=== PATIENT | female | born 1935 | race Caucasian/White ===

== ENCOUNTER 2017-02-18 07:31 | Emergency (ER) | payer MEDICARE, MEDICAID ==
[~2017-02-18] VITALS: Ht 162.6 cm; Wt 77.1 kg
[~2017-02-18 07:31] MED LIST: ACET-1742 PO; ASCO500C14 PO; ASP325T PO; CARV12.53 PO; CEFU500T PO; FLC1T PO; FRS325T PO; INSA10V SC; LOSA100T16 PO; MAGN400T6 PO; MODA200T PO; MULT1CAP27 PO; PNT40TEC PO; PRX10T PO; QTP25T PO; SIMV10TA3 PO; [UNRECOGNIZED DRUG - CODE] SQ
[2017-02-18] MEDS ORDERED: fentaNYL INJECTION 100 MCG/2 ML AMP IM STA (07:44)
--- NOTE | 2017-02-18 07:44 | ED Fall/Injury ---
General Stated Complaint: L SHOULDER PAIN Source: patient, caregiver Exam Limitations: no limitations History of Present Illness Time seen by provider: 07:39 Initial Comments Patient brought by private conveyance from the [facility], [place] after having slid out of bed trying to get up on her own. She states she did not strike her head but rather fell on her left arm and shoulder and is now having pain and will not move that arm secondary to pain. She states she did not pass out. She is having no pain anywhere else. She has a chronic history of loose stools. She still states that the bed was up to high and she needed help getting up to go the bathroom but could not get help in time so tried to go on her own and then slid to the floor. She also has a history of incontinence of stool. She denies any blood thinners. She is mostly wheelchair bound but can transfer with minimal assistance typically. Allergies and Home Medications Allergies Coded Allergies: diphenhydramine HCl (Unverified Allergy, Unknown, 04/28/11) Home Medications Acetaminophen 650 Mg Tablet.sa, 650 MG PO DAILY, (Reported) Ascorbic Acid 500 Mg Capsule.sa, 500 MG PO DAILY, (Reported) Aspirin 325 Mg Tab, 325 MG PO DAILY, (Reported) Carvedilol 12.5 Mg Tablet, 1 EACH PO BID, (Reported) Cefuroxime Axetil 500 Mg Tablet, 500 MG PO BID, #20 Ref 0 Prescribed by: EVANS HERNANDEZ on 05/07/16 0110 Ferrous Sulfate 325 Mg Tab, 325 MG PO BID WM, (Reported) Folic Acid 1 Mg Tab, 1 EACH PO DAILY, (Reported) Hum Insulin Nph/Reg Insulin Hm 1 Unit/0.01 Ml Soln, 10 UNIT SQ daily@1700, ( Reported) Insulin Aspart 10 Units/0.1 Ml Vial, 24 UNIT SC daily@0700, #1 (Reported) Losartan Potassium 100 Mg Tablet, 1 EACH PO DAILY, (Reported) Magnesium Oxide 400 Mg Tablet, 1 EACH PO BID WITH MEALS, (Reported) Modafinil 200 Mg Tablet, 200 MG PO DAILY, (Reported) Multivitamins 1 Each Capsule, 1 EACH PO DAILY, (Reported) Pantoprazole Sodium 40 Mg Tablet.dr, 1 TAB PO DAILY@0700, #30 (Reported) Paroxetine Hcl 10 Mg Tablet, 1 TAB PO DAILY, #30 (Reported) Quetiapine Fumarate 25 Mg Tablet, 1 TAB PO HS, #90 (Reported) Simvastatin 10 Mg Tablet, 10 MG PO HS, (Reported) Constitutional: see HPI, No chills, No fever, No malaise, No weakness Eyes: See HPI, Denies Blindness, Denies Blurred Vision, Denies Pain Ears, Nose, Mouth, Throat: denies mouth swelling, denies loose teeth Respiratory: No cough, No short of breath Cardiovascular: No chest pain, No edema, No palpitations, No syncope Gastrointestinal: No abdominal pain, No constipation, diarrhea, No nausea Genitourinary: No dysuria, No frequency Musculoskeletal: No back pain, joint pain (left shoulder), joint swelling ( left shoulder), No neck pain Skin: other (no abrasion, erythema or ecchymosis noted) Past Bipwndw-Cnvnve-Toatux Hx Patient Social History Alcohol Use: Denies Use Recreational Drug Use: No Smoking Status: Never a Smoker Recent Foreign Travel: No Contact w/Someone Who Travel: No Recent Hopitalizations: Yes ([facility], [place] [facility], [place]) Immunizations Up To Date PED Vaccines UTD: No Seasonal Allergies Seasonal Allergies: No Surgeries HX Surgeries: Yes Respiratory Hx Respiratory Disorders: Yes Cardiovascular Hx Cardiac Disorders: Yes Cardiac Disorders: Hypertension Neurological Hx Neurological Disorders: Yes (alzheimers) Reproductive System Hx Reproductive Disorders: No Sexually Transmitted Disease: No HIV/AIDS: No Genitourinary Hx Genitourinary Disorders: Yes Gastrointestinal Hx Gastrointestinal Disorders: Yes Gastrointestinal Disorders: Gastroesophageal Reflux Endocrine Hx Endocrine Disorders: Yes Endocrine Disorders: Diabetes, Insulin dep HEENT HX ENT Disorders: No Cancer Hx Cancer: No Psychosocial Hx Psychiatric Problems: Yes Behavioral Health Disorders: Anxiety, Depression Integumentary HX Skin/Integumentary Disorder: No Blood Transfusions Hx Blood Disorders: No Adverse Reaction to a Blood Tr: No Physical Exam Vital Signs Vital Sign - Last 12Hours 02/18/17 07:47 Temp 97.5 Pulse 82 Resp 16 B/P (MAP) 136/68 Pulse Ox 96 O2 Delivery Room Air Capillary Refill : General Appearance: WD/WN, mild distress HEENT: PERRL/EOMI, normal ENT inspection, pharynx normal Neck: non-tender, supple, normal inspection, limited range of motion (45 to the left, non tender) Cardiovascular: normal peripheral pulses, regular rate, rhythm, no edema Respiratory: chest non-tender, lungs clear, normal breath sounds, no respiratory distress, no accessory muscle use Gastrointestinal: normal bowel sounds, non tender, soft Back: normal inspection, no vertebral tenderness Extremities: other (left shoulder with modest swelling, no erythema or ecchymosis but tenderness to light palpation and refuses to move secondary to pain. 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, no motor/sensory deficits, alert, oriented x 3, other (motor, sensory and pain fibers intact to left extremity down to the fingers.) Skin: normal color, warm/dry Sharon Coma Score Best Eye Response: (4) Open Spontaneously Best Verbal Response: (5) Oriented Best Motor Response: (6) Obeys Commands Omar Total: 15 Progress/Results/Core Measures Results/Orders My Orders Orders - MERLIN SUMMERS Shoulder, Left, 3 Views (02/18/17 07:44) Elbow, Left, 3 Views (02/18/17 07:44) Cervical Spine 3 Views Or Less (02/18/17 07:44) Fentanyl Injection (Sublimaze Injection (02/18/17 07:44) Ondansetron Injection (Zofran Injectio (02/18/17 07:45) Chest 1 View, Ap/Pa Only (02/18/17 ) Hydrocodone/Apap 5/325 Tablet (Lortab 5 (02/18/17 09:15) Medications Given in ED Current Medications Medications Dose Ordered Sig/Luis A Route Start Time Stop Time Status Last Admin Dose Admin Ondansetron HCl 4 mg ONCE ONCE IM 02/18/17 07:45 02/18/17 07:48 DC 02/18/17 07:59 4 MG Vital Signs/I&O Vital Sign - Last 12Hours 02/18/17 02/18/17 02/18/17 07:47 07:57 07:59 Temp 97.5 97.5 97.5 Pulse 82 Resp 16 B/P (MAP) 136/68 Pulse Ox 96 O2 Delivery Room Air Progress Note #1: Time: 08:28 Progress Note Appears the patient slid out of bed while trying to get up and toilet herself. Sensory is no loss of consciousness and the patient has an acute finding of pain and swelling in the left shoulder we will x-ray that. She does have a moderate amount of limitation to left range of motion on her neck without any tenderness, step-off or other concerns so we will just obtain x-rays looking for gross fractures. Unknown what her baseline neck range of motion is and it is also possible that turning her neck further aggravates her left shoulder and that is limiting her movement. We'll treat her pain. Progress Note #2: Time: 08:53 Progress Note Patient with a proximal humerus fracture that is nondisplaced near classification one part and not in the anatomic neck rather it is across the greater tuberosity. She does not require urgent surgical consultation. We will put her in a sling try to give her adequate pain control and get her set up to follow up with her PCP or orthopedic surgeon of her choice in 4-7 days. Sling placed in ED. Diagnostic Imaging Diagonstic Imaging: Xray Plain Films/CT/US/NM/MRI: other (left shoulder and elbow) Comments Left prox Humeral Fx non displaced NAME: LILY WILHELM MED REC#: [id number] PT STATUS: REG ER : 1935 PHYSICIAN: MERLIN SUMMERS MD ADMIT DATE: 02/18/17/ER Draft Date of Exam:02/18/17 SHOULDER, LEFT, 3 VIEWS INDICATION: Fall pain FINDINGS: There are fractures of the proximal humerus through its neck also involving the greater tuberosity. There is no dislocation. There are glenohumeral and acromioclavicular arthritic changes. IMPRESSION: Fractures of the humeral neck and head at the greater tuberosity without dislocation. Underlying arthritis and osteopenia noted. Dictated on workstation # [id number] Dict: 02/18/17 0837 Trans: 02/18/17 0843 [facility] [id number] Interpreted by: BETTY IQBAL Electronically signed by: [facility], [place], [place] NAME: LILY WILHELM MED REC#: [id number] PT STATUS: REG ER : 1935 PHYSICIAN: MERLIN SUMMERS MD ADMIT DATE: 02/18/17/ER Draft Date of Exam:02/18/17 ELBOW, LEFT, 3 VIEWS INDICATION: Left elbow pain after fall out of bed. COMPARISON: None available. FINDINGS: No acute fracture or traumatic malalignment involving the left elbow. Minimal spurring of the medial and lateral humeral condyles at the insertion sites of the common flexor tendons. No avulsion injuries are seen. No elbow joint effusion. Mild soft tissue swelling along the dorsal aspect of the elbow. IMPRESSION: 1. No acute fracture or traumatic malalignment involving the elbow. Dictated on workstation # [id number] Dict: 02/18/1735 Trans: 02/18/1739 [facility] [id number] Interpreted by: CELI MITCHELL MD Electronically signed by: Reviewed: Reviewed by Pa Diagonstic Imaging: Xray Plain Films/CT/US/NM/MRI: c-spine Comments No Fracture or misalignment noted [place] [place], [place] NAME: CHOCO,LILY D MED REC#: [id number] PT STATUS: REG ER : 1935 PHYSICIAN: MERLIN SUMMERS MD ADMIT DATE: 02/18/17/ER Draft Date of Exam:02/18/17 CERVICAL SPINE 3 VIEWS OR LESS INDICATION: Fall, pain FINDINGS: Head is held tilted to the left and the neck is flexed given positioning. The alignment is within normal limits. The vertebral statures are unremarkable. No acute appearing endplate irregularity. Prevertebral space appeared normal. No demonstrated fracture. Degenerative changes of spondylosis and facet arthrosis throughout. IMPRESSION: Chronic degenerative changes without fracture or traumatic malalignment radiographically apparent. Dictated on workstation # [id number] Dict: 02/18/1736 Trans: 02/18/1742 [facility] [id number] Interpreted by: BETTY IQBAL Electronically signed by: Reviewed: Reviewed by Pa Diagonstic Imaging: Xray Plain Films/CT/US/NM/MRI: chest Comments [place] NAME: CHOCOLILY D MED REC#: [id number] PT STATUS: REG ER : 1935 PHYSICIAN: MERLIN SUMMERS MD ADMIT DATE: 02/18/17/ER Draft Date of Exam:02/18/17 CHEST 1 VIEW, AP/PA ONLY INDICATION: Fall pain Left humeral fractures better visualized at dedicated shoulder radiographs. No appreciable rib fracture deformity, lung contusion, pneumothorax or hemothorax. IMPRESSION: Left shoulder fractures, no acute cardiopulmonary abnormality. Dictated on workstation # [id number] Dict: 02/18/17 0838 Trans: 02/18/17 0844 [facility] [id number] Interpreted by: BETTY IQBAL Electronically signed by: Reviewed: Reviewed by Me Departure Impression Impression: Primary Impression: Fall Qualified Codes: W19.XXXA - Unspecified fall, initial encounter Disposition: HOME, SELF-CARE Condition: Improved Departure-Patient Inst. Decision time for Depature: 08:55 Referrals: EFRAIN HIDALGO MD (PCP) Primary Care Physician Patient Instructions: How to Use a Shoulder Sling, Shoulder Fracture (DC) Add. Discharge Instructions: You have a fracture in your left upper arm/shoulder. You should keep this arm immobilized with a sling until you are released by your doctor or any orthopedic surgeon of your choice. You should use the pain medicine responsibly to keep your pain under control so you can be functional. Be cautious as this pain medicine can cause drowsiness this may result in more falls. You should also be cautious with this pain medicine as it will lead to constipation. If you 're getting constipated you should reduce the use of the medicine or start using MiraLAX to keep your bowels regular. If your pain is not under good control or you have new signs or symptoms such as coolness in the hand or weakness or numbness or tingling then you should either return to the ER or speak with your primary care physician. You should also follow up with your primary care physician in 4-7 days for continued management of your left shoulder fracture. Scripts Hydrocodone/Acetaminophen (Hydrocodon -Acetaminophen 5-325) 1 Each Tablet 1 EACH PO Q6H Y for PAIN, #30 TAB 0 Refills Prov: MERLIN SUMMERS 02/18/17 Copy Copies To 1: EFRAIN HIDALGO MD, TITUS J February 18, 2017 07:44
[2017-02-18] MEDS ORDERED: ONDANSETRON 4 MG/2 ML (SDV) Z0FRAN IM ONE (07:45)
--- NOTE | 2017-02-18 08:39 | Diagnostic Imaging Report ---
INDICATION: Left elbow pain after fall out of bed. COMPARISON: None available. FINDINGS: No acute fracture or traumatic malalignment involving the left elbow. Minimal spurring of the medial and lateral humeral condyles at the insertion sites of the common flexor tendons. No avulsion injuries are seen. No elbow joint effusion. Mild soft tissue swelling along the dorsal aspect of the elbow. IMPRESSION: 1. No acute fracture or traumatic malalignment involving the elbow. Dictated by: Dictated on workstation # [id number]
--- NOTE | 2017-02-18 08:43 | Diagnostic Imaging Report ---
INDICATION: Fall pain FINDINGS: There are fractures of the proximal humerus through its neck also involving the greater tuberosity. There is no dislocation. There are glenohumeral and acromioclavicular arthritic changes. IMPRESSION: Fractures of the humeral neck and head at the greater tuberosity without dislocation. Underlying arthritis and osteopenia noted. Dictated by: Dictated on workstation # [id number]
--- NOTE | 2017-02-18 08:43 | Diagnostic Imaging Report ---
INDICATION: Fall, pain FINDINGS: Head is held tilted to the left and the neck is flexed given positioning. The alignment is within normal limits. The vertebral statures are unremarkable. No acute appearing endplate irregularity. Prevertebral space appeared normal. No demonstrated fracture. Degenerative changes of spondylosis and facet arthrosis throughout. IMPRESSION: Chronic degenerative changes without fracture or traumatic malalignment radiographically apparent. Dictated by: Dictated on workstation # [id number]
--- NOTE | 2017-02-18 08:44 | Diagnostic Imaging Report ---
INDICATION: Fall pain Left humeral fractures better visualized at dedicated shoulder radiographs. No appreciable rib fracture deformity, lung contusion, pneumothorax or hemothorax. IMPRESSION: Left shoulder fractures, no acute cardiopulmonary abnormality. Dictated by: Dictated on workstation # [id number]
[2017-02-18] MEDS ORDERED: HYDR-3812 PO (09:06)
[2017-02-18] MEDS ORDERED: HYDROcodone/APAP 5 MG/325 MG (LORTAB) TAB PO ONE (09:15)
[2017-02-18 09:33] VITALS: BP 132/62
[2017-02-19] MEDS ORDERED: ACET325T38 PO (10:24)
[2017-02-19] MEDS ORDERED: MENT71OI TP (10:24)
[2017-02-19] MEDS ORDERED: LORA-404 PO (10:24)
[2017-02-19] MEDS ORDERED: LOPE-134 PO (10:24)
[2017-02-19] MEDS ORDERED: FAMO-119 PO (10:24)
[2017-02-19] MEDS ORDERED: DEXT1DRO7 OU (10:24)
[2017-02-19] MEDS ORDERED: NYST15CR TOP (10:24)
[2017-02-19] MEDS ORDERED: INSU100V6 SQ (10:24)
[2017-02-19] MEDS ORDERED: DONE10TA41 PO (10:24)
[2017-02-19] MEDS ORDERED: PLTR10OP OU (10:24)
[2017-02-19] MEDS ORDERED: CITA20TA12 PO (10:24)
[2017-02-19] MEDS ORDERED: MAG360OR42 PO (10:24)
[2017-02-19] MEDS ORDERED: LORA2TAB PO (10:24)
[2017-02-19] MEDS ORDERED: CALC1TAB95 PO (10:24)
[2017-02-19] MEDS ORDERED: ZINC10OI TP (10:24)
[2017-02-19] MEDS ORDERED: DIPH1TAB25 PO (10:24)
[2017-02-19] MEDS ORDERED: ASPI-586 PO (10:24)
[2017-02-19] MEDS ORDERED: INSU100V SQ (10:24)
[2017-02-19] MEDS ORDERED: TR1C15 TP (10:24)
[2017-02-19] MEDS ORDERED: HYDR30CR87 TOP (10:24)
[2017-02-19] MEDS ORDERED: CIPR500T21 PO (11:17)
== END 2017-02-18 09:33 | disposition home or self-care (01) ==
LOC: EDUNIT# 07:31 → ER 07:32
DX: S42.292A Other displaced fracture of upper end of left humerus, initial encounter for closed fracture (principal); M85.89 Other specified disorders of bone density and structure, multiple sites; M19.012 Primary osteoarthritis, left shoulder; M47.812 Spondylosis without myelopathy or radiculopathy, cervical region; I10 Essential (primary) hypertension; E11.9 Type 2 diabetes mellitus without complications; R15.9 Full incontinence of feces; G30.9 Alzheimer's disease, unspecified; F02.80 Dementia in other diseases classified elsewhere, unspecified severity, without behavioral disturbance, psychotic disturbance, mood disturbance, and anxiety; Z79.4 Long term (current) use of insulin; Z79.82 Long term (current) use of aspirin; Z79.899 Other long term (current) drug therapy; W06.XXXA Fall from bed, initial encounter; Y92.122 Bedroom in nursing home as the place of occurrence of the external cause; Y99.8 Other external cause status
CPT/HCPCS: 71010; 72040; 73030; 73080; 99283

== ENCOUNTER 2017-02-18 20:04 | Observation (INO) | payer MEDICARE, MEDICAID ==
[~2017-02-18] VITALS: Ht 165.1 cm; Wt 90.7 kg
[~2017-02-18 20:04] MED LIST changes: +HYDR-3812 PO
[2017-02-18 20:37] LABS: BILIRUBIN,URINE NEGATIVE (NEGATIVE); KETONES,URINE NEGATIVE (NEGATIVE); LEUKOCYTE ESTERASE ,URINE 3+ (NEGATIVE); NITRITE,URINE POSITIVE (NEGATIVE); PH,URINE 5 (5-9); PROTEIN,URINE 2+ (NEGATIVE); UROBILINOGEN,URINE NORMAL (NORMAL)
[2017-02-18 20:46] LABS: WBC,URINE TNTC /HPF
[2017-02-18 20:52] LABS: BASOPHILS % (AUTO) 0 % (0-10); EOSINOPHILS # (AUTO) 0.1 10^3/uL (0.0-0.3); EOSINOPHILS % (AUTO) 2 % (0-10); LYMPHOCYTES % (AUTO) 13 % (12-44); MEAN CORPUSCULAR HEMOGLOBIN 31 PG (25-34); MEAN CORPUSCULAR HGB CONC 33 G/DL (32-36); MEAN CORPUSCULAR VOLUME 95 FL (80-99); MONOCYTES # (AUTO) 0.7 X 10^3 (0.0-1.0); MONOCYTES % (AUTO) 9 % (0-12); NEUTROPHILS # (AUTO) 5.6 X 10^3 (1.8-7.8); NEUTROPHILS % (AUTO) 76 % (42-75); PLATELET COUNT 127 10^3/uL (130-400); RED BLOOD COUNT 3.79 10^6/uL (4.35-5.85); RED CELL DISTRIBUTION WIDTH 12.8 % (10.0-14.5); WHITE BLOOD COUNT 7.4 10^3/uL (4.3-11.0)
--- NOTE | 2017-02-18 20:56 | ED General ---
General Chief Complaint: Glucose Problems Stated Complaint: HYPERGLYCEMIA Nursing Triage Note: PT TO ED 3 PER EMS FROM [facility] FOR C/O ELEVATED BLOOD SUGAR SINCE BREAKING ARM THIS AM. Nursing Sepsis Screen: No Definite Risk Source of Information: Patient Exam Limitations: No Limitations History of Present Illness Time Seen by Provider: 20:53 Initial Comments Patient was seen in the emergency department this morning for a fall. She sustained a right proximal humerus fracture. After coming to the residential her sugars have been elevated. Her primary care physician felt that something else may be going on that caused the fall such as a urinary tract infection and she was sent in for evaluation. She is demented and unable to provide any history. Allergies and Home Medications Allergies Coded Allergies: diphenhydramine HCl (Unverified Allergy, Unknown, 04/28/11) Home Medications Acetaminophen 650 Mg Tablet.sa, 650 MG PO DAILY, (Reported) Ascorbic Acid 500 Mg Capsule.sa, 500 MG PO DAILY, (Reported) Aspirin 325 Mg Tab, 325 MG PO DAILY, (Reported) Carvedilol 12.5 Mg Tablet, 1 EACH PO BID, (Reported) Cefuroxime Axetil 500 Mg Tablet, 500 MG PO BID, #20 Ref 0 Prescribed by: EVANS HERNANDEZ on 05/07/16 0110 Ferrous Sulfate 325 Mg Tab, 325 MG PO BID WM, (Reported) Folic Acid 1 Mg Tab, 1 EACH PO DAILY, (Reported) Hum Insulin Nph/Reg Insulin Hm 1 Unit/0.01 Ml Soln, 10 UNIT SQ daily@1700, ( Reported) Hydrocodone/Acetaminophen 1 Each Tablet, 1 EACH PO Q6H PRN for PAIN, #30 Ref 0 Prescribed by: MERLIN SUMMERS on 02/18/17 0906 Insulin Aspart 10 Units/0.1 Ml Vial, 24 UNIT SC daily@0700, #1 (Reported) Losartan Potassium 100 Mg Tablet, 1 EACH PO DAILY, (Reported) Magnesium Oxide 400 Mg Tablet, 1 EACH PO BID WITH MEALS, (Reported) Modafinil 200 Mg Tablet, 200 MG PO DAILY, (Reported) Multivitamins 1 Each Capsule, 1 EACH PO DAILY, (Reported) Pantoprazole Sodium 40 Mg Tablet.dr, 1 TAB PO DAILY@0700, #30 (Reported) Paroxetine Hcl 10 Mg Tablet, 1 TAB PO DAILY, #30 (Reported) Quetiapine Fumarate 25 Mg Tablet, 1 TAB PO HS, #90 (Reported) Simvastatin 10 Mg Tablet, 10 MG PO HS, (Reported) Constitutional: no symptoms reported, malaise, weakness, other (patient demented and unable to provide review of systems) Musculoskeletal: see HPI Hematologic/Lymphatic: No Symptoms Reported All Other Systems Reviewed Negative Unless Noted: Yes Past Lbrjsqm-Swikuf-Xywmjw Hx Patient Social History Alcohol Use: Denies Use Recreational Drug Use: No Smoking Status: Former Smoker Recent Foreign Travel: No Contact w/Someone Who Travel: No Recent Infectious Disease Expo: No Recent Hopitalizations: Yes ([facility], [place], [place], [place]) Immunizations Up To Date PED Vaccines UTD: No Seasonal Allergies Seasonal Allergies: No Surgeries HX Surgeries: Yes Respiratory Hx Respiratory Disorders: Yes Cardiovascular Hx Cardiac Disorders: Yes Cardiac Disorders: Hypertension Neurological Hx Neurological Disorders: Yes (alzheimers) Reproductive System Hx Reproductive Disorders: No Sexually Transmitted Disease: No HIV/AIDS: No Genitourinary Hx Genitourinary Disorders: Yes Gastrointestinal Hx Gastrointestinal Disorders: Yes Gastrointestinal Disorders: Gastroesophageal Reflux Endocrine Hx Endocrine Disorders: Yes Endocrine Disorders: Diabetes, Insulin dep HEENT HX ENT Disorders: No Cancer Hx Cancer: No Psychosocial Hx Psychiatric Problems: Yes Behavioral Health Disorders: Anxiety, Depression Integumentary HX Skin/Integumentary Disorder: No Blood Transfusions Hx Blood Disorders: No Adverse Reaction to a Blood Tr: No Reviewed Nursing Assessment Reviewed/Agree w Nursing PMH: Yes Physical Exam Vital Signs Vital Sign - Last 12Hours 02/18/17 20:05 Temp 98.8 Pulse 89 Resp 18 B/P (MAP) 141/71 Pulse Ox 95 O2 Delivery Room Air Capillary Refill : Less Than 3 Seconds General Appearance: No Apparent Distress, WD/WN, Other (confused cries out IV sticks for Martines catheter placement) HEENT: PERRL/EOMI, Pharynx Normal Neck: Supple Respiratory: Lungs Clear, Normal Breath Sounds Cardiovascular: Regular Rate, Rhythm Gastrointestinal: Soft Extremity: Pedal Edema, Other (left shoulder immobilizer) Neurologic/Psychiatric: Alert, No Motor/Sensory Deficits Skin: Normal Color, Warm/Dry Progress/Results/Core Measures Results/Orders Lab Results Laboratory Tests Test 02/18/17 20:28 02/18/17 20:40 Range/Units Urine Color YELLOW Urine Clarity VERY CLOUDY H Urine pH 5 5-9 Urine Specific [place] 1.020 1.016-1.022 Urine Protein 2+ H NEGATIVE Urine Glucose (UA) 4+ H NEGATIVE Urine Ketones NEGATIVE NEGATIVE Urine Nitrite POSITIVE H NEGATIVE Urine Bilirubin NEGATIVE NEGATIVE Urine Urobilinogen NORMAL NORMAL MG/DL Urine Leukocyte Esterase 3+ H NEGATIVE Urine RBC (Auto) 2+ H NEGATIVE Urine RBC 2-5 H /HPF Urine WBC TNTC H /HPF Urine Squamous Epithelial Cells 5-10 /HPF Urine Crystals NONE /LPF Urine Bacteria LARGE H /HPF Urine Casts NONE /LPF Urine Mucus NEGATIVE /LPF Urine Culture Indicated YES White Blood Count 7.4 4.3-11.0 10^3/uL Red Blood Count 3.79 L 4.35-5.85 10^6/uL Hemoglobin 11.9 11.5-16.0 G/DL Hematocrit 36 35-52 % Mean Corpuscular Volume 95 80-99 FL Mean Corpuscular Hemoglobin 31 25-34 PG Mean Corpuscular Hemoglobin Concent 33 32-36 G/DL Red Cell Distribution Width 12.8 10.0-14.5 % Platelet Count 127 L 130-400 10^3/uL Mean Platelet Volume 10.0 7.4-10.4 FL Neutrophils (%) (Auto) 76 H 42-75 % Lymphocytes (%) (Auto) 13 12-44 % Monocytes (%) (Auto) 9 0-12 % Eosinophils (%) (Auto) 2 0-10 % Basophils (%) (Auto) 0 0-10 % Neutrophils # (Auto) 5.6 1.8-7.8 X 10^3 Lymphocytes # (Auto) 1.0 1.0-4.0 X 10^3 Monocytes # (Auto) 0.7 0.0-1.0 X 10^3 Eosinophils # (Auto) 0.1 0.0-0.3 10^3/uL Basophils # (Auto) 0.0 0.0-0.1 10^3/uL Sodium Level 135 135-145 MMOL/L Potassium Level 4.2 3.6-5.0 MMOL/L Chloride Level 107 98-107 MMOL/L Carbon Dioxide Level 16 L 21-32 MMOL/L Anion Gap 12 5-14 MMOL/L Blood Urea Nitrogen 26 H 7-18 MG/DL Creatinine 1.24 0.60-1.30 MG/DL Estimat Glomerular Filtration Rate 42 BUN/Creatinine Ratio 21 Glucose Level 407 *H 70-105 MG/DL Calcium Level 8.4 L 8.5-10.1 MG/DL Total Bilirubin 0.4 0.1-1.0 MG/DL Aspartate Amino Transf (AST/SGOT) 18 5-34 U/L Alanine Aminotransferase (ALT/SGPT) 15 0-55 U/L Alkaline Phosphatase 75 40-136 U/L Total Protein 6.3 L 6.4-8.2 G/DL Albumin 3.1 L 3.2-4.5 G/DL Labs were reviewed My Orders Orders - DEMETRIA HOPE MD Cbc With Automated Diff (02/18/17 20:08) Comprehensive Metabolic Panel (02/18/17 20:08) Ua Culture If Indicated (02/18/17 20:08) Urine Culture (02/18/17 20:28) Vital Signs/I&O Vital Sign - Last 12Hours 02/18/17 20:05 Temp 98.8 Pulse 89 Resp 18 B/P (MAP) 141/71 Pulse Ox 95 O2 Delivery Room Air Blood Pressure Mean: 94 Progress Note : Progress Note Lab findings discussed with daughter. She prefers admission. Departure Communication Time/Spoke to Admitting Phy: 21:41 Communication I spoke with Dr. Cong Shin who agrees to admit. Impression Impression: Primary Impression: UTI (urinary tract infection) Additional Impressions: Diabetes mellitus out of control Mental status change Disposition: 09 ADMITTED INPATIENT Condition: Stable Decision to Admit Reason: Admit from ER (General) Decision to Admit/Date: February 18, 2017 Time/Decision to Admit Time: 21:43 Departure-Patient Inst. Referrals: EFRAIN HIDALGO MD (PCP) Primary Care Physician DEMETRIA HOPE MD February 18, 2017 20:56
[2017-02-18 21:11] LABS: ALBUMIN 3.1 G/DL (3.2-4.5); BILIRUBIN,TOTAL 0.4 MG/DL (0.1-1.0); CALCIUM 8.4 MG/DL (8.5-10.1); CREATININE SERUM 1.24 MG/DL (0.60-1.30); POTASSIUM 4.2 MMOL/L (3.6-5.0); TOTAL PROTEIN 6.3 G/DL (6.4-8.2)
[2017-02-18] MEDS ORDERED: cefTRIAXone INJECTION 1,000 MG in NS (IVPB) 50 ML IV ONE (21:45)
[2017-02-18 23:01] VITALS: BP 165/85
[2017-02-18] MEDS ORDERED: ACETAMINOPHEN 325 MG TABLET/CAPLET (TYLENOL) PO PRN (23:15)
[2017-02-18] MEDS ORDERED: CATHETER FLUSH 10 ML SYR IV PRN (23:15)
[2017-02-18] MEDS: NS IV 1000 ML 1,000 ML IV SCH (23:48)
[2017-02-19 04:00] VITALS: BP 140/65
[2017-02-19] MEDS: CATHETER FLUSH 10 ML SYR IV SCH ×2 (05:33→13:02)
[2017-02-19] MEDS: inSUlin (REGULAR) HUMAN 1 UNIT/0.01 ML (CHARGE PER UNIT) SC SCH ×2 (05:33→11:01)
[2017-02-19 08:00] VITALS: BP 127/74
[2017-02-19] MEDS ORDERED: cefTRIAXone 1 GM/NS 50 ML IVPB IV SCH ×4 (09:00→21:00)
--- NOTE | 2017-02-19 10:15 | Short Stay Summary ---
HPI History of Present Illness: 81yo woman presented to ER for the second time on day of admission with high blood sugars. She had fallen out of bed earlier on tahir morning of admission and broken her left humerus. She was sent back to the shelter but then developed blood sugars greater than 500 despite 40 units of insulin, levemir and Novolog combined. Patient was found to have a UTI in ER and was admitted for IV rehydration and antibiotics. Source: patient Exam Limitations: no limitations Date seen by provider: February 19, 2017 Attending Physician Wilton Shin MD PCP Azeem Hidalgo MD Consult Date of Admission February 18, 2017 at 22:21 Home Medications Home Medications Reviewed patient Home Medication Reconciliation Form Allergies Coded Allergies: diphenhydramine HCl (Unverified Allergy, Unknown, 04/28/11) MZJ-Ethexc-Lduzno Hx Patient Social History Alcohol Use: Denies Use Recreational Drug Use: No Smoking Status: Former Smoker Recent Foreign Travel: No Contact w/other who traveled: No Recent Hopitalizations: Yes ([facility], [place], [facility], [place]) Recent Infectious Disease Expo: No Physical Abuse Screen: No Sexual Abuse: No Immunizations Up To Date Date of Pneumonia Vaccine: Jun 24, 2016 Review of Systems ([facility]) Constitutional: no symptoms reported Other PATIENT HAS DEMENTIA, UTO Reviewed Test Results Reviewed Test Results Lab Laboratory Tests Test 02/18/17 20:08 02/18/17 20:28 02/18/17 20:40 02/19/17 05:26 Range/Units Glucometer 384 H 258 H 70-110 MG/DL Urine Color YELLOW Urine Clarity VERY CLOUDY H Urine pH 5 5-9 Urine Specific [place] 1.020 1.016-1.022 Urine Protein 2+ H NEGATIVE Urine Glucose (UA) 4+ H NEGATIVE Urine Ketones NEGATIVE NEGATIVE Urine Nitrite POSITIVE H NEGATIVE Urine Bilirubin NEGATIVE NEGATIVE Urine Urobilinogen NORMAL NORMAL MG/DL Urine Leukocyte Esterase 3+ H NEGATIVE Urine RBC (Auto) 2+ H NEGATIVE Urine RBC 2-5 H /HPF Urine WBC TNTC H /HPF Urine Squamous Epithelial Cells 5-10 /HPF Urine Crystals NONE /LPF Urine Bacteria LARGE H /HPF Urine Casts NONE /LPF Urine Mucus NEGATIVE /LPF Urine Culture Indicated YES White Blood Count 7.4 4.3-11.0 10^3/uL Red Blood Count 3.79 L 4.35-5.85 10^6/uL Hemoglobin 11.9 11.5-16.0 G/DL Hematocrit 36 35-52 % Mean Corpuscular Volume 95 80-99 FL Mean Corpuscular Hemoglobin 31 25-34 PG Mean Corpuscular Hemoglobin Concent 33 32-36 G/DL Red Cell Distribution Width 12.8 10.0-14.5 % Platelet Count 127 L 130-400 10^3/uL Mean Platelet Volume 10.0 7.4-10.4 FL Neutrophils (%) (Auto) 76 H 42-75 % Lymphocytes (%) (Auto) 13 12-44 % Monocytes (%) (Auto) 9 0-12 % Eosinophils (%) (Auto) 2 0-10 % Basophils (%) (Auto) 0 0-10 % Neutrophils # (Auto) 5.6 1.8-7.8 X 10^3 Lymphocytes # (Auto) 1.0 1.0-4.0 X 10^3 Monocytes # (Auto) 0.7 0.0-1.0 X 10^3 Eosinophils # (Auto) 0.1 0.0-0.3 10^3/uL Basophils # (Auto) 0.0 0.0-0.1 10^3/uL Sodium Level 135 135-145 MMOL/L Potassium Level 4.2 3.6-5.0 MMOL/L Chloride Level 107 98-107 MMOL/L Carbon Dioxide Level 16 L 21-32 MMOL/L Anion Gap 12 5-14 MMOL/L Blood Urea Nitrogen 26 H 7-18 MG/DL Creatinine 1.24 0.60-1.30 MG/DL Estimat Glomerular Filtration Rate 42 BUN/Creatinine Ratio 21 Glucose Level 407 *H 70-105 MG/DL Calcium Level 8.4 L 8.5-10.1 MG/DL Total Bilirubin 0.4 0.1-1.0 MG/DL Aspartate Amino Transf (AST/SGOT) 18 5-34 U/L Alanine Aminotransferase (ALT/SGPT) 15 0-55 U/L Alkaline Phosphatase 75 40-136 U/L Total Protein 6.3 L 6.4-8.2 G/DL Albumin 3.1 L 3.2-4.5 G/DL Test 02/19/17 10:55 02/19/17 11:20 Range/Units Glucometer 343 H 70-110 MG/DL Sodium Level 136 135-145 MMOL/L Potassium Level 3.9 3.6-5.0 MMOL/L Chloride Level 108 H 98-107 MMOL/L Carbon Dioxide Level 19 L 21-32 MMOL/L Anion Gap 9 5-14 MMOL/L Blood Urea Nitrogen 24 H 7-18 MG/DL Creatinine 1.18 0.60-1.30 MG/DL Estimat Glomerular Filtration Rate 44 BUN/Creatinine Ratio 20 Glucose Level 377 H 70-105 MG/DL Calcium Level 7.8 L 8.5-10.1 MG/DL Physical Exam-([facility]) Physical Exam Vital Signs VS - Last 72 Hours, by Label 02/18/17 02/18/17 02/18/17 02/19/17 20:05 22:50 23:01 04:00 Temp 98.8 99.4 98.6 99.7 Pulse 89 99 82 92 Resp 18 20 16 20 B/P (MAP) 141/71 165/85 140/65 Pulse Ox 95 95 96 95 O2 Delivery Room Air Capillary Refill : Less Than 3 SecondsLess Than 3 Seconds General Appearance: WD/WN, no apparent distress HEENT: PERRL/EOMI Neck: full range of motion, supple, normal inspection Respiratory: lungs clear, normal breath sounds, no respiratory distress, no accessory muscle use Cardiovascular: regular rate, rhythm, no edema, no gallop, no JVD, no murmur Gastrointestinal: normal bowel sounds, non tender, soft, no organomegaly Extremities: normal range of motion, non-tender, normal inspection, no pedal edema, no calf tenderness, normal capillary refill, other (left arm in sling with bruising) Neurologic/Psychiatric: no motor/sensory deficits, alert, normal mood/affect Skin: normal color, warm/dry Short Stay Diagnosis Discharge Diagnosis-Short Stay Admission Diagnosis ACUTE CYSTITIS LEFT HUMERAL FRACTURE DIABETES MELLITUS TYPE 2 WITH HYPERGLYCEMIA Final Discharge Diagnosis SEE ABOVE Conclusion Plan Patient was admitted to hospital for rehydration. She improved overnight as did her blood sugars. I expect they will continue to come down as we treat the UTI. I will DC her on cipro, Dr Hidalgo can check the C/S results to ensure this is adequate tomorrow. She has [place] on her med list, so she can take that for the humeral fracture pain. The patient has dementia, but this information was communicated to [facility]. Clinical Quality Measures DVT/VTE Risk/Contraindication: Risk Factor Score Per Nursin RFS Level Per Nursing on Admit: 4+=Very High Copy Copies To 1: AZEEM HIDALGO MD, JULIE A MD February 19, 2017 10:15
[2017-02-19] MEDS ORDERED: NYST15CR TOP (10:24)
[2017-02-19] MEDS ORDERED: ZINC10OI TP (10:24)
[2017-02-19] MEDS ORDERED: MENT71OI TP (10:24)
[2017-02-19] MEDS ORDERED: LORA2TAB PO (10:24)
[2017-02-19] MEDS ORDERED: ACET325T38 PO (10:24)
[2017-02-19] MEDS ORDERED: DONE10TA41 PO (10:24)
[2017-02-19] MEDS ORDERED: INSU100V6 SQ (10:24)
[2017-02-19] MEDS ORDERED: DEXT1DRO7 OU (10:24)
[2017-02-19] MEDS ORDERED: LORA-404 PO (10:24)
[2017-02-19] MEDS ORDERED: INSU100V SQ (10:24)
[2017-02-19] MEDS ORDERED: PLTR10OP OU (10:24)
[2017-02-19] MEDS ORDERED: MAG360OR42 PO (10:24)
[2017-02-19] MEDS ORDERED: TR1C15 TP (10:24)
[2017-02-19] MEDS ORDERED: CITA20TA12 PO (10:24)
[2017-02-19] MEDS ORDERED: HYDR30CR87 TOP (10:24)
[2017-02-19] MEDS ORDERED: DIPH1TAB25 PO (10:24)
[2017-02-19] MEDS ORDERED: ASPI-586 PO (10:24)
[2017-02-19] MEDS ORDERED: FAMO-119 PO (10:24)
[2017-02-19] MEDS ORDERED: CALC1TAB95 PO (10:24)
[2017-02-19] MEDS ORDERED: LOPE-134 PO (10:24)
[2017-02-19] MEDS: NS IV 1000 ML 1,000 ML IV SCH (10:27)
[2017-02-19] MEDS ORDERED: HYDROcodone/APAP 5 MG/325 MG (LORTAB) TAB PO PRN (10:45)
--- NOTE | 2017-02-19 10:54 | Discharge Inst-Skilled Nursing ---
Discharge Inst-Skilled NF Patient Instructions Patient Problems: 1. acute cystitis 2. CANDIDIASIS OF SKIN IN PERINEAL REGION 3. LEFT HUMERAL FRACTURE Goal: PAIN CONTROL TREAT CYSTITIS HEALING OF MACERATED SKIN Patient Instructions: TAKE ALL MEDICATIONS PRESCRIBED REMOVE LUX PER DR HIDALGO'S INSTRUCTIONS Consult/Follow Up/Orders Follow up appt.: CALL DR HIDALGO'S OFFICE FOR FURTHER RECOMMENDATIONS Skilled NF Admit to: Via [facility] Certifications SNF I certify that SNF services are required to be given on an inpatient basis because of the above named patient's need for intermediate care on a continuing basis for the conditions(s) for which he/she was receiving inpatient hospital services prior to his/her transfer to the SNF. Alf Facility Order: Nursing Services, Rn Vascular-Evaluate & Treat, Physical Therapy-Evaluate & Treat, Wound Care-Eval/Treat Discharge Diet: ADA Diet Daily Activity as Tolerated: Yes Discharge Medications New, Converted or Re-Newed RX: Other Continued Medications: Acetaminophen (Tylenol) 325 Mg Tablet 650 MG PO Q4H PRN for TEMPERATURE, TAB FOR TEMP >2 DEGREES ABOVE BASELINE AND NEEDED FOR PAIN Aspirin (Aspir 81) 81 Mg Tablet.dr 81 MG PO DAILY, TAB Calcium Carbonate/Vitamin D3 (Calcium 600 + Vit D3 Tablet) 1 Each Tablet 1 TAB PO DAILY Carvedilol (Carvedilol) 12.5 Mg Tablet 1 TAB PO DAILY Citalopram Hydrobromide (Celexa) 20 Mg Tablet 20 MG PO DAILY, TAB Dextran 70/Hypromellose (Artificial Tears) 1 Each Droperette 2 DROPS OU Q4H PRN for ITCHING, DROP Diphenoxylate HCl/Atropine (Diphenoxylate-Atrop 2.5-0.025) 1 Each Tablet 1 TAB PO BID Donepezil HCl (Donepezil HCl) 10 Mg Tablet 10 MG PO HS Famotidine (Pepcid) 20 Mg Tablet 20 MG PO DAILY, TAB Ferrous Sulfate (Feosol Tab) 325 Mg Tab 325 MG PO DAILY Hydrocodone/Acetaminophen (Hydrocodon -Acetaminophen 5-325) 1 Each Tablet 1 EACH PO Q6H PRN for PAIN, #30 TAB 0 Refills Hydrocortisone/Pramoxine (Analpram Hc 1% Cream) 28.4 Gm Cream.appl 1 GM TOP BID PRN for ITCHING, APPLIC Insulin Glargine,Hum.rec.anlog (Lantus) 100 Unit/1 Ml Vial 40 UNITS SQ HS Insulin Lispro (Humalog) 100 Unit/1 Ml Vial UNITS SQ QID SSI FSBS 60-150= 0 UNITS FSBS 151-200=4 UNITS FSBS 201-250=6 UNITS FSBS 251-300=8 UNITS FSBS 301-350= 10 UNITS FSBS 351-400=12 UNITS <[address] AND START HYPOGLYCEMIC PROTOCOL >250 FOR [address] CALL [address] FOR ORDERS Loperamide HCl (Imodium A-D) 2 Mg Tablet 2 MG PO QID PRN for DIARRHEA, TAB Lorazepam (Ativan) 0.5 Mg Tablet 0.5 MG PO BID, TAB Lorazepam (Lorazepam) 2 Mg Tablet 2 MG PO DAILY PRN for ANXIETY Mag Hydrox/Al Hydrox/Simeth (Maglox Liquid) 360 Ml Oral.susp 30 ML PO Q4H PRN for INDIGESTION, ML Menthol/Lanolin/Calamine/Znox (Calmoseptine Ointment) 71 Gm Oint 1 GM TP Q3HR PRN for RASH APPLY TO BUTTOCK Nystatin (Nystatin) 15 Gm Cream..g. 1 APPLIC TOP TID APPLY TO BUTTOCK Polymyxin B Sulf/Trimethoprim (Polymyxin B-Tmp Eye Drops) 10 Ml Drops 1 DROP OU BID Simvastatin (Simvastatin) 10 Mg Tablet 10 MG PO HS Triamcinolone Acet (Triamcinolone Acetonide 0.1% Cream) 15 Gm Cr 1 APPLIC TP BID PRN for RASH, TUBE Zinc Oxide (Boudreauxs) 10 Gm Oint.pack 1 APPLIC TP BID PRN for RASH, TUBE Elda Shin February 19, 2017 10:50 Copy Copies To 1: EFRAIN HIDALGO MD, JULIE A MD February 19, 2017 10:54
[2017-02-19] MEDS ORDERED: CIPR500T21 PO (11:17)
[2017-02-19 11:48] LABS: CALCIUM 7.8 MG/DL (8.5-10.1); CREATININE SERUM 1.18 MG/DL (0.60-1.30); POTASSIUM 3.9 MMOL/L (3.6-5.0)
[2017-02-19 12:00] VITALS: BP 129/86
== END 2017-02-19 10:48 ==
LOC: EDUNIT# 20:04 → ER 20:06 → UNDOADMOB 22:21 → 4TH 22:21 → UNDODISOB 02-19 14:47
PROVIDERS: ADMIT Family Medicine; ATTEND Family Medicine
DX: N30.00 Acute cystitis without hematuria (principal); E11.65 Type 2 diabetes mellitus with hyperglycemia; S42.202D Unspecified fracture of upper end of left humerus, subsequent encounter for fracture with routine healing; G30.9 Alzheimer's disease, unspecified; F02.80 Dementia in other diseases classified elsewhere, unspecified severity, without behavioral disturbance, psychotic disturbance, mood disturbance, and anxiety; B37.2 Candidiasis of skin and nail; W06.XXXD Fall from bed, subsequent encounter; Y92.122 Bedroom in nursing home as the place of occurrence of the external cause
CPT/HCPCS: 36415; 80048; 80053; 81000; 82962; 85025; 87088; 87186; G0378

== ENCOUNTER → 2017-03-05 | Outpatient (CLI) | payer MEDICARE, MEDICAID ==
[~2017-03-05] MED LIST changes: +ACET325T38 PO; +ASPI-586 PO; +CALC1TAB95 PO; +CIPR500T21 PO; +CITA20TA12 PO; +DEXT1DRO7 OU; +DIPH1TAB25 PO; +DONE10TA41 PO; +FAMO-119 PO; +HYDR30CR87 TOP; +INSU100V SQ; +INSU100V6 SQ; +LOPE-134 PO; +LORA-404 PO; +LORA2TAB PO; +MAG360OR42 PO; +MENT71OI TP; +NYST15CR TOP; +PLTR10OP OU; +TR1C15 TP; +ZINC10OI TP
[2017-03-06 03:58] LABS: BILIRUBIN,URINE NEGATIVE (NEGATIVE); KETONES,URINE NEGATIVE (NEGATIVE); LEUKOCYTE ESTERASE ,URINE 3+ (NEGATIVE); NITRITE,URINE NEGATIVE (NEGATIVE); PH,URINE 5 (5-9); PROTEIN,URINE 2+ (NEGATIVE); UROBILINOGEN,URINE NORMAL (NORMAL)
[2017-03-06 04:05] LABS: SQUAMOUS EPITHELIAL CELL,UR 0-2 /HPF; YEAST,URINE FEW /HPF
== END ==
LOC: CVS 23:45
PROVIDERS: ATTEND Family Medicine
DX: N39.0 Urinary tract infection, site not specified (principal); Z96.0 Presence of urogenital implants
CPT/HCPCS: 81000; 87088

== ENCOUNTER 2017-03-28 16:34 | Emergency (ER) | payer MEDICARE, MEDICAID ==
[~2017-03-28] VITALS: Ht 167.6 cm; Wt 90.7 kg
--- NOTE | 2017-03-28 17:45 | ED General ---
General Chief Complaint: Altered Mental Status Stated Complaint: URINARY SYMPTOMS Nursing Triage Note: Pt was combative and [facility]gl[facility]" at the [facility]. Pt was given Ativan at the [facility]. On ER arrival, pt awake and mildly confused. Daughter at bedside states this is her norm. Hx of recent humerus fracture that is currently in a sling. Nursing Sepsis Screen: No Definite Risk History of Present Illness Time Seen by Provider: 17:30 Initial Comments Patient transferred from via [facility] for being combative. On evaluation here the patient is cooperative and answers questions appropriately. She is alert and responsive. The daughter reports that she had a urinary tract infection, was this to have a follow-up UA a few days ago and that has not been completed. Her daughter is power of criminal defense attorney, patient is DO NOT RESUSCITATE. The daughter reports that she is in her normal mental status at this time. Upon checking via [facility] the records indicate that she was given Cipro beginning of February and then Macrobid from March 17-. Timing/Duration: 1 Day Severity: Mild Associated Systoms: Denies Symptoms Allergies and Home Medications Allergies Coded Allergies: diphenhydramine HCl (Unverified Allergy, Unknown, 04/28/11) Home Medications Acetaminophen 325 Mg Tablet, 650 MG PO Q4H PRN for TEMPERATURE, (Reported) FOR TEMP >2 DEGREES ABOVE BASELINE AND NEEDED FOR PAIN Aspirin 81 Mg Tablet.dr, 81 MG PO DAILY, (Reported) Calcium Carbonate/Vitamin D3 1 Each Tablet, 1 TAB PO DAILY, (Reported) Carvedilol 12.5 Mg Tablet, 1 TAB PO DAILY, (Reported) Ciprofloxacin/Ciprofloxa HCl 500 Mg Tbmp.24hr, 500 MG PO BID for 7 Days, #14 Ref 0 Prescribed by: KIRSTY GANDHI on 02/19/17 1117 Citalopram Hydrobromide 20 Mg Tablet, 20 MG PO DAILY, (Reported) Dextran 70/Hypromellose 1 Each Droperette, 2 DROPS OU Q4H PRN for ITCHING, ( Reported) Diphenoxylate HCl/Atropine 1 Each Tablet, 1 TAB PO BID, (Reported) Donepezil HCl 10 Mg Tablet, 10 MG PO HS, (Reported) Famotidine 20 Mg Tablet, 20 MG PO DAILY, (Reported) Ferrous Sulfate 325 Mg Tab, 325 MG PO DAILY, (Reported) Hydrocodone/Acetaminophen 1 Each Tablet, 1 EACH PO Q6H PRN for PAIN, #30 Ref 0 Prescribed by: MERLIN SUMMERS on 02/18/17 0906 Hydrocortisone/Pramoxine 28.4 Gm Cream.appl, 1 GM TOP BID PRN for ITCHING, ( Reported) Insulin Glargine,Hum.rec.anlog 100 Unit/1 Ml Vial, 40 UNITS SQ HS, (Reported) Insulin Lispro 100 Unit/1 Ml Vial, UNITS SQ QID, (Reported) SSI FSBS 60-150= 0 UNITS FSBS 151-200=4 UNITS FSBS 201-250=6 UNITS FSBS 251- 300=8 UNITS FSBS 301-350= 10 UNITS FSBS 351-400=12 UNITS <[address] AND START HYPOGLYCEMIC PROTOCOL >250 FOR [address] FOR ORDERS Loperamide HCl 2 Mg Tablet, 2 MG PO QID PRN for DIARRHEA, (Reported) Lorazepam 0.5 Mg Tablet, 0.5 MG PO BID, (Reported) Lorazepam 2 Mg Tablet, 2 MG PO DAILY PRN for ANXIETY, (Reported) Mag Hydrox/Al Hydrox/Simeth 360 Ml Oral.susp, 30 ML PO Q4H PRN for INDIGESTION, (Reported) Menthol/Lanolin/Calamine/Znox 71 Gm Oint, 1 GM TP Q3HR PRN for RASH, (Reported) APPLY TO BUTTOCK Nystatin 15 Gm Cream..g., 1 APPLIC TOP TID, (Reported) APPLY TO BUTTOCK Polymyxin B Sulf/Trimethoprim 10 Ml Drops, 1 DROP OU BID, (Reported) Simvastatin 10 Mg Tablet, 10 MG PO HS, (Reported) Sulfamethoxazole/Trimethoprim 1 Each Tablet, 1 EACH PO Q12H for 7 Days, #14 Ref 0 Prescribed by: DAVON BUI on 03/28/171938 Triamcinolone Acet 15 Gm Cr, 1 APPLIC TP BID PRN for RASH, (Reported) Zinc Oxide 10 Gm Oint.pack, 1 APPLIC TP BID PRN for RASH, (Reported) Constitutional: see HPI, other (mild confusion, compatible with her history of dementia.) EENTM: no symptoms reported, see HPI Respiratory: no symptoms reported, see HPI Cardiovascular: no symptoms reported, see HPI Gastrointestinal: no symptoms reported, see HPI Genitourinary: no symptoms reported, see HPI, incontinence Musculoskeletal: no symptoms reported, see HPI Skin: no symptoms reported, see HPI Psychiatric/Neurological: No Symptoms Reported, See HPI Hematologic/Lymphatic: No Symptoms Reported, See HPI Immunological/Allergic: no symptoms reported, see HPI All Other Systems Reviewed Negative Unless Noted: Yes Past Jpwfvnl-Xaeuxy-Lboewz Hx Patient Social History Alcohol Use: Denies Use Recreational Drug Use: No Smoking Status: Unknown if Ever Smoked Recent Foreign Travel: No Contact w/Someone Who Travel: No Recent Infectious Disease Expo: No Recent Hopitalizations: Yes ([facility], [place] [place], [facility], [place]) Immunizations Up To Date PED Vaccines UTD: No Date of Pneumonia Vaccine: Jun 24, 2016 Seasonal Allergies Seasonal Allergies: No Surgeries HX Surgeries: Yes Respiratory Hx Respiratory Disorders: Yes Cardiovascular Hx Cardiac Disorders: Yes Cardiac Disorders: Hypertension Neurological Hx Neurological Disorders: Yes (alzheimers) Reproductive System Hx Reproductive Disorders: No Sexually Transmitted Disease: No HIV/AIDS: No Genitourinary Hx Genitourinary Disorders: Yes Gastrointestinal Hx Gastrointestinal Disorders: Yes Gastrointestinal Disorders: Gastroesophageal Reflux Endocrine Hx Endocrine Disorders: Yes Endocrine Disorders: Diabetes, Insulin dep HEENT HX ENT Disorders: No Cancer Hx Cancer: No Psychosocial Hx Psychiatric Problems: Yes Behavioral Health Disorders: Anxiety, Depression Integumentary HX Skin/Integumentary Disorder: No Blood Transfusions Hx Blood Disorders: No Adverse Reaction to a Blood Tr: No Reviewed Nursing Assessment Reviewed/Agree w Nursing PMH: Yes Physical Exam Vital Signs Vital Sign - Last 12Hours 03/28/17 16:34 Temp 97.5 Pulse 70 Resp 18 B/P (MAP) 101/43 Pulse Ox 95 O2 Delivery Room Air Capillary Refill : Less Than 3 Seconds General Appearance: No Apparent Distress, WD/WN HEENT: PERRL/EOMI, Normal ENT Inspection, Pharynx Normal, Other (oral mucosa pink and dry, patient taking ice chips) Neck: Full Range of Motion, Normal Inspection, Supple Respiratory: Chest Non Tender, Lungs Clear, Normal Breath Sounds Cardiovascular: Regular Rate, Rhythm, No Murmur Gastrointestinal: Normal Bowel Sounds, No Organomegaly, No Pulsatile Mass, Non Tender, Soft, Distended Extremity: Normal Inspection, Normal Range of Motion, Other (pain left humerus , history of humeral fracture. Sling in place) Neurologic/Psychiatric: Alert (to person and place, recognized her daughter and appropriately named her. Stated the year was 1956.), No Motor/Sensory Deficits, Normal Mood/Affect Skin: Normal Color, Warm/Dry Lymphatic: No Adenopathy Progress/Results/Core Measures Results/Orders Lab Results Laboratory Tests Test 03/28/17 17:45 03/28/17 18:24 Range/Units Urine Color YELLOW Urine Clarity SLIGHTLY CLOUDY Urine pH 5 5-9 Urine Specific [place] 1.025 H 1.016-1.022 Urine Protein 2+ H NEGATIVE Urine Glucose (UA) NEGATIVE NEGATIVE Urine Ketones NEGATIVE NEGATIVE Urine Nitrite POSITIVE H NEGATIVE Urine Bilirubin NEGATIVE NEGATIVE Urine Urobilinogen NORMAL NORMAL MG/DL Urine Leukocyte Esterase 3+ H NEGATIVE Urine RBC (Auto) 2+ H NEGATIVE Urine RBC NONE /HPF Urine WBC TNTC H /HPF Urine Squamous Epithelial Cells 5-10 /HPF Urine Crystals NONE /LPF Urine Bacteria LARGE H /HPF Urine Casts NONE /LPF Urine Mucus SMALL H /LPF Urine Culture Indicated YES Glucometer 169 H 70-110 MG/DL My Orders Orders - DAVON BUI Ua Culture If Indicated (03/28/17 17:41) Saline Lock/Iv-Start (03/28/17 17:46) Ns Iv 1000 Ml (Sodium Chloride 0.9%) (03/28/17 17:46) Urine Culture (03/28/17 17:45) Accucheck Stat ONCE (03/28/17 18:19) Sulfamethoxazole/Trimet Ds Tab (Bactrim (03/28/17 18:31) Vital Signs/I&O Vital Sign - Last 12Hours 03/28/17 03/28/17 16:34 20:02 Temp 97.5 97.5 Pulse 70 72 Resp 18 18 B/P (MAP) 101/43 Pulse Ox 95 97 O2 Delivery Room Air Room Air Blood Pressure Mean: 62 Progress Note : Time: 17:30 Progress Note Initial evaluation completed. Will obtain labs and reevaluate patient. 1800 patient refused to have IV fluids or labs drawn. Agreed to have Accu-Chek only. Discussed this with her daughter, she would like to have the labs completed however she is in agreement with her mother if she refuses to have them done. 1820 Accu-Chek 169. UA positive for urinary tract infection. Will start Bactrim DS by mouth 1900 notified via [facility] that the patient will be ready for discharge, they will be providing transfer back via van. Informed him the first dose of Bactrim DS was administered in the emergency department. Departure Impression Impression: Primary Impression: UTI (urinary tract infection) Qualified Codes: N30.01 - Acute cystitis with hematuria Additional Impression: Dementia Qualified Codes: F03.91 - Unspecified dementia with behavioral disturbance Disposition: HOME, SELF-CARE Condition: Stable Departure-Patient Inst. Decision time for Depature: 18:30 Referrals: EFRAIN HIDALGO MD (PCP/Family) Primary Care Physician Patient Instructions: Urinary Tract Infection, Adult (DC) Add. Discharge Instructions: Increase water intake. Follow-up on culture results in 2-3 days. Change brief and pad frequently. Return to emergency department or see Dr. Hidalgo for fevers, confusion, or new problems. All discharge instructions reviewed with patient and/or family. Voiced understanding. Scripts Sulfamethoxazole/Trimethoprim (Bactrim Ds Tablet) 1 Each Tablet 1 EACH PO Q12H for 7 Days, #14 TAB 0 Refills Prov: DAVON BUI 03/28/17 Copy Copies To 1: EFRAIN HIDALGO MD, AMY ARNP Mar 28, 2017 17:45
[2017-03-28] MEDS ORDERED: NS IV 1000 ML 1,000 ML IV ONE (17:46)
[2017-03-28 17:55] LABS: BILIRUBIN,URINE NEGATIVE (NEGATIVE); KETONES,URINE NEGATIVE (NEGATIVE); LEUKOCYTE ESTERASE ,URINE 3+ (NEGATIVE); NITRITE,URINE POSITIVE (NEGATIVE); PH,URINE 5 (5-9); PROTEIN,URINE 2+ (NEGATIVE); UROBILINOGEN,URINE NORMAL (NORMAL)
[2017-03-28 18:11] LABS: WBC,URINE TNTC /HPF
[2017-03-28] MEDS ORDERED: TRIM/SULFAMETH 160/800 (SEPTRA DS) TAB PO STA (18:31)
--- OUTSIDE RECORDS SUMMARY | 2017-03-28 18:53 | XMS REPORT | Continuity of Care Document ---
Author Author [facility] Address Unknown Phone Unavailable Allergies Active Description Code Type Severity Reaction Onset Reported/Identified Relationship to Patient Clinical Status Yes diphenhydramine HCl [id number] Drug Allergy Unknown N/A 04/28/2011 Yes Antihistamines Drug Allergy N/A N/A 12/27/2011 Yes Antihistamines Drug Allergy 12/27/2011 Yes PLASTIC TAPE Miscellaneous Allergy N/A Rash 12/17/2012 Yes PLASTIC TAPE Miscellaneous Allergy Rash 12/17/2012 Yes *MRSA Drug Allergy N/A N/A 12/20/2012 Yes *MRSA Drug Allergy 12/20/2012 Medications Problems Date Dx Coded Attending Type Code Diagnosis Diagnosed By 05/27/2011 Ot 250.00 05/27/2011 Ot 263.0 05/27/2011 Ot 272.4 05/27/2011 Ot 275.2 05/27/2011 Ot 278.00 05/27/2011 Ot 280.0 05/27/2011 Ot 294.8 05/27/2011 Ot 300.4 05/27/2011 Ot 305.1 05/27/2011 Ot 401.9 05/27/2011 Ot 414.01 05/27/2011 Ot 424.0 05/27/2011 Ot 496 05/27/2011 Ot 715.90 05/27/2011 Ot 721.0 05/27/2011 Ot 721.90 05/27/2011 Ot 782.1 05/27/2011 Ot V45.82 05/27/2011 Ot V46.2 05/27/2011 Ot V57.1 05/27/2011 Ot V57.21 05/27/2011 Ot V58.67 05/27/2011 Ot V58.75 05/27/2011 Ot V85.32 06/01/2011 D 780.4 DIZZINESS AND GIDDINESS 06/01/2011 D 780.79 OTHER MALAISE & FATIGUE 06/01/2011 D 787.99 OTH SYM DIGESTIVE SYSTEM 06/02/2011 D 288.60 LEUKOCYTOSIS NOS 06/02/2011 D 599.70 HEMATURIA NOS 06/02/2011 D 791.0 PROTEINURIA 06/02/2011 D 791.9 ABN URINE FINDINGS NEC 06/16/2011 D 250.00 DM2/NOS UNCOMP NSU 06/16/2011 D 401.9 HYPERTENSION NOS 06/16/2011 D 998.30 DISRUPTION WOUND NOS 06/29/2011 D 251.2 HYPOGLYCEMIA NOS 06/29/2011 D 298.9 PSYCHOSIS NOS 06/29/2011 D 780.79 OTHER MALAISE & FATIGUE 06/29/2011 D 780.8 GENERAL HYPERHIDROSIS 06/29/2011 D 782.61 PALLOR 06/29/2011 D 250.82 DM2/NOS W MANIF NEC UNC 06/29/2011 D 780.79 OTHER MALAISE & FATIGUE 06/29/2011 D V58.67 LONG-TERM INSULIN USE 04/19/2012 D 787.91 DIARRHEA 04/19/2012 D 569.42 ANAL OR RECTAL PAIN 04/19/2012 D 787.91 DIARRHEA 04/19/2012 D 911.1 ABRASION TRUNK-INFECTED 04/19/2012 D E928.9 ACCIDENT NOS 04/19/2012 D 569.42 ANAL OR RECTAL PAIN 04/19/2012 D 787.91 DIARRHEA 04/19/2012 D 911.1 ABRASION TRUNK-INFECTED 04/19/2012 D E928.9 ACCIDENT NOS 04/22/2012 D 041.12 MRSA 04/22/2012 D 041.3 K. PNEUMONIAE INFECT 04/22/2012 D 250.00 DM2/NOS UNCOMP NSU 04/22/2012 D 285.9 ANEMIA NOS 04/22/2012 D 300.00 ANXIETY STATE NOS 04/22/2012 D 401.9 HYPERTENSION NOS 04/22/2012 D 414.00 CAD UNS [place]GR 04/22/2012 D 564.1 IRRITABLE BOWEL SYNDROME 04/22/2012 D 569.42 ANAL OR RECTAL PAIN 04/22/2012 D 599.0 URIN TRACT INFECTION NOS 06/11/2012 D 250.00 DM2/NOS UNCOMP NSU 06/11/2012 D 300.00 ANXIETY STATE NOS 06/11/2012 D 414.00 CAD UNS [place]GR 06/11/2012 D 786.50 CHEST PAIN NOS 06/11/2012 D V45.89 POSTSURGICAL STATUS NEC 06/11/2012 D 250.00 DM2/NOS UNCOMP NSU 06/11/2012 D 300.00 ANXIETY STATE NOS 06/11/2012 D 414.00 CAD UNS [place]GR 06/11/2012 D 786.50 CHEST PAIN NOS 06/11/2012 D V45.89 POSTSURGICAL STATUS NEC 06/11/2012 D 250.00 DM2/NOS UNCOMP NSU 06/11/2012 D 300.00 ANXIETY STATE NOS 06/11/2012 D 414.00 CAD UNS [place]GR 06/11/2012 D 786.50 CHEST PAIN NOS 06/11/2012 D V45.89 POSTSURGICAL STATUS NEC 12/06/2012 SCOTT BHATTI 285.9 ANEMIA NOS 12/06/2012 SCOTT BHATTI 564.1 IRRITABLE BOWEL SYNDROME 12/06/2012 SCOTT BHATTI 780.79 OTHER MALAISE & FATIGUE 12/16/2012 JORGE RAMOS MD 251.2 HYPOGLYCEMIA NOS 12/16/2012 JORGE RAMOS MD 780.09 ALTERATION/CONSCIOUSNESS 12/16/2012 ADONIS KNAPP DO 251.2 HYPOGLYCEMIA NOS 12/16/2012 ADONIS KNAPP DO 780.09 ALTERATION/CONSCIOUSNESS 12/16/2012 JORGE RAMOS MD 251.2 HYPOGLYCEMIA NOS 12/16/2012 JORGE RAMOS MD 780.09 ALTERATION/CONSCIOUSNESS 12/17/2012 ADONIS KNAPP DO 251.2 HYPOGLYCEMIA NOS 12/17/2012 ADONIS KNAPP DO 780.09 ALTERATION/CONSCIOUSNESS 12/19/2012 ADONIS KNAPP DO 251.2 HYPOGLYCEMIA NOS 12/19/2012 ADONIS KNAPP DO 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 12/19/2012 ADONIS KNAPP DO 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, UNSP W/CI 12/19/2012 ADONIS KNAPP DO 579.3 INTEST POSTOP NONABSORB 12/19/2012 ADONIS KNAPP DO 780.09 ALTERATION/CONSCIOUSNESS 12/19/2012 ADONIS KNAPP DO 780.79 OTHER MALAISE & [place]UE 12/19/2012 ADONIS KNAPP DO 787.91 DIARRHEA 12/19/2012 ADONIS KNAPP DO 789.00 ABDOMINAL PAIN, UNSPECIF 12/24/2012 ADONIS KNAPP DO 250.00 DM2/NOS UNCOMP NSU 12/24/2012 ADONIS KNAPP DO 401.9 HYPERTENSION NOS 12/24/2012 ADONIS KNAPP DO 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, UNSP W/CI 12/24/2012 ADONIS KNAPP DO 599.0 URIN TRACT INFECTION NOS 12/24/2012 ADONIS KNAPP DO 780.79 OTHER MALAISE & [place]IGUE 12/24/2012 ADONIS KNAPP DO V57.89 REHABILITATION PROC NEC 12/24/2012 ADONIS KNAPP DO V58.67 LONG-TERM INSULIN USE 11/17/2014 Ot 791.9 11/17/2014 Ot 787.91 11/19/2014 Ot 791.9 11/19/2014 Ot 787.91 12/17/2014 Ot 298.9 12/17/2014 Ot 323.9 12/18/2014 Ot 298.9 12/18/2014 Ot 323.9 12/18/2014 Ot 298.9 12/18/2014 Ot 323.9 12/18/2014 Ot 298.9 12/18/2014 Ot 323.9 03/03/2015 Ot 298.9 03/03/2015 Ot 323.9 05/07/2016 EVANS HERNANDEZ DO Ot N39.0 URINARY TRACT INFECTION, SITE NOT SPECIF 05/07/2016 EVANS HERNANDEZ DO Ot R45.6 VIOLENT BEHAVIOR 05/09/2016 EVANS HERNANDEZ DO Ot N39.0 URINARY TRACT INFECTION, SITE NOT SPECIF 05/09/2016 EVANS HERNANDEZ DO Ot R45.6 VIOLENT BEHAVIOR 02/19/2017 EDSON GANDHI MD Ot B37.2 CANDIDIASIS OF SKIN AND NAIL 02/19/2017 EDSON GANDHI MD Ot E11.65 TYPE 2 DIABETES MELLITUS WITH HYPERGLYCE 02/19/2017 EDSON GANDHI MD Ot F02.80 DEMENTIA IN [facility] DISEASES CLASSD ELSWHR W 02/19/2017 EDSON GANDHI MD Ot G30.9 ALZHEIMER'S DISEASE, UNSPECIFIED 02/19/2017 EDSON GANDHI MD, Ot N30.00 ACUTE CYSTITIS WITHOUT HEMATURIA 02/19/2017 EDSON GANDHI MD Ot S42.202D UNSP FX UPPER END OF L HUMERUS, SUBS FOR 02/19/2017 EDSON GANDHI MD Ot W06.XXXD FALL FROM BED, SUBSEQUENT ENCOUNTER 02/19/2017 EDSON GANDHI MD Ot Y92.[address] 02/21/2017 MERLIN SUMMERS MD Ot E11.9 TYPE 2 DIABETES MELLITUS WITHOUT COMPLIC 02/21/2017 MERLIN SUMMERS MD Ot F02.80 DEMENTIA IN OTH DISEASES CLASSD ELSWHR W 02/21/2017 MERLIN SUMMERS MD Ot G30.9 ALZHEIMER'S DISEASE, UNSPECIFIED 02/21/2017 MERLIN SUMMERS MD Ot I10 ESSENTIAL (PRIMARY) HYPERTENSION 02/21/2017 MERLIN SUMMERS MD Ot M19.012 PRIMARY OSTEOARTHRITIS, LEFT SHOULDER 02/21/2017 MERLIN SUMMERS MD Ot M47.812 SPONDYLOSIS W/O MYELOPATHY OR RADICULOPA 02/21/2017 MERLIN SUMMERS MD Ot M85.89 OTH DISRD OF BONE DENSITY AND STRUCTURE, 02/21/2017 MERLIN SUMMERS MD Ot R15.9 FULL INCONTINENCE OF FECES 02/21/2017 MERLIN SUMMERS MD Ot S42.292A OTH DISP FX OF UPPER END OF LEFT HUMERUS 02/21/2017 MERLIN SUMMERS MD Ot S49.92XA UNSP INJURY OF LEFT SHOULDER AND UPPER A 02/21/2017 MERLIN SUMMERS MD Ot W06.XXXA FALL FROM BED, INITIAL ENCOUNTER 02/21/2017 MERLIN SUMMERS MD Ot Y92.[address] 02/21/2017 MERLIN SUMMERS MD Ot Y99.8 OTHER EXTERNAL CAUSE STATUS 02/21/2017 MERLIN SUMMERS MD Ot 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 02/21/2017 MERLIN SUMMERS MD Ot Z79.82 [facility] (CURRENT) USE OF ASPIRIN 02/21/2017 MERLIN SUMMERS MD, Ot Z79.899 OTHER MOTION PICTURE PROJECTIONIST (CURRENT) DRUG THERAPY Procedures Code Description [place] [address] ROUTINE VENIPUNCTURE ADONIS KNAPP DO 06/01/2011 80296 COMPREHEN METABOLIC PANEL ADONIS KNAPP DO 06/01/2011 78590 COMPLETE CBC W/AUTO DIFF WBC ADONIS KNAPP DO 06/01/2011 30584 URINALYSIS, AUTO W/SCOPE ADONIS KNAPP DO 06/02/2011 51087 URINE CULTURE/COLONY COUNT ADONIS KNAPP DO 06/02/2011 07242 METABOLIC PANEL TOTAL CA RACHEL COLEMAN, JORGE Aide 06/16/2011 27326 COMPLETE CBC W/AUTO DIFF WBC RACHEL COLEMAN, JORGE Aide 06/16/2011 99602 RBC SED RATE, NONAUTOMATED RACHEL COLEMAN, JORGE Noble 06/16/2011 01529 EMERGENCY DEPT VISIT JORGE COLEMAN, DORA Dugan 06/29/2011 A0425 [facility] JORGE COLEMAN, DORA Dugan 06/29/2011 A0427 ALS1 EMERGENCY JORGE COLEMAN, DORA Dugan 06/29/2011 72573 ROUTINE VENIPUNCTURE ADONIS KNAPP DO 04/19/2012 34700 COMPREHEN METABOLIC PANEL ADONIS KNAPP DO 04/19/2012 48682 COMPLETE CBC W/AUTO DIFF WBC ADONIS KNAPP DO 04/19/2012 63884 THER/PROPH/DIAG INJ, IV PUSH ADONIS KNAPP DO 04/19/2012 97837 EMERGENCY DEPT VISIT ADONIS KNAPP DO 04/19/2012 J2270 MORPHINE ADONIS KNAPP DO 04/19/2012 A0425 [facility] ADONIS KNAPP DO 04/19/2012 A0429 BLS EMERGENCY ADONIS KNAPP DO 04/19/2012 65761 EMERGENCY DEPT VISIT ADONIS KNAPP DO 04/19/2012 44205 ROUTINE VENIPUNCTURE RACHEL COLEMAN, JORGE Noble 06/11/2012 48437 CHEST X-RAY ADONIS KNAPP DO 06/11/2012 44921 METABOLIC PANEL TOTAL CA ADONIS KNAPP DO 06/11/2012 91358 COMPREHEN METABOLIC PANEL ADONIS KNAPP DO 06/11/2012 24803 LIPID PANEL ADONIS KNAPP DO 06/11/2012 18892 ASSAY OF CK (CPK) ADONIS KNAPP DO 06/11/2012 44541 CREATINE, MB FRACTION ADONIS KNAPP DO 06/11/2012 51847 NATRIURETIC PEPTIDE ADONIS KNAPP DO 06/11/2012 76710 ASSAY OF TROPONIN, QUANT ADONIS KNAPP DO 06/11/2012 55429 COMPLETE CBC W/AUTO DIFF WBC ADONIS KNAPP DO 06/11/2012 03376 CULTURE, BACTERIA, OTHER ADONIS KNAPP DO 06/11/2012 89780 SMEAR, GRAM STAIN ADONIS KNAPP DO 06/11/2012 47522 ELECTROCARDIOGRAM, TRACING ADONIS KNAPP DO 06/11/2012 34248 TTE W/DOPPLER, COMPLETE ADONIS KNAPP DO 06/11/2012 43479 EMERGENCY DEPT VISIT ADONIS KNAPP DO 06/11/2012 G0378 HOSPITAL OBSERVATION PER HR RACHEL COLEMAN, JORGE Noble 06/11/2012 11024 ELECTROCARDIOGRAM REPORT RACHEL COLEMAN, JORGE Noble 06/11/2012 49784 EMERGENCY DEPT VISIT RACHEL COLEMAN, JORGE Noble 06/11/2012 01088 [facility] [place] 12/06/2012 85381 COMPREHEN METABOLIC PANEL [facility], [place] L 12/06/2012 93633 COMPLETE CBC W/AUTO DIFF WBC [facility] , [place] Aide 12/06/2012 78019 ELECTROCARDIOGRAM REPORT RACHEL COLEMAN, JORGE Noble 12/16/2012 96914 ROUTINE VENIPUNCTURE RACHEL COLEMAN, JORGE Noble 12/16/2012 36943 COMPREHEN METABOLIC PANEL RACHEL COLEMAN, JORGE Noble 12/16/2012 25948 ASSAY OF PROLACTIN RACHEL COLEMAN, JORGE Noble 12/16/2012 82853 COMPLETE CBC W/AUTO DIFF WBC RACHEL COLEMAN, JORGE Noble 12/16/2012 30407 BLOOD CULTURE FOR BACTERIA RACHEL COLEMAN, JORGE Noble 12/16/2012 41142 ELECTROCARDIOGRAM, TRACING RACHEL COLEMAN, JORGE Noble 12/16/2012 25674 THER/PROPH/DIAG INJ, IV PUSH RACHEL COLEMAN, JORGE Noble 12/16/2012 74495 TX/PRO/DX INJ NEW DRUG JOYD RAMOS MD, JORGE Noble 12/16/2012 92563 TX/PRO/DX INJ NEW DRUG DARRYL RAMOS MD, JORGE Noble 12/16/2012 32723 EMERGENCY DEPT VISIT RACHEL COLEMAN, JORGE Noble 12/16/2012 J0360 HYDRALAZINE HCL INJ RACHEL COLEMAN, JORGE Noble 12/16/2012 J2060 ATIVAN INJECTION RACHEL COLEMAN, JORGE Noble 12/16/2012 J2270 MORPHINE RACHEL COLEMAN, JORGE Noble 12/16/2012 A0425 GROUND MILEAGE RACHEL COLEMAN, JORGE Noble 12/16/2012 A0427 ALS1 EMERGENCY RACHEL COLEMAN, JORGE Noble 12/16/2012 67253 EMERGENCY DEPT VISIT RACHEL COLEMAN, JORGE Noble 12/16/2012 53360 ELECTROCARDIOGRAM REPORT RACHEL COLEMAN, JORGE Noble 12/17/2012 Results Test Result Range COMPLETE BLOOD COUNT - 12/06/12 15:46 Platelet 181 10^3u 142-424 MPV 9.9 FL 9.4-12.4 [place] # 0.51 10^3u 0.0-1.0 RBC 3.65 10^6u 4.04-6.13 [place] % 8.4 % 0-12 RDW 12.9 % 11.6-14.8 Neut # 3.68 10^3u 2.0-6.9 Neut % 60.9 % 37-80 WBC 6.05 10^3u 4.60-10.20 MCV 93.4 FL 80.0-97.0 Baso # 0.02 10^3u 0.0-0.1 Baso % 0.3 % 0-2 Eos # 0.15 10^3u 0-7 Eos % 2.5 % 0.0-0.7 Lymph % 27.9 % 10-50 MCHC 34.0 G/DL 31.8-35.4 MCH 31.8 PG 27.0-31.2 Lymph # 1.69 10^3u 0.6-3.4 HGB 11.6 G/DL 12.2-18.1 HCT 34.1 % 37.7-53.7 CMP - 12/06/12 15:46 Osmo Calculated 273 MOSM 261-280 Sodium 143 MMOLL 137-145 T. Protein 7.0 G/DL 6.3-8.2 Potassium 3.9 MMOLL 3.6-5.0 T Bili 0.5 MG/DL 0.2-1.3 Calcium 9.0 MG/DL 8.4-10.2 BUN 14 MG/DL 7-21 Chloride 109 MMOLL 98-107 AST 30 U/L 15-46 ALT 25 U/L 7-56 Albumin 3.7 G/DL 3.5-5.0 A/G Ratio 1.1 RATIO 1.2-2.2 Bun/Creat 17.6 RATIO 7-25 Alk Phos 89 U/L 38-126 CO2 22 MMOLL 22-30 Glucose 50 MG/DL 65-110 Globulin 3.3 2.4-3.5 Creatinine 0.8 MG/DL 0.7-1.5 COMPLETE BLOOD COUNT - 12/16/12 21:02 Platelet 178 10^3u 142-424 MPV 10.2 FL 9.4-12.4 [place] # 0.81 10^3u 0.0-1.0 RBC 3.88 10^6u 4.04-6.13 [place] % 9.6 % 0-12 RDW 13.4 % 11.6-14.8 Neut # 6.36 10^3u 2.0-6.9 Neut % 75.4 % 37-80 WBC 8.44 10^3u 4.60-10.20 MCV 95.6 FL 80.0-97.0 Baso # 0.02 10^3u 0.0-0.1 Baso % 0.2 % 0-2 Eos # 0.09 10^3u 0-7 Eos % 1.1 % 0.0-0.7 Lymph % 13.7 % 10-50 MCHC 33.7 G/DL 31.8-35.4 MCH 32.2 PG 27.0-31.2 Lymph # 1.16 10^3u 0.6-3.4 HGB 12.5 G/DL 12.2-18.1 HCT 37.1 % 37.7-53.7 CMP - 12/16/12 21:02 Osmo Calculated 284 MOSM 261-280 Sodium 145 MMOLL 137-145 T. Protein 7.5 G/DL 6.3-8.2 Potassium 4.2 MMOLL 3.6-5.0 T Bili 0.6 MG/DL 0.2-1.3 Calcium 9.4 MG/DL 8.4-10.2 BUN 29 MG/DL 7-21 Chloride 107 MMOLL 98-107 AST 47 U/L 15-46 ALT 33 U/L 7-56 Albumin 4.0 G/DL 3.5-5.0 A/G Ratio 1.1 RATIO 1.2-2.2 Bun/Creat 29.0 RATIO 7-25 Alk Phos 104 U/L 38-126 CO2 24 MMOLL 22-30 Glucose 76 MG/DL 65-110 Globulin 3.5 2.4-3.5 Creatinine 1.0 MG/DL 0.7-1.5 Blood Culture - 12/16/12 21:02 Blood Culture [facility] Blood Culture - 12/16/12 21:02 Blood Culture [facility] Prolactin - 12/16/12 21:34 Prolactin 44.09 NG/ML EKG - 12/16/12 21:35 EKG [facility] Cardiac Panel - 12/16/12 22:12 CKMB 1.7 NG/ML <=6 Troponin I 0.02 NG/ML <=0.20 CPK 58 U/L 30-170 MRSA Nasal Screen - 12/16/12 22:15 MRSA Nasal Screen [facility] COMPLETE BLOOD COUNT - 12/17/12 06:02 Platelet 153 10^3u 142-424 MPV 10.5 FL 9.4-12.4 [place] # 0.52 10^3u 0.0-1.0 RBC 3.27 10^6u 4.04-6.13 [place] % 7.7 % 0-12 RDW 13.2 % 11.6-14.8 Neut # 5.39 10^3u 2.0-6.9 Neut % 79.6 % 37-80 WBC 6.78 10^3u 4.60-10.20 MCV 95.1 FL 80.0-97.0 Baso # 0.01 10^3u 0.0-0.1 Baso % 0.1 % 0-2 Eos # 0.01 10^3u 0-7 Eos % 0.1 % 0.0-0.7 Lymph % 12.5 % 10-50 MCHC 34.4 G/DL 31.8-35.4 MCH 32.7 PG 27.0-31.2 Lymph # 0.85 10^3u 0.6-3.4 HGB 10.7 G/DL 12.2-18.1 HCT 31.1 % 37.7-53.7 CMP - 12/17/12 06:02 Osmo Calculated 276 MOSM 261-280 Sodium 140 MMOLL 137-145 T. Protein 6.3 G/DL 6.3-8.2 Potassium 3.9 MMOLL 3.6-5.0 T Bili 0.6 MG/DL 0.2-1.3 Calcium 8.4 MG/DL 8.4-10.2 BUN 23 MG/DL 7-21 Chloride 104 MMOLL 98-107 AST 43 U/L 15-46 ALT 31 U/L 7-56 Albumin 3.1 G/DL 3.5-5.0 A/G Ratio 1.0 RATIO 1.2-2.2 Bun/Creat 26.9 RATIO 7-25 Alk Phos 84 U/L 38-126 CO2 25 MMOLL 22-30 Glucose 140 MG/DL 65-110 Globulin 3.2 2.4-3.5 Creatinine 0.9 MG/DL 0.7-1.5 EKG - 12/17/12 07:41 EKG [facility] Urinalysis - 12/17/12 09:09 Glucose Negative Negative Leukocyte 1+ Negative Nitrite Negative Negative pH 5.5 5.5-7.5 Urine Appearance Cloudy Clear Protein 3+ Negative Ketones Negative Negative Urobilinogen 0.2 0.2-1.0 Urine RBC TNTC Specific [place] >=1.030 1.010-1.020 Urine WBC TNTC Urine Bacteria Trace Blood 1+ Negative Color Yellow Yellow SG by Refractometer 1.019 Squamous Epithelial Cells Trace Bilirubin Negative Negative Urine Culture [facility] Urine Culture - 12/17/12 09:40 Urine Culture [facility] COMPLETE BLOOD COUNT - 12/18/12 07:10 Platelet 135 10^3u 142-424 MPV 10.6 FL 9.4-12.4 [place] # 0.59 10^3u 0.0-1.0 RBC 3.26 10^6u 4.04-6.13 [place] % 11.8 % 0-12 RDW 13.2 % 11.6-14.8 Neut # 3.09 10^3u 2.0-6.9 Neut % 61.5 % 37-80 WBC 5.02 10^3u 4.60-10.20 MCV 95.7 FL 80.0-97.0 Baso # 0.01 10^3u 0.0-0.1 Baso % 0.2 % 0-2 Eos # 0.08 10^3u 0-7 Eos % 1.6 % 0.0-0.7 Lymph % 24.9 % 10-50 MCHC 33.7 G/DL 31.8-35.4 MCH 32.2 PG 27.0-31.2 Lymph # 1.25 10^3u 0.6-3.4 HGB 10.5 G/DL 12.2-18.1 HCT 31.2 % 37.7-53.7 BMP - 12/18/12 07:10 Osmo Calculated 279 MOSM 261-280 Sodium 142 MMOLL 137-145 Potassium 3.6 MMOLL 3.6-5.0 Calcium 8.3 MG/DL 8.4-10.2 BUN 20 MG/DL 7-21 Chloride 106 MMOLL 98-107 Anion GAP 10.0 Bun/Creat 24.5 RATIO 7-25 CO2 26 MMOLL 22-30 Glucose 133 MG/DL 65-110 Creatinine 0.8 MG/DL 0.7-1.5 C Diff Toxin/Antigen - 12/18/12 12:32 C Diff Antigen NEG Negative C Diff Toxin NEG Negative COMPLETE BLOOD COUNT - 12/20/12 06:27 Platelet 150 10^3u 142-424 MPV 10.4 FL 9.4-12.4 [place] # 0.69 10^3u 0.0-1.0 RBC 3.33 10^6u 4.04-6.13 [place] % 11.5 % 0-12 RDW 13.0 % 11.6-14.8 Neut # 3.88 10^3u 2.0-6.9 Neut % 64.5 % 37-80 WBC 6.01 10^3u 4.60-10.20 MCV 94.9 FL 80.0-97.0 Baso # 0.01 10^3u 0.0-0.1 Baso % 0.2 % 0-2 Eos # 0.09 10^3u 0-7 Eos % 1.5 % 0.0-0.7 Lymph % 22.3 % 10-50 MCHC 34.2 G/DL 31.8-35.4 MCH 32.4 PG 27.0-31.2 Lymph # 1.34 10^3u 0.6-3.4 HGB 10.8 G/DL 12.2-18.1 HCT 31.6 % 37.7-53.7 BNP - 12/20/12 06:27 BNP 177.5 PG/ML <=100 CMP - 12/20/12 06:27 Osmo Calculated 284 MOSM 261-280 Sodium 145 MMOLL 137-145 T. Protein 6.3 G/DL 6.3-8.2 Potassium 3.5 MMOLL 3.6-5.0 T Bili 0.8 MG/DL 0.2-1.3 Calcium 8.5 MG/DL 8.4-10.2 BUN 18 MG/DL 7-21 Chloride 108 MMOLL 98-107 AST 52 U/L 15-46 ALT 34 U/L 7-56 Albumin 3.2 G/DL 3.5-5.0 A/G Ratio 1.0 RATIO 1.2-2.2 Bun/Creat 20.3 RATIO 7-25 Alk Phos 83 U/L 38-126 CO2 26 MMOLL 22-30 Glucose 142 MG/DL 65-110 Globulin 3.1 2.4-3.5 Creatinine 0.9 MG/DL 0.7-1.5 C Diff Toxin/Antigen - 12/20/12 10:24 C Diff Antigen NEG Negative C Diff Toxin NEG Negative Culture Genital - 12/23/12 22:32 Culture Genital S[facility] Urinalysis - 12/24/12 00:01 Glucose Trace Negative Leukocyte Negative Negative Nitrite Positive Negative pH 5.0 5.5-7.5 Urine Appearance Clear Clear Protein 2+ Negative Ketones Negative Negative Urobilinogen 1.0 0.2-1.0 Urine RBC NONESEEN Specific [place] 1.020 1.010-1.020 Urine WBC N3-5 Blood Negative Negative Color [place] Yellow Squamous Epithelial Cells 1+ Bilirubin Negative Negative Complete blood count (CBC) with automated white blood cell (WBC) differential - 05/06/16 21:50 Blood leukocytes automated count (number/volume) 4.7 10*3/ uL 4.3-11.0 Blood erythrocytes automated count (number/volume) 3.49 10*6 /uL 4.35-5.85 Venous blood hemoglobin measurement (mass/volume) 11.6 g/dL 11.5-16.0 Blood hematocrit (volume fraction) 34 % 35-52 Automated erythrocyte mean corpuscular volume 97 [foz_us] 80-99 Automated erythrocyte mean corpuscular hemoglobin (mass per erythrocyte) 33 pg 25-34 Automated erythrocyte mean corpuscular hemoglobin concentration measurement ( mass/volume) 34 g/dL 32-36 Automated erythrocyte distribution width ratio 12.0 % 10.0-14.5 Automated blood platelet count (count/volume) 121 10*3/uL 130-400 Automated blood platelet mean volume measurement 9.8 [foz_us ] 7.4-10.4 Automated blood neutrophils/100 leukocytes 69 % 42-75 Automated blood lymphocytes/100 leukocytes 18 % 12-44 Blood monocytes/100 leukocytes 9 % 0-12 Automated blood eosinophils/100 leukocytes 4 % 0-10 Automated blood basophils/100 leukocytes 0 % 0-10 Blood neutrophils automated count (number/volume) 3.2 10*3 1.8-7.8 Blood lymphocytes automated count (number/volume) 0.9 10*3 1.0-4.0 Blood monocytes automated count (number/volume) 0.4 10*3 0.0-1.0 Automated eosinophil count 0.2 10*3/uL 0.0-0.3 Automated blood basophil count (count/volume) 0.0 10*3/uL 0.0-0.1 Comprehensive metabolic panel - 05/06/16 21:50 Serum or plasma sodium measurement (moles/volume) 138 mmol/ L 135-145 Serum or plasma potassium measurement (moles/volume) 4.5 mmol/L 3.6-5.0 Serum or plasma chloride measurement (moles/volume) 107 mmol /L 98-107 Carbon dioxide 19 mmol/L 21-32 Serum or plasma anion gap determination (moles/volume) 12 mmol/L 5-14 Serum or plasma urea nitrogen measurement (mass/volume) 21 mg/dL 7-18 Serum or plasma creatinine measurement (mass/volume) 1.09 mg /dL 0.60-1.30 Serum or plasma urea nitrogen/creatinine mass ratio 19 NRG Serum or plasma creatinine measurement with calculation of estimated glomerular filtration rate 48 NRG Serum or plasma glucose measurement (mass/volume) 165 mg/dL 70-105 Serum or plasma calcium measurement (mass/volume) 8.8 mg/dL 8.5-10.1 Serum or plasma total bilirubin measurement (mass/volume) 0.4 mg/dL 0.1-1.0 Serum or plasma alkaline phosphatase measurement (enzymatic activity/volume) 73 U/L 40-136 Serum or plasma aspartate aminotransferase measurement (enzymatic activity/ volume) 20 U/L 5-34 Serum or plasma alanine aminotransferase measurement (enzymatic activity/volume ) 18 U/L 0-55 Serum or plasma protein measurement (mass/volume) 6.1 g/dL 6.4-8.2 Serum or plasma albumin measurement (mass/volume) 3.3 g/dL 3.2-4.5 Magnesium - 05/06/16 21:50 Magnesium 1.7 mg/dL 1.8-2.4 Complete urinalysis with reflex to culture - 05/06/16 22:00 Urine color determination YELLOW NRG Urine clarity determination VERY CLOUDY NRG Urine pH measurement by test strip 5 5- 9 Specific gravity of urine by test strip 1.020 1.016-1.022 Urine protein assay by test strip, semi-quantitative 2+ NEGATIVE Urine glucose detection by automated test strip NEGATIVE NEGATIVE Erythrocytes detection in urine sediment by light microscopy 2+ NEGATIVE Urine ketones detection by automated test strip NEGATIVE NEGATIVE Urine nitrite detection by test strip POSITIVE NEGATIVE Urine total bilirubin detection by test strip NEGATIVE NEGATIVE Urine urobilinogen measurement by automated test strip (mass/volume) NORMAL NORMAL Urine leukocyte esterase detection by dipstick 3+ NEGATIVE Automated urine sediment erythrocyte count by microscopy (number/high power field) NONE NRG Automated urine sediment leukocyte count by microscopy (number/high power field ) TNTC NRG Bacteria detection in urine sediment by light microscopy LARGE NRG Crystals detection in urine sediment by light microscopy NONE NRG Casts detection in urine sediment by light microscopy NONE NRG Mucus detection in urine sediment by light microscopy NEGATIVE NRG Complete urinalysis with reflex to culture YES NRG Bacterial urine culture - 05/06/16 22:00 Bacterial urine culture [id number] NRG COLONY COUNT >100,000/ML NR FTX;REPORTABLE SENSITIVITY REPORTED AT 0755, 8-15-16 NR URINE CULTURE RESULTS PLUS [facility] Bacterial susceptibility panel - 05/06/16 22:00 Gentamicin susceptibility test by minimum inhibitory concentration <= NRG Trimethoprim/sulfamethoxazole susceptibility test by minimum inhibitoryconcentration >= NRG Ampicillin susceptibility test by minimum inhibitory concentration >= NRG Tobramycin susceptibility test by minimum inhibitory concentration <= NRG Cefazolin susceptibility test by minimum inhibitory concentration 8 NRG Ceftriaxone susceptibility test by minimum inhibitory concentration <= NRG Ampicillin/sulbactam susceptibility test by minimum inhibitory concentration >= NR Piperacillin/tazobactam susceptibility test by minimum inhibitory concentration <= NRG Ciprofloxacin susceptibility test by minimum inhibitory concentration >= NR Meropenem susceptibility test by minimum inhibitory concentration <= NRG Nitrofurantoin susceptibility test by minimum inhibitory concentration <= NRG Aztreonam susceptibility test by minimum inhibitory concentration <= NRG Extended spectrum beta lactamase (ESBL) producing bacteria susceptibility test by minimum inhibitory concentration - NR Capillary blood glucose measurement by glucometer (mass/volume) - 02/18/17 20: 08 Capillary blood glucose measurement by glucometer (mass/volume) 384 mg/dL 70-110 Complete urinalysis with reflex to culture - 02/18/17 20:28 Urine color determination YELLOW NRG Urine clarity determination VERY CLOUDY NRG Urine pH measurement by test strip 5 5- 9 Specific gravity of urine by test strip 1.020 1.016-1.022 Urine protein assay by test strip, semi-quantitative 2+ NEGATIVE Urine glucose detection by automated test strip 4+ NEGATIVE Erythrocytes detection in urine sediment by light microscopy 2+ NEGATIVE Urine ketones detection by automated test strip NEGATIVE NEGATIVE Urine nitrite detection by test strip POSITIVE NEGATIVE Urine total bilirubin detection by test strip NEGATIVE NEGATIVE Urine urobilinogen measurement by automated test strip (mass/volume) NORMAL NORMAL Urine leukocyte esterase detection by dipstick 3+ NEGATIVE Automated urine sediment erythrocyte count by microscopy (number/high power field) [HPF] NRG Automated urine sediment leukocyte count by microscopy (number/high power field ) TNTC NRG Bacteria detection in urine sediment by light microscopy LARGE NRG Squamous epithelial cells detection in urine sediment by light microscopy 5-10 NRG Crystals detection in urine sediment by light microscopy NONE NRG Casts detection in urine sediment by light microscopy NONE NRG Mucus detection in urine sediment by light microscopy NEGATIVE NRG Complete urinalysis with reflex to culture YES NRG Bacterial urine culture - 02/18/17 20:28 Bacterial urine culture [id number] NRG COLONY COUNT >100,000/ML NRG FTX;REPORTABLE SENSITIVITY REPORTED 02/20/17 7:05 NRG Bacterial susceptibility panel - 02/18/17 20:28 Gentamicin susceptibility test by minimum inhibitory concentration <= NRG Trimethoprim/sulfamethoxazole susceptibility test by minimum inhibitoryconcentration >= NRG Ampicillin susceptibility test by minimum inhibitory concentration >= NRG Tobramycin susceptibility test by minimum inhibitory concentration <= NRG Cefazolin susceptibility test by minimum inhibitory concentration 8 NRG Ceftriaxone susceptibility test by minimum inhibitory concentration <= NRG Ampicillin/sulbactam susceptibility test by minimum inhibitory concentration >= NRG Piperacillin/tazobactam susceptibility test by minimum inhibitory concentration <= NRG Ciprofloxacin susceptibility test by minimum inhibitory concentration >= NRG Meropenem susceptibility test by minimum inhibitory concentration <= NRG Nitrofurantoin susceptibility test by minimum inhibitory concentration <= NRG Aztreonam susceptibility test by minimum inhibitory concentration <= NRG Extended spectrum beta lactamase (ESBL) producing bacteria susceptibility test by minimum inhibitory concentration - NRG Complete blood count (CBC) with automated white blood cell (WBC) differential - 02/18/17 20:40 Blood leukocytes automated count (number/volume) 7.4 10*3/ uL 4.3-11.0 Blood erythrocytes automated count (number/volume) 3.79 10*6 /uL 4.35-5.85 Venous blood hemoglobin measurement (mass/volume) 11.9 g/dL 11.5-16.0 Blood hematocrit (volume fraction) 36 % 35-52 Automated erythrocyte mean corpuscular volume 95 [foz_us] 80-99 Automated erythrocyte mean corpuscular hemoglobin (mass per erythrocyte) 31 pg 25-34 Automated erythrocyte mean corpuscular hemoglobin concentration measurement ( mass/volume) 33 g/dL 32-36 Automated erythrocyte distribution width ratio 12.8 % 10.0-14.5 Automated blood platelet count (count/volume) 127 10*3/uL 130-400 Automated blood platelet mean volume measurement 10.0 [foz_ us] 7.4-10.4 Automated blood neutrophils/100 leukocytes 76 % 42-75 Automated blood lymphocytes/100 leukocytes 13 % 12-44 Blood monocytes/100 leukocytes 9 % 0-12 Automated blood eosinophils/100 leukocytes 2 % 0-10 Automated blood basophils/100 leukocytes 0 % 0-10 Blood neutrophils automated count (number/volume) 5.6 10*3 1.8-7.8 Blood lymphocytes automated count (number/volume) 1.0 10*3 1.0-4.0 Blood monocytes automated count (number/volume) 0.7 10*3 0.0-1.0 Automated eosinophil count 0.1 10*3/uL 0.0-0.3 Automated blood basophil count (count/volume) 0.0 10*3/uL 0.0-0.1 Comprehensive metabolic panel - 02/18/17 20:40 Serum or plasma sodium measurement (moles/volume) 135 mmol/ L 135-145 Serum or plasma potassium measurement (moles/volume) 4.2 mmol/L 3.6-5.0 Serum or plasma chloride measurement (moles/volume) 107 mmol /L 98-107 Carbon dioxide 16 mmol/L 21-32 Serum or plasma anion gap determination (moles/volume) 12 mmol/L 5-14 Serum or plasma urea nitrogen measurement (mass/volume) 26 mg/dL 7-18 Serum or plasma creatinine measurement (mass/volume) 1.24 mg /dL 0.60-1.30 Serum or plasma urea nitrogen/creatinine mass ratio 21 NRG Serum or plasma creatinine measurement with calculation of estimated glomerular filtration rate 42 NRG Serum or plasma glucose measurement (mass/volume) 407 mg/dL 70-105 Serum or plasma calcium measurement (mass/volume) 8.4 mg/dL 8.5-10.1 Serum or plasma total bilirubin measurement (mass/volume) 0.4 mg/dL 0.1-1.0 Serum or plasma alkaline phosphatase measurement (enzymatic activity/volume) 75 U/L 40-136 Serum or plasma aspartate aminotransferase measurement (enzymatic activity/ volume) 18 U/L 5-34 Serum or plasma alanine aminotransferase measurement (enzymatic activity/volume ) 15 U/L 0-55 Serum or plasma protein measurement (mass/volume) 6.3 g/dL 6.4-8.2 Serum or plasma albumin measurement (mass/volume) 3.1 g/dL 3.2-4.5 Capillary blood glucose measurement by glucometer (mass/volume) - 02/19/17 05: 26 Capillary blood glucose measurement by glucometer (mass/volume) 258 mg/dL 70-110 Capillary blood glucose measurement by glucometer (mass/volume) - 02/19/17 10: 55 Capillary blood glucose measurement by glucometer (mass/volume) 343 mg/dL 70-110 Whole blood basic metabolic panel - 02/19/17 11:20 Serum or plasma sodium measurement (moles/volume) 136 mmol/ L 135-145 Serum or plasma potassium measurement (moles/volume) 3.9 mmol/L 3.6-5.0 Serum or plasma chloride measurement (moles/volume) 108 mmol /L 98-107 Carbon dioxide 19 mmol/L -32 Serum or plasma anion gap determination (moles/volume) 9 mmol/L 5-14 Serum or plasma urea nitrogen measurement (mass/volume) 24 mg/dL 7-18 Serum or plasma creatinine measurement (mass/volume) 1.18 mg /dL 0.60-1.30 Serum or plasma urea nitrogen/creatinine mass ratio 20 NRG Serum or plasma creatinine measurement with calculation of estimated glomerular filtration rate 44 NRG Serum or plasma glucose measurement (mass/volume) 377 mg/dL 70-105 Serum or plasma calcium measurement (mass/volume) 7.8 mg/dL 8.5-10.1 Bacterial urine culture - 03/05/17 23:45 Bacterial urine culture [id number] NRG COLONY COUNT 10,000/ML - 100,000/ML NRG URINE CULTURE RESULTS PLUS NRG Encounters ACCT No. Visit Date/Time Discharge Status Pt. Type Provider Facility Loc./Unit Complaint [id number] 12/19/2012 15:15:00 12/24/2012 15 :05:00 DIS Inpatient [facility] NS1 [id number] 12/16/2012 22:20:00 12/19/2012 15 :14:00 DIS Inpatient [facility] NS1 [id number] 12/16/2012 20:50:00 12/16/2012 22 :20:00 DIS Emergency [facility] ER [id number] 12/16/2012 20:55:00 12/16/2012 20 :55:00 DIS Outpatient [facility] OTHER [id number] 12/16/2012 20:50:00 12/16/2012 20 :50:00 DIS Outpatient RACHEL COLEMAN, [facility] OTHER [id number] 12/16/2012 20:35:00 12/16/2012 20 :35:00 DIS Outpatient RACHEL COLEMAN, [facility] OTHER [id number] 12/06/2012 15:43:00 12/06/2012 15 :43:00 [id number] 06/11/2012 03:15:00 06/11/2012 23 :59:59 CLS Outpatient [id number] 06/11/2012 02:25:00 06/11/2012 23 :59:59 CLS Outpatient [id number] 06/11/2012 01:55:00 06/11/2012 23 :59:59 CLS Outpatient [id number] 04/19/2012 21:45:00 04/19/2012 23 :59:59 CLS Outpatient [id number] 04/19/2012 20:55:00 04/19/2012 23 :59:59 CLS Emergency [id number] 04/19/2012 20:26:00 04/19/2012 23 :59:59 CLS Outpatient [id number] 06/29/2011 01:05:00 06/29/2011 23 :59:59 CLS Emergency [id number] 06/29/2011 00:19:00 06/29/2011 23 :59:59 CLS Outpatient [id number] 06/16/2011 17:19:00 06/16/2011 23 :59:59 CLS Outpatient [id number] 06/02/2011 14:47:00 06/02/2011 23 :59:59 CLS Outpatient [id number] 06/01/2011 12:38:00 06/01/2011 23 :59:59 CLS Outpatient [id number] 06/11/2012 01:55:00 Document Registration [id number] 04/19/2012 22:55:00 Inpatient
[2017-03-28] MEDS ORDERED: SULF1TAB35 PO ×2 (19:19→19:39)
[2017-03-28 20:02] VITALS: BP 110/40
== END 2017-03-28 20:02 | disposition home or self-care (01) ==
LOC: EDUNIT# 16:34 → ER 16:36
DX: N39.0 Urinary tract infection, site not specified (principal); G30.9 Alzheimer's disease, unspecified; F02.80 Dementia in other diseases classified elsewhere, unspecified severity, without behavioral disturbance, psychotic disturbance, mood disturbance, and anxiety; I10 Essential (primary) hypertension; E11.9 Type 2 diabetes mellitus without complications; K21.9 Gastro-esophageal reflux disease without esophagitis; F41.9 Anxiety disorder, unspecified; F32.9 Major depressive disorder, single episode, unspecified; Z79.4 Long term (current) use of insulin; Z79.82 Long term (current) use of aspirin
CPT/HCPCS: 81000; 82962; 87088; 87186; 99283

== ENCOUNTER → 2017-04-13 | Outpatient (CLI) | payer MEDICARE, MEDICAID ==
[~2017-04-13] MED LIST changes: +CEPH-507 PO; +SULF1TAB35 PO
== END ==
LOC: CVS 16:24
PROVIDERS: ATTEND Family Medicine
DX: R19.7 Diarrhea, unspecified (principal)
CPT/HCPCS: 87324; 87449

== ENCOUNTER → 2017-07-08 | Outpatient (CLI) | payer MEDICARE, MEDICAID | LOC: CVS 10:58 | PROVIDERS: ATTEND Family Medicine | DX: N39.0 Urinary tract infection, site not specified (principal) | CPT/HCPCS: 87088 ==

== ENCOUNTER → 2017-08-04 | Outpatient (CLI) | payer MEDICARE, MEDICAID ==
[~2017-08-04] MED LIST changes: +DIPH1TAB PO; +FERR-84 PO; +LORA0.5T PO; +MAGN400O7 PO; +NITR-65 PO; +[UNRECOGNIZED DRUG - CODE] OD
[2017-08-04 23:59] LABS: BILIRUBIN,URINE NEGATIVE (NEGATIVE); KETONES,URINE NEGATIVE (NEGATIVE); LEUKOCYTE ESTERASE ,URINE 1+ (NEGATIVE); NITRITE,URINE NEGATIVE (NEGATIVE); PH,URINE 5 (5-9); PROTEIN,URINE 2+ (NEGATIVE); UROBILINOGEN,URINE NORMAL (NORMAL)
[2017-08-05 00:09] LABS: YEAST,URINE LARGE /HPF
== END ==
LOC: LABNPT 23:51
PROVIDERS: ATTEND Family Medicine
DX: R82.90 Unspecified abnormal findings in urine (principal); N39.9 Disorder of urinary system, unspecified
CPT/HCPCS: 81000; 87077; 87088; 87186

== ENCOUNTER → 2017-08-21 | Outpatient (CLI) | payer MEDICARE, MEDICAID ==
[2017-08-21 23:08] LABS: BILIRUBIN,URINE NEGATIVE (NEGATIVE); KETONES,URINE NEGATIVE (NEGATIVE); LEUKOCYTE ESTERASE ,URINE 1+ (NEGATIVE); NITRITE,URINE NEGATIVE (NEGATIVE); PH,URINE 5 (5-9); PROTEIN,URINE 2+ (NEGATIVE); UROBILINOGEN,URINE NORMAL (NORMAL)
[2017-08-21 23:21] LABS: SQUAMOUS EPITHELIAL CELL,UR >50 /HPF; WBC,URINE 25-50 /HPF; YEAST,URINE MODERATE /HPF
== END ==
LOC: CVS 15:45
PROVIDERS: ATTEND Family Medicine
DX: R82.90 Unspecified abnormal findings in urine (principal)
CPT/HCPCS: 81000; 87088

== ENCOUNTER → 2017-10-26 | Outpatient (CLI) | payer MEDICARE, MEDICAID ==
[~2017-10-26] MED LIST changes: +ACHD5005 PO; -HYDR-3812 PO
== END ==
LOC: LABNPT 18:00
PROVIDERS: ATTEND Family Medicine
DX: Z53.9 Procedure and treatment not carried out, unspecified reason (principal)

== ENCOUNTER → 2017-10-26 | Outpatient (CLI) | payer MEDICARE, MEDICAID | LOC: CVS 18:00 | PROVIDERS: ATTEND Family Medicine | DX: N39.0 Urinary tract infection, site not specified (principal) | CPT/HCPCS: 87077; 87088; 87186 ==

== ENCOUNTER 2017-10-30 11:40 | Emergency (ER) | payer MEDICARE, MEDICAID ==
[~2017-10-30] VITALS: Ht 165.1 cm; Wt 101.2 kg
[2017-10-30 12:16] LABS: BASOPHILS % (AUTO) 0 % (0-10); EOSINOPHILS # (AUTO) 0.2 10^3/uL (0.0-0.3); EOSINOPHILS % (AUTO) 3 % (0-10); HEMATOCRIT 35 % (35-52); HEMOGLOBIN 11.9 G/DL (11.5-16.0); LYMPHOCYTES % (AUTO) 19 % (12-44); MEAN CORPUSCULAR HEMOGLOBIN 33 PG (25-34); MEAN CORPUSCULAR HGB CONC 34 G/DL (32-36); MEAN CORPUSCULAR VOLUME 96 FL (80-99); MEAN PLATELET VOLUME 10.3 FL (7.4-10.4); MONOCYTES # (AUTO) 0.3 X 10^3 (0.0-1.0); MONOCYTES % (AUTO) 6 % (0-12); NEUTROPHILS # (AUTO) 3.8 X 10^3 (1.8-7.8); NEUTROPHILS % (AUTO) 72 % (42-75); PLATELET COUNT 125 10^3/uL (130-400); RED BLOOD COUNT 3.65 10^6/uL (4.35-5.85); RED CELL DISTRIBUTION WIDTH 12.8 % (10.0-14.5); WHITE BLOOD COUNT 5.3 10^3/uL (4.3-11.0)
[2017-10-30 12:34] LABS: ALBUMIN 3.2 GM/DL (3.2-4.5); BILIRUBIN,TOTAL 0.6 MG/DL (0.1-1.0); CALCIUM 8.8 MG/DL (8.5-10.1); CREATININE SERUM 0.94 MG/DL (0.60-1.30); MAGNESIUM 1.6 MG/DL (1.8-2.4); POTASSIUM 4.3 MMOL/L (3.6-5.0); TOTAL PROTEIN 6.2 GM/DL (6.4-8.2)
[2017-10-30] MEDS ORDERED: NS IV 1000 ML 1,000 ML IV ONE (12:49)
[2017-10-30] MEDS ORDERED: cefTRIAXone INJECTION 1,000 MG in NS (IVPB) 50 ML IV ONE (13:00)
--- NOTE | 2017-10-30 13:07 | ED General ---
General Chief Complaint: -Female Stated Complaint: UTI;DEMENTIA Nursing Triage Note: TO ED PER EMS [facility] ACCORDING TO STAFF SHE WAS DX WITH UTI YESTERDAY WAS TO START ON IM ANTIBIOTIC UNABALE TO GIVE PER STAFF BECAUSE PATIENT COMBATIVE. ALSO WAS HER ADMITTED TO [facility] FOR PAST 2 WEEKS HAS BEEN YELLING AT NIGHT. . Nursing Sepsis Screen: No Definite Risk Source of Information: EMS Exam Limitations: Other (PT WITH DEMENTIA) History of Present Illness Date Seen by Provider: Oct 30, 2017 Time Seen by Provider: 11:39 Initial Comments PT ARRIVES VIA EMS FROM [facility] PT HAS DEMENTIA AND HAS HAD INCREASED AGITATION AND COMBATIVENESS FOR THE LAST 2 WEEKS--YELLING AT NIGHT, ETC. WAS DX WITH UTI YESTERDAY AND IM ANTIBIOTIC WAS ORDERED--WAS SUPPOSED TO START LAST PM, BUT PT FOUGHT STAFF LAST PM AND AGAIN THIS AM, SO DID NOT GIVE IT STAFF GAVE PT HER ROUTINE SCHEDULED ATIVAN THIS AM AT 1050 AND NOW PT IS CALM, BUT THEY DID NOT GO AHEAD AND GIVE HER THE MEDICATION, BUT SENT HER HERE INSTEAD SHORTLY AFTER ARRIVAL, PARLIAMENTARY ARCHIVIST FROM [facility] IS HERE AND REPORTEDLY THEY HAVE CONTACTED [facility] AND A SCREENER IS SUPPOSED TO COME HERE TO DO AN EVALUATION, DUE TO PT'S UNCOOPERATIVENESS. Allergies and Home Medications Allergies Coded Allergies: diphenhydramine HCl (Unverified Allergy, Unknown, 04/28/11) Home Medications Acetaminophen 325 Mg Tablet, 650 MG PO Q4H PRN for MILD PAIN/ TEMP, (Reported) Aspirin 81 Mg Tablet.dr, 81 MG PO DAILY, (Reported) Calcium Carbonate/Vitamin D3 1 Each Tablet, 1 TAB PO DAILY, (Reported) Carvedilol 12.5 Mg Tablet, 12.5 MG PO DAILY, (Reported) Citalopram Hydrobromide 20 Mg Tablet, 20 MG PO DAILY, (Reported) Dextran 70/Hypromellose 1 Each Droperette, 2 DROPS OU Q4H PRN for ITCHING, ( Reported) Diphenoxylate HCl/Atropine 1 Each Tablet, 1 TAB PO Q8H PRN for DIARRHEA, ( Reported) Donepezil HCl 10 Mg Tablet, 10 MG PO HS, (Reported) Famotidine 20 Mg Tablet, 20 MG PO DAILY, (Reported) Ferrous Sulfate 325 Mg Tablet, 325 MG PO DAILY, (Reported) Hydrocodone Bit/Acetaminophen 1 Each Tablet, 1 TAB PO HS PRN for PAIN-MODERATE, (Reported) Hydrocortisone/Pramoxine 28.4 Gm Cream.appl, TOP Q3H PRN for ITCHING, (Reported) Insulin Glargine,Hum.rec.anlog 100 Unit/1 Ml Vial, 40 UNITS SQ HS, (Reported) Insulin Lispro 100 Unit/1 Ml Vial, SQ QID, (Reported) 60-150= 0 UNITS 151-200=4 UNITS 201-250=6 UNITS 251-300=8 UNITS 301-350= 10 UNITS 351-400=12 UNITS <[address] AND START HYPOGLYCEMIC PROTOCOL >250 FOR [address] FOR ORDERS Lorazepam 0.5 Mg Tablet, 0.5 MG PO DAILY, (Reported) Mag Hydrox/Al Hydrox/Simeth 360 Ml Oral.susp, 30 ML PO Q4H PRN for INDIGESTION, (Reported) Magnesium Hydroxide 400 Mg/5 Ml Oral.susp, 30 ML PO DAILY PRN for CONSTIPATION- 7TH LINE, (Reported) Nystatin 15 Gm Cream..g., TOP TID, (Reported) APPLY TO BUTTOCK Polymyxin B Sulf/Trimethoprim 10 Ml Drops, 1 DROP OU BID, (Reported) Simvastatin 10 Mg Tablet, 10 MG PO HS, (Reported) Skin Cleanser 444 Gm Cleanser, OD BID, (Reported) WASH RIGHT EYE LID Zinc Oxide 10 Gm Oint.pack, TP BID PRN for RASH, (Reported) Constitutional: other (UNABLE TO OBTAIN FROM PT) Past Yhzwwwj-Rnmile-Ccnhzz Hx Patient Social History Alcohol Use: Denies Use Recreational Drug Use: No Smoking Status: Former Smoker Type Used: Cigarettes Former Smoker, Quit: February 20, 2016 Recent Foreign Travel: No Contact w/Someone Who Travel: No Recent Infectious Disease Expo: No Recent Hopitalizations: Yes Immunizations Up To Date Tetanus Booster (TDap): Unknown PED Vaccines UTD: No Date of Pneumonia Vaccine: Jun 24, 2016 Seasonal Allergies Seasonal Allergies: No Surgeries History of Surgeries: Yes (BOWEL OBSTRUCTIONS) Surgeries: Abdominal, Bowel Surgery, Coronary Stent, Gallbladder, Hysterectomy , Orthopedic Respiratory History of Respiratory Disorde: Yes Respiratory Disorders: COPD Currently Using CPAP: No Currently Using BIPAP: No Cardiovascular History of Cardiac Disorders: Yes Cardiac Disorders: Hypertension Neurological History of Neurological Disord: Yes (alzheimers) Neurological Disorders: Dementia Reproductive System Hx Reproductive Disorders: No Sexually Transmitted Disease: No HIV/AIDS: No [employer] History: Menopausal Genitourinary History of Genitourinary Disor: Yes Genitourinary Disorders: Bladder Infection Gastrointestinal History of Gastrointestinal Di: Yes Gastrointestinal Disorders: Gastroesophageal Reflux Musculoskeletal History of Musculoskeletal Dis: Yes (PT IS NON-AMBULATORY) Musculoskeletal Disorders: Arthritis, Gout Endocrine History of Endocrine Disorders: Yes (OBESITY) Endocrine Disorders: Diabetes, Non-Insulin dep HEENT History of HEENT Disorders: No Cancer History of Cancer: No Psychosocial History of Psychiatric Problem: Yes Behavioral Health Disorders: Anxiety, Depression Integumentary History of Skin or Integumenta: Yes (DECUBITUS ULCERS ON BUTTOCKS) Blood Transfusions History of Blood Disorders: Yes (anemia) Adverse Reaction to a Blood Tr: No Family Medical History Family Medial History: Patient reports no known family medical history. Physical Exam Vital Signs Vital Signs - First Documented 10/30/17 11:40 Temp 98.2 Pulse 82 Resp 18 B/P (MAP) 169/77 (107) Pulse Ox 98 O2 Delivery Room Air Capillary Refill : Less Than 3 Seconds General Appearance: No Apparent Distress, Obese, Other (PT IS CALM AND IS NOT COMBATIVE, RN ABLE TO START IV WITHOUT PT BEING COMBATIVE, BUT PT STATES IT HURTS LITERALLY EVERYWHERE SHE IS TOUCHED. ) HEENT: PERRL/EOMI Respiratory: Normal Breath Sounds, No Accessory Muscle Use, No Respiratory Distress Cardiovascular: Regular Rate, Rhythm, No Murmur Gastrointestinal: Abnormal Bowel Sounds (HYPERACTIVE), Distended, Other ( ABDOMEN FIRM, DISTENDED. STATES IT HURTS WHEN PALPATED ( ALSO STATES IT HURTS ANYWHERE SHE IS PALPATED ) ) Extremity: Normal Capillary Refill Neurologic/Psychiatric: Alert, No Motor/Sensory Deficits (GROSSLY INTACT), Other (SOMEWHAT CONFUSED, BUT ABLE TO GIVE SOME PAST MEDICAL HISTORY. PT IS ORIENTED TO PERSON AND PLACE. NO AGITATION, COMBATIVENESS, VIOLENT BEHAVIOR AT ANY TIME DURING ER STAY. ) Skin: Normal Color, Warm/Dry Focused Exam Evaluation Lactate Level Laboratory Tests 10/30/17 12:18: Lactic Acid Level 2.77*H Lactic Acid Level Progress/Results/Core Measures Suspected Sepsis Recent Fever Within 48 Hours: No Infection Criteria Present: None New/Unexplained Altered Menta: No Sepsis Screen: No Definite Risk Sepsis Diagnosis: SIRS Temperature:98.2 Pulse: 82 Respiratory Rate: 18 Laboratory Tests 10/30/17 12:01: White Blood Count 5.3 Blood Pressure 169 /77 Mean: 107 Laboratory Tests 10/30/17 12:18: Lactic Acid Level 2.77*H Laboratory Tests 10/30/17 12:01: Creatinine 0.94, Platelet Count 125L, Total Bilirubin 0.6 Results/Orders Lab Results Laboratory Tests Test 10/30/17 12:01 10/30/17 12:18 Range/Units White Blood Count 5.3 4.3-11.0 10^3/uL Red Blood Count 3.65 L 4.35-5.85 10^6/uL Hemoglobin 11.9 11.5-16.0 G/DL Hematocrit 35 35-52 % Mean Corpuscular Volume 96 80-99 FL Mean Corpuscular Hemoglobin 33 25-34 PG Mean Corpuscular Hemoglobin Concent 34 32-36 G/DL Red Cell Distribution Width 12.8 10.0-14.5 % Platelet Count 125 L 130-400 10^3/uL Mean Platelet Volume 10.3 7.4-10.4 FL Neutrophils (%) (Auto) 72 42-75 % Lymphocytes (%) (Auto) 19 12-44 % Monocytes (%) (Auto) 6 0-12 % Eosinophils (%) (Auto) 3 0-10 % Basophils (%) (Auto) 0 0-10 % Neutrophils # (Auto) 3.8 1.8-7.8 X 10^3 Lymphocytes # (Auto) 1.0 1.0-4.0 X 10^3 Monocytes # (Auto) 0.3 0.0-1.0 X 10^3 Eosinophils # (Auto) 0.2 0.0-0.3 10^3/uL Basophils # (Auto) 0.0 0.0-0.1 10^3/uL Sodium Level 135 135-145 MMOL/L Potassium Level 4.3 3.6-5.0 MMOL/L Chloride Level 104 98-107 MMOL/L Carbon Dioxide Level 21 21-32 MMOL/L Anion Gap 10 5-14 MMOL/L Blood Urea Nitrogen 24 H 7-18 MG/DL Creatinine 0.94 0.60-1.30 MG/DL Estimat Glomerular Filtration Rate 57 BUN/Creatinine Ratio 26 Glucose Level 285 H 70-105 MG/DL Calcium Level 8.8 8.5-10.1 MG/DL Magnesium Level 1.6 L 1.8-2.4 MG/DL Total Bilirubin 0.6 0.1-1.0 MG/DL Aspartate Amino Transf (AST/SGOT) 19 5-34 U/L Alanine Aminotransferase (ALT/SGPT) 16 0-55 U/L Alkaline Phosphatase 77 40-136 U/L Total Protein 6.2 L 6.4-8.2 GM/DL Albumin 3.2 3.2-4.5 GM/DL Lactic Acid Level 2.77 *H 0.50-2.00 MMOL/L My Orders Orders - PRAFUL KYLE DO Saline Lock/Iv-Start (10/30/17 11:43) Monitor-Rhythm Ecg Trace Only (10/30/17 11:43) Cbc With Automated Diff (10/30/17 11:43) Comprehensive Metabolic Panel (10/30/17 11:43) Lactic Acid Analyzer (10/30/17 11:43) Magnesium (10/30/17 11:43) Blood Culture (10/30/17 11:43) Chest 1 View, Ap/Pa Only (10/30/17 11:43) Ct Abdomen/Pelvis Wo (10/30/17 12:42) Ceftriaxone Injection (Rocephin Injectio (10/30/17 13:00) Ns Iv 1000 Ml (Sodium Chloride 0.9%) (10/30/17 12:49) Medications Given in ED Current Medications Medications Dose Ordered Sig/Luis A Route Start Time Stop Time Status Last Admin Dose Admin Ceftriaxone Sodium 1000 mg/ Sodium Chloride 50 ml @ 100 mls/hr ONCE ONCE IV 10/30/17 13:00 10/30/17 13:29 DC 10/30/17 13:30 100 MLS/HR Sodium Chloride 1,000 ml @ 0 mls/hr Q0M ONCE IV 10/30/17 12:49 10/30/17 12:50 DC 10/30/17 13:30 1,000 MLS/HR Vital Signs/I&O Vital Sign - Last 12Hours 10/30/17 10/30/17 11:40 14:37 Temp 98.2 Pulse 82 64 Resp 18 18 B/P (MAP) 169/77 (107) Pulse Ox 98 96 O2 Delivery Room Air Capillary Refill : Less Than 3 Seconds Blood Pressure Mean: 107 Progress Note : Progress Note UNEVENTFUL ER STAY PT WAS NOT COMBATIVE OR AGITATED DURING ER STAY, AND RESTED QUIETLY FOR MOST OF ER STAY Diagnostic Imaging Comments CXR--NO ACUTE PROCESS CT ABDOMEN/PELVIS--MULTIPLE CHRONIC CHANGES. VENTRAL HERNIA WITH POSSIBLE INCARCERATION BUT NO STRANGULATION OR OBSTRUCTION. PER RADIOLOGIST REPORTS @ 1350 Reviewed: Reviewed by Me Departure Communication (PCP) 1351--SPOKE WITH DR. HIDALGO. HE IS COMFORTABLE WITH PT GOING BACK TO [facility]. HE STATES THAT PT DOES BECOME MORE AGITATED AND CONFUSED WHEN SHE HAS UTI' S WHICH IS A FAIRLY FREQUENT PROBLEM FOR PT. PT DOES NOT MEET CRITERIA FOR ADMIT TO HOSPITAL. HER BEHAVIOR CHANGES ARE LIKELY DUE TO HER UTI AND DOES NOT SEE NEED FOR GERIATRIC PSYCH EVALUATION AT THIS TIME. HE ADVISES TO SEND PT BACK TO [facility], CONTINUE PRIOR ORDERS FOR ROCEPHIN IM DAILY AND WILL RECHECK URINE IN 5 DAYS. WILL ALSO ADD A PRN DOSE OF ATIVAN PRN AGITATION. HE WILL DISCUSS THE CT FINDINGS OF INCARCERATED HERNIA WITH PT'S DAUGHTER /DPOA , AND DISCUSS HOW SHE WOULD LIKE TO PROCEED WITH FURTHER EVALUATION/ TREATMENT- SURGICAL OPTIONS. Impression Impression: Primary Impression: UTI (urinary tract infection) Additional Impressions: Combative behavior Dementia Ventral hernia Disposition: 03 XFER SNF Condition: Stable Departure-Patient Inst. Referrals: EFRAIN HIDALGO MD (PCP/Family) Primary Care Physician Patient Instructions: Urinary Tract Infection, Adult (DC) Add. Discharge Instructions: CONTINUE CURRENT MEDICATIONS PRESCRIBED MAY GIVE ADDITIONAL DOSE OF ATIVAN EVERY 2 HOURS PRN AGITATION GIVE ROCEPHIN ORIGINALLY PRESCRIBED RECHECK UA WITH CULTURE IN [address] HIDALGO FOR FURTHER CARE All discharge instructions reviewed with patient and/or family. Voiced understanding. PRAFUL KYLE DO Oct 30, 2017 13:07
--- NOTE | 2017-10-30 13:23 | Diagnostic Imaging Report ---
INDICATION: Altered mental status. PA chest obtained at 1:09 p.m. FINDINGS: Heart is borderline in size. Aorta is tortuous. The lungs are clear. There is no pneumothorax or pleural fluid. IMPRESSION: Borderline heart size with tortuous aorta. No acute process in the chest. Dictated by: Dictated on workstation # [id number]
--- NOTE | 2017-10-30 13:47 | Diagnostic Imaging Report ---
PROCEDURE: CT abdomen and pelvis without contrast. TECHNIQUE: Multiple contiguous axial images were obtained through the abdomen and pelvis without the use of intravenous contrast. INDICATION: Urinary tract infection, dementia. COMPARISON: There are no prior studies available for comparison. FINDINGS: There is a sizable roughly 15 cm defect in the upper anterior abdominal wall. This defect measures 10 x 15 cm in maximum longitudinal and transverse dimensions. A portion of the transverse colon has extended through this defect. This portion of the colon may be incarcerated but there is no sign of obstruction of the bowel. There is also generalized thinning of the anterior abdominal wall inferior to the umbilicus. There are segments of large and small bowel extending into the anterior aspect of the lower abdomen and pelvis but there is no incarceration or obstruction of these segments of bowel either. There does appear to be at least a moderate amount of fluid and fecal material throughout the colon. There may be a few diverticula scattered throughout the sigmoid colon but there is no sign of acute diverticulitis. There is no pelvic mass or free fluid collection noted. The urinary bladder is only partially filled and consequently difficult to assess. The uterus is surgically absent. The appendix is not seen to be thickened. There are no indirect signs of acute appendicitis. The liver, spleen, pancreas, adrenals, kidneys, aorta and inferior vena cava are unremarkable for an acute abnormality. The gallbladder is also surgically absent. The aorta is not aneurysmally dilated but there is atherosclerotic disease throughout the aorta. Furthermore there is heavy atherosclerotic plaque involving the origins of the common iliac arteries, the superior mesenteric artery, the celiac axis and the splenic artery. The stomach is partially filled with fluid and consequently difficult to assess. The lung bases are clear. The bone windows show no evidence for a fracture or for a destructive lesion. There is severe degenerative disc and bony disease at L2-3. There is near-complete obliteration of the disc space at this level and there is marked sclerosis of the opposing surfaces of L2 and L3. There also appears to be spinal stenosis at this level. IMPRESSION: 1. There is no acute abnormality of the abdomen or pelvis. 2. There is a large defect in the upper anterior abdominal wall. A segment of the transverse colon has extended through this defect and this portion colon may be incarcerated. There is no obstruction of the bowel however. 3. There is also thinning of the anterior abdominal wall in the lower abdomen and upper pelvis. There are segments of large and small bowel in this area as well but there is no incarceration or obstruction of the bowel. 4. There is diverticulosis of the sigmoid colon with evidence for acute diverticulitis. 5. The gallbladder and uterus are surgically absent. 6. The aorta is not abnormally dilated but there is severe atherosclerotic disease involving the aorta and its branches. 7. There is severe degenerative disc and bony disease at L2-3. Dictated by: Dictated on workstation # [id number]
[2017-10-30 14:37] VITALS: BP 143/74
== END 2017-10-30 14:35 ==
LOC: EDUNIT# 11:40 → ER 11:41
DX: N39.0 Urinary tract infection, site not specified (principal); F91.8 Other conduct disorders; F03.90 Unspecified dementia, unspecified severity, without behavioral disturbance, psychotic disturbance, mood disturbance, and anxiety; F43.9 Reaction to severe stress, unspecified; J44.9 Chronic obstructive pulmonary disease, unspecified; G30.9 Alzheimer's disease, unspecified; I10 Essential (primary) hypertension; K21.9 Gastro-esophageal reflux disease without esophagitis; M10.9 Gout, unspecified; F41.9 Anxiety disorder, unspecified; F32.9 Major depressive disorder, single episode, unspecified; E66.9 Obesity, unspecified; E11.9 Type 2 diabetes mellitus without complications; Z87.448 Personal history of other diseases of urinary system; Z88.8 Allergy status to other drugs, medicaments and biological substances; Z79.82 Long term (current) use of aspirin; Z79.4 Long term (current) use of insulin; Z68.37 Body mass index [BMI] 37.0-37.9, adult; Z87.891 Personal history of nicotine dependence; Z95.5 Presence of coronary angioplasty implant and graft; Z90.710 Acquired absence of both cervix and uterus; Z87.19 Personal history of other diseases of the digestive system
CPT/HCPCS: 36415; 71045; 74176; 80053; 83605; 83735; 85025; 87040; 96361; 96365

== ENCOUNTER 2018-04-29 12:02 | Emergency (ER) | payer MEDICARE, MEDICAID ==
[~2018-04-29] VITALS: Ht 165.1 cm; Wt 99.8 kg
--- NOTE | 2018-04-29 12:09 | ED General ---
General Stated Complaint: AMS//AGRESSION Source of Information: EMS Exam Limitations: No Limitations History of Present Illness Date Seen by Provider: Apr 29, 2018 Time Seen by Provider: 12:07 Initial Comments To ER per EMS from [facility] with reports of agitation. Reportedly she "choked" one of the staff members at [facility] and has been aggressive. They also told EMS that she's been aggressive like this every day since she's been there and but today seems worse Timing/Duration: Other Severity: Moderate Allergies and Home Medications Allergies Coded Allergies: diphenhydramine HCl (Unverified Allergy, Unknown, 04/28/11) Home Medications Acetaminophen 325 Mg Tablet, 650 MG PO Q4H PRN for MILD PAIN/ TEMP, (Reported) Aspirin 81 Mg Tablet.dr, 81 MG PO DAILY, (Reported) Calcium Carbonate/Vitamin D3 1 Each Tablet, 1 TAB PO DAILY, (Reported) Carvedilol 12.5 Mg Tablet, 12.5 MG PO DAILY, (Reported) Cefuroxime Axetil 500 Mg Tablet, 500 MG PO BID Prescribed by: PHILIP ARELLANO on 04/29/18 1341 Citalopram Hydrobromide 20 Mg Tablet, 20 MG PO DAILY, (Reported) Dextran 70/Hypromellose 1 Each Droperette, 2 DROPS OU Q4H PRN for ITCHING, ( Reported) Diphenoxylate HCl/Atropine 1 Each Tablet, 1 TAB PO Q8H PRN for DIARRHEA, ( Reported) Donepezil HCl 10 Mg Tablet, 10 MG PO HS, (Reported) Famotidine 20 Mg Tablet, 20 MG PO DAILY, (Reported) Ferrous Sulfate 325 Mg Tablet, 325 MG PO DAILY, (Reported) Hydrocodone Bit/Acetaminophen 1 Each Tablet, 1 TAB PO HS PRN for PAIN-MODERATE, (Reported) Hydrocortisone/Pramoxine 28.4 Gm Cream.appl, TOP Q3H PRN for ITCHING, (Reported) Insulin Glargine,Hum.rec.anlog 100 Unit/1 Ml Vial, 40 UNITS SQ HS, (Reported) Insulin Lispro 100 Unit/1 Ml Vial, SQ QID, (Reported) 60-150= 0 UNITS 151-200=4 UNITS 201-250=6 UNITS 251-300=8 UNITS 301-350= 10 UNITS 351-400=12 UNITS <60 CALL AND START HYPOGLYCEMIC PROTOCOL >250 FOR [address] FOR ORDERS Lorazepam 0.5 Mg Tablet, 0.5 MG PO DAILY, (Reported) Mag Hydrox/Al Hydrox/Simeth 360 Ml Oral.susp, 30 ML PO Q4H PRN for INDIGESTION, (Reported) Magnesium Hydroxide 400 Mg/5 Ml Oral.susp, 30 ML PO DAILY PRN for CONSTIPATION- 7TH LINE, (Reported) Nystatin 15 Gm Cream..g., TOP TID, (Reported) APPLY TO BUTTOCK Polymyxin B Sulf/Trimethoprim 10 Ml Drops, 1 DROP OU BID, (Reported) Simvastatin 10 Mg Tablet, 10 MG PO HS, (Reported) Skin Cleanser 444 Gm Cleanser, OD BID, (Reported) WASH RIGHT EYE LID Zinc Oxide 10 Gm Oint.pack, TP BID PRN for RASH, (Reported) Patient Home Medication List Home Medication List Reviewed: Yes Review of Systems Constitutional: see HPI EENTM: see HPI Respiratory: no symptoms reported Cardiovascular: no symptoms reported Genitourinary: no symptoms reported Musculoskeletal: see HPI Skin: see HPI Psychiatric/Neurological: See HPI (Is IS White) Physical Exam Vital Signs Vital Signs - First Documented 04/29/18 12:05 Temp 98.0 Pulse 98 Resp 16 B/P (MAP) 138/61 (86) Pulse Ox 98 Capillary Refill : Height, Weight, BMI Height: '" Weight: lbs. oz. kg; BMI Method: General Appearance: No Apparent Distress, WD/WN, Other (agitated, she believes the year is 1988. She knows she is at the hospital.) Eyes: Bilateral Eye Normal Inspection, Bilateral Eye PERRL, Bilateral Eye EOMI HEENT: PERRL/EOMI, TMs Normal Neck: Full Range of Motion, Normal Inspection Respiratory: No Accessory Muscle Use, No Respiratory Distress Cardiovascular: Regular Rate, Rhythm, Normal Peripheral Pulses Gastrointestinal: Normal Bowel Sounds, Non Tender, Soft Extremity: Other (there is some mild erythema and scant discharge to the medial aspect of the left great toe nail and what appears to be small subungual hematoma with bluish discoloration of the toenail.) Neurologic/Psychiatric: Alert Skin: Normal Color, Warm/Dry Progress/Results/Core Measures Suspected Sepsis SIRS Temperature: Pulse: Respiratory Rate: Laboratory Tests 04/29/18 12:37: White Blood Count 4.4 Blood Pressure / Mean: Laboratory Tests 04/29/18 12:37: Creatinine 0.93, Platelet Count 134, Total Bilirubin 0.4 Results/Orders Lab Results Laboratory Tests Test 04/29/18 12:37 04/29/18 13:07 Range/Units White Blood Count 4.4 4.3-11.0 10^3/uL Red Blood Count 3.61 L 4.35-5.85 10^6/uL Hemoglobin 11.9 11.5-16.0 G/DL Hematocrit 36 35-52 % Mean Corpuscular Volume 98 80-99 FL Mean Corpuscular Hemoglobin 33 25-34 PG Mean Corpuscular Hemoglobin Concent 34 32-36 G/DL Red Cell Distribution Width 12.7 10.0-14.5 % Platelet Count 134 130-400 10^3/uL Mean Platelet Volume 9.4 7.4-10.4 FL Neutrophils (%) (Auto) 59 42-75 % Lymphocytes (%) (Auto) 27 12-44 % Monocytes (%) (Auto) 9 0-12 % Eosinophils (%) (Auto) 5 0-10 % Basophils (%) (Auto) 0 0-10 % Neutrophils # (Auto) 2.6 1.8-7.8 X 10^3 Lymphocytes # (Auto) 1.2 1.0-4.0 X 10^3 Monocytes # (Auto) 0.4 0.0-1.0 X 10^3 Eosinophils # (Auto) 0.2 0.0-0.3 10^3/uL Basophils # (Auto) 0.0 0.0-0.1 10^3/uL Sodium Level 134 L 135-145 MMOL/L Potassium Level 3.9 3.6-5.0 MMOL/L Chloride Level 106 98-107 MMOL/L Carbon Dioxide Level 26 21-32 MMOL/L Anion Gap 2 L 5-14 MMOL/L Blood Urea Nitrogen 16 7-18 MG/DL Creatinine 0.93 0.60-1.30 MG/DL Estimat Glomerular Filtration Rate 58 BUN/Creatinine Ratio 17 Glucose Level 150 H 70-105 MG/DL Calcium Level 9.0 8.5-10.1 MG/DL Total Bilirubin 0.4 0.1-1.0 MG/DL Aspartate Amino Transf (AST/SGOT) 18 5-34 U/L Alanine Aminotransferase (ALT/SGPT) 13 0-55 U/L Alkaline Phosphatase 60 40-136 U/L Total Protein 5.8 L 6.4-8.2 GM/DL Albumin 3.1 L 3.2-4.5 GM/DL Urine Color YELLOW Urine Clarity VERY CLOUDY H Urine pH 5 5-9 Urine Specific [place] 1.025 H 1.016-1.022 Urine Protein 3+ H NEGATIVE Urine Glucose (UA) NEGATIVE NEGATIVE Urine Ketones NEGATIVE NEGATIVE Urine Nitrite POSITIVE H NEGATIVE Urine Bilirubin 1+ H NEGATIVE Urine Urobilinogen NORMAL NORMAL MG/DL Urine Leukocyte Esterase 3+ H NEGATIVE Urine RBC (Auto) 3+ H NEGATIVE Urine RBC 0-2 /HPF Urine WBC 10-25 H /HPF Urine Squamous Epithelial Cells 5-10 /HPF Urine Crystals NONE /LPF Urine Bacteria LARGE H /HPF Urine Casts NONE /LPF Urine Mucus NEGATIVE /LPF Urine Culture Indicated YES My Orders Orders - PHILIP ARELLANO APRN Cbc With Automated Diff (04/29/18 12:06) Comprehensive Metabolic Panel (04/29/18 12:06) Ua Culture If Indicated (04/29/18 12:06) Alprazolam Tablet (Xanax Tablet) (04/29/18 12:15) Alprazolam Tablet (Xanax Tablet) (04/29/18 12:15) Cho 60g/M 3snack (16-2000 Paramjit) (04/29/18 Lunch) Urine Culture (04/29/18 13:07) Ceftriaxone Injection (Rocephin Injectio (04/29/18 14:45) Lidocaine 1% Inj 20 Ml (Xylocaine 1% Inj (04/29/18 14:45) Vital Signs/I&O 04/29/18 12:05 Temp 98.0 Pulse 98 Resp 16 B/P (MAP) 138/61 (86) Pulse Ox 98 Capillary Refill : Departure Communication (Admissions) 1318- catheter urine sample obtained. Results pending. Patient states "you come any closer to me and I will your goddamn hand off!", screaming other obscenities in her room. Xanax 0.5 mg given. [facility] notified of need for consult. She does attempt to bite staff if we get close to her. 1442-Romulo Deshpande from [facility] has evaluated the patient is not feel that she is an appropriate candidate for their program at this time the agitation seems to be more a result of delirium from her urinary tract infection than from her dementia. We will do Rocephin intramuscular then discharged back to shelter on oral antibiotics. Impression Primary Impression: Delirium Additional Impressions: Agitation UTI (urinary tract infection) Disposition: SHT-TRM HOSP Condition: Stable Departure-Patient Inst. Decision time for Depature: 14:39 Patient Instructions: Delirium (Confusion) (DC) Add. Discharge Instructions: 1. Return to ER for any concerns 2. Antibiotics as directed 3. Scripts Cefuroxime Axetil (Cefuroxime) 500 Mg Tablet 500 MG PO BID, #10 TAB Prov: PHILIP ARELLANO APRN 04/29/18 PHILIP ARELLANO APRN Apr 29, 2018 12:09
[2018-04-29] MEDS ORDERED: ALPRAZolam 0.25 MG (XANAX) TAB PO ONE (12:15)
[2018-04-29] MEDS ORDERED: ALPRAZolam 0.5 MG (XANAX) TAB PO SCH (12:15)
[2018-04-29 12:45] LABS: BASOPHILS % (AUTO) 0 % (0-10); EOSINOPHILS # (AUTO) 0.2 10^3/uL (0.0-0.3); EOSINOPHILS % (AUTO) 5 % (0-10); HEMATOCRIT 36 % (35-52); HEMOGLOBIN 11.9 G/DL (11.5-16.0); LYMPHOCYTES # (AUTO) 1.2 X 10^3 (1.0-4.0); LYMPHOCYTES % (AUTO) 27 % (12-44); MEAN CORPUSCULAR HEMOGLOBIN 33 PG (25-34); MEAN CORPUSCULAR HGB CONC 34 G/DL (32-36); MEAN CORPUSCULAR VOLUME 98 FL (80-99); MEAN PLATELET VOLUME 9.4 FL (7.4-10.4); MONOCYTES # (AUTO) 0.4 X 10^3 (0.0-1.0); MONOCYTES % (AUTO) 9 % (0-12); NEUTROPHILS # (AUTO) 2.6 X 10^3 (1.8-7.8); NEUTROPHILS % (AUTO) 59 % (42-75); PLATELET COUNT 134 10^3/uL (130-400); RED BLOOD COUNT 3.61 10^6/uL (4.35-5.85); RED CELL DISTRIBUTION WIDTH 12.7 % (10.0-14.5); WHITE BLOOD COUNT 4.4 10^3/uL (4.3-11.0)
[2018-04-29 13:17] LABS: CLARITY,URINE VERY CLOUDY; COLOR,URINE YELLOW; GLUCOSE, URINE (UA) NEGATIVE (NEGATIVE); KETONES,URINE NEGATIVE (NEGATIVE); LEUKOCYTE ESTERASE ,URINE 3+ (NEGATIVE); NITRITE,URINE POSITIVE (NEGATIVE); PH,URINE 5 (5-9); PROTEIN,URINE 3+ (NEGATIVE); UROBILINOGEN,URINE NORMAL (NORMAL)
[2018-04-29 13:22] LABS: ALBUMIN 3.1 GM/DL (3.2-4.5); BILIRUBIN,TOTAL 0.4 MG/DL (0.1-1.0); CREATININE SERUM 0.93 MG/DL (0.60-1.30); POTASSIUM 3.9 MMOL/L (3.6-5.0); TOTAL PROTEIN 5.8 GM/DL (6.4-8.2)
[2018-04-29 13:34] LABS: BACTERIA,URINE LARGE /HPF; BILIRUBIN,URINE 1+ (NEGATIVE); RBC,URINE 0-2 /HPF
[2018-04-29] MEDS ORDERED: CEFU500T63 PO (13:41)
[2018-04-29] MEDS ORDERED: LIDOCAINE 1% INJ 20 ML 20 ML VIAL INJ ONE (14:45)
[2018-04-29] MEDS ORDERED: cefTRIAXone 1 GM (ROCEPHIN) VIAL IM ONE (14:45)
[2018-04-29 15:45] VITALS: BP 135/80
== END 2018-04-29 15:45 | disposition short-term general hospital (02) ==
LOC: EDUNIT# 12:02 → ER 12:03
DX: R41.0 Disorientation, unspecified (principal); R45.1 Restlessness and agitation; N39.0 Urinary tract infection, site not specified; Z88.8 Allergy status to other drugs, medicaments and biological substances; Z79.82 Long term (current) use of aspirin; Z79.4 Long term (current) use of insulin; Z79.02 Long term (current) use of antithrombotics/antiplatelets
CPT/HCPCS: 36415; 51701; 80053; 81000; 85025; 87077; 87088; 87186; 96372; 99284

== ENCOUNTER 2018-07-15 07:38 | Inpatient (IN) | payer MEDICARE, MEDICAID ==
[~2018-07-15] VITALS: Ht 165.1 cm; Wt 99.9 kg
[~2018-07-15 07:38] MED LIST changes: +CEFU500T63 PO
[2018-07-15] MEDS ORDERED: NS IV 1000 ML 1,000 ML IV ONE (07:55)
--- NOTE | 2018-07-15 08:06 | ED General ---
General Stated Complaint: RECTAL BLEEDING Source of Information: Patient Exam Limitations: No Limitations History of Present Illness Date Seen by Provider: Jul 15, 2018 Time Seen by Provider: 07:42 Initial Comments Here by EMS from skilled nursing with report of rectal bleeding. No report of fevers or other problems. Came from via [facility] and had recently been readmitted thereafter stay at [facility] in [place]. Reportedly passing several clots this morning with stool. Patient does not talk much and always answer simple questions. Denies pain. Timing/Duration: 1-3 Hours Severity: Moderate Associated Systoms: Denies Symptoms Allergies and Home Medications Allergies Coded Allergies: diphenhydramine HCl (Unverified Allergy, Unknown, 04/28/11) Home Medications Acetaminophen 325 Mg Tablet, 650 MG PO Q4H PRN for MILD PAIN/ TEMP, (Reported) Aspirin 81 Mg Tablet.dr, 81 MG PO DAILY, (Reported) Calcium Carbonate/Vitamin D3 1 Each Tablet, 1 TAB PO DAILY, (Reported) Carvedilol 12.5 Mg Tablet, 12.5 MG PO DAILY, (Reported) Cefuroxime Axetil 500 Mg Tablet, 500 MG PO BID Prescribed by: PHILIP ARELLANO on 04/29/18 1341 Citalopram Hydrobromide 20 Mg Tablet, 20 MG PO DAILY, (Reported) Dextran 70/Hypromellose 1 Each Droperette, 2 DROPS OU Q4H PRN for ITCHING, ( Reported) Diphenoxylate HCl/Atropine 1 Each Tablet, 1 TAB PO Q8H PRN for DIARRHEA, ( Reported) Donepezil HCl 10 Mg Tablet, 10 MG PO HS, (Reported) Famotidine 20 Mg Tablet, 20 MG PO DAILY, (Reported) Ferrous Sulfate 325 Mg Tablet, 325 MG PO DAILY, (Reported) Hydrocodone Bit/Acetaminophen 1 Each Tablet, 1 TAB PO HS PRN for PAIN-MODERATE, (Reported) Hydrocortisone/Pramoxine 28.4 Gm Cream.appl, TOP Q3H PRN for ITCHING, (Reported) Insulin Glargine,Hum.rec.anlog 100 Unit/1 Ml Vial, 40 UNITS SQ HS, (Reported) Insulin Lispro 100 Unit/1 Ml Vial, SQ QID, (Reported) 60-150= 0 UNITS 151-200=4 UNITS 201-250=6 UNITS 251-300=8 UNITS 301-350= 10 UNITS 351-400=12 UNITS <[address] AND START HYPOGLYCEMIC PROTOCOL >250 FOR [address] FOR ORDERS Lorazepam 0.5 Mg Tablet, 0.5 MG PO DAILY, (Reported) Mag Hydrox/Al Hydrox/Simeth 360 Ml Oral.susp, 30 ML PO Q4H PRN for INDIGESTION, (Reported) Magnesium Hydroxide 400 Mg/5 Ml Oral.susp, 30 ML PO DAILY PRN for CONSTIPATION- 7TH LINE, (Reported) Nystatin 15 Gm Cream..g., TOP TID, (Reported) APPLY TO BUTTOCK Polymyxin B Sulf/Trimethoprim 10 Ml Drops, 1 DROP OU BID, (Reported) Simvastatin 10 Mg Tablet, 10 MG PO HS, (Reported) Skin Cleanser 444 Gm Cleanser, OD BID, (Reported) WASH RIGHT EYE LID Zinc Oxide 10 Gm Oint.pack, TP BID PRN for RASH, (Reported) Patient Home Medication List Home Medication List Reviewed: Yes Review of Systems Review of Systems Constitutional: see HPI, fever Gastrointestinal: other (rectal bleeding) Skin: lesions (buttocks) Unable to complete review of systems due to her underlying medical condition and mental status Past Grlwipz-Uujdxr-Rpvvju Hx Past Med/Social Hx: Reviewed Nursing Past Med/Soc Hx Patient Social History Alcohol Use: Denies Use Smoking Status: Former Smoker Type Used: Cigarettes Former Smoker, Quit: February 20, 2016 Recent Hopitalizations: Yes Immunizations Up To Date Tetanus Booster (TDap): Unknown PED Vaccines UTD: No Date of Pneumonia Vaccine: Jun 24, 2016 Seasonal Allergies Seasonal Allergies: No Past Medical History Surgeries: Yes (BOWEL OBSTRUCTIONS) Abdominal, Bowel Surgery, Coronary Stent, Gallbladder, Hysterectomy, Orthopedic Respiratory: Yes COPD Currently Using CPAP: No Currently Using BIPAP: No Cardiac: Yes Hypertension Neurological: Yes (alzheimers) Dementia 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 Physical Exam Vital Signs Vital Signs - First Documented 07/15/18 07:38 Temp 100.2 Pulse 81 Resp 20 B/P (MAP) 152/72 (98) Pulse Ox 96 O2 Delivery Room Air Capillary Refill : Height, Weight, BMI Height: 5'5.00" Weight: 220lbs. 0.0oz. 99.953382gh; 37.1 BMI Method:Estimated General Appearance: No Apparent Distress, WD/WN HEENT: PERRL/EOMI, Other (mouth and mucous membranes dry) Neck: Non Tender, Supple Respiratory: Lungs Clear, Normal Breath Sounds Cardiovascular: Regular Rate, Rhythm, No Murmur Gastrointestinal: Non Tender, Soft Rectal: Blood Streaked Stool, Hemorrhoids; No Mass Genital/Rectal: Other (purulent drainage vaginally. Has blood noted both in the perivaginal region and rectal region. Blood streak stool noted.) Back: Normal Inspection, No CVA Tenderness, No Vertebral Tenderness Extremity: Normal Range of Motion, Non Tender Neurologic/Psychiatric: Other (awake and answer simple questions) Skin: Normal Color, Warm/Dry, Other (6 x 6 cm area of erythema and mild skin breakdown noted in the region of the coccyx) Focused Exam Lactate Level 07/15/18 08:00: Lactic Acid Level 2.03*H Lactic Acid Level Laboratory Tests Test 07/15/18 08:00 Lactic Acid Level 2.03 MMOL/L (0.50-2.00) *H Progress/Results/Core Measures Suspected Sepsis SIRS Temperature: Pulse: Respiratory Rate: Laboratory Tests 07/15/18 08:00: White Blood Count 4.7 Blood Pressure / Mean: 07/15/18 08:00: Lactic Acid Level 2.03*H Laboratory Tests 07/15/18 08:00: Creatinine 0.85, INR Comment 1.2, Platelet Count 175, Total Bilirubin 0.4 Results/Orders Lab Results Laboratory Tests Test 07/15/18 08:00 Range/Units White Blood Count 4.7 4.3-11.0 10^3/uL Red Blood Count 3.40 L 4.35-5.85 10^6/uL Hemoglobin 11.1 L 11.5-16.0 G/DL Hematocrit 35 35-52 % Mean Corpuscular Volume 102 H 80-99 FL Mean Corpuscular Hemoglobin 33 25-34 PG Mean Corpuscular Hemoglobin Concent 32 32-36 G/DL Red Cell Distribution Width 13.1 10.0-14.5 % Platelet Count 175 130-400 10^3/uL Mean Platelet Volume 9.9 7.4-10.4 FL Neutrophils (%) (Auto) 62 42-75 % Lymphocytes (%) (Auto) 25 12-44 % Monocytes (%) (Auto) 11 0-12 % Eosinophils (%) (Auto) 3 0-10 % Basophils (%) (Auto) 0 0-10 % Neutrophils # (Auto) 2.9 1.8-7.8 X 10^3 Lymphocytes # (Auto) 1.2 1.0-4.0 X 10^3 Monocytes # (Auto) 0.5 0.0-1.0 X 10^3 Eosinophils # (Auto) 0.1 0.0-0.3 10^3/uL Basophils # (Auto) 0.0 0.0-0.1 10^3/uL Prothrombin Time 15.3 H 12.2-14.7 SEC INR Comment 1.2 0.8-1.4 Activated Partial Thromboplast Time 28 24-35 SEC Urine Color YELLOW Urine Clarity SLIGHTLY CLOUDY Urine pH 7 5-9 Urine Specific [place] 1.005 L 1.016-1.022 Urine Protein 2+ H NEGATIVE Urine Glucose (UA) NEGATIVE NEGATIVE Urine Ketones NEGATIVE NEGATIVE Urine Nitrite NEGATIVE NEGATIVE Urine Bilirubin NEGATIVE NEGATIVE Urine Urobilinogen NORMAL NORMAL MG/DL Urine Leukocyte Esterase 3+ H NEGATIVE Urine RBC (Auto) 2+ H NEGATIVE Urine RBC 0-2 /HPF Urine WBC >100 H /HPF Urine Squamous Epithelial Cells 2-5 /HPF Urine Crystals NONE /LPF Urine Bacteria TRACE /HPF Urine Casts NONE /LPF Urine Mucus NEGATIVE /LPF Urine Culture Indicated NO Sodium Level 144 135-145 MMOL/L Potassium Level 4.7 3.6-5.0 MMOL/L Chloride Level 108 H 98-107 MMOL/L Carbon Dioxide Level 25 21-32 MMOL/L Anion Gap 11 5-14 MMOL/L Blood Urea Nitrogen 20 H 7-18 MG/DL Creatinine 0.85 0.60-1.30 MG/DL Estimat Glomerular Filtration Rate > 60 BUN/Creatinine Ratio 24 Glucose Level 167 H 70-105 MG/DL Lactic Acid Level 2.03 *H 0.50-2.00 MMOL/L Calcium Level 8.5 8.5-10.1 MG/DL Corrected Calcium 9.5 8.5-10.1 MG/DL Total Bilirubin 0.4 0.1-1.0 MG/DL Aspartate Amino Transf (AST/SGOT) 18 5-34 U/L Alanine Aminotransferase (ALT/SGPT) 12 0-55 U/L Alkaline Phosphatase 64 40-136 U/L Total Protein 5.8 L 6.4-8.2 GM/DL Albumin 2.7 L 3.2-4.5 GM/DL My Orders Orders - ANTWAN KIRBY MD Cbc With Automated Diff (07/15/18 07:55) Comprehensive Metabolic Panel (07/15/18 07:55) Blood Culture (07/15/18 07:55) Sputum Culture (07/15/18 07:55) Urinalysis (07/15/18 07:55) Urine Culture (07/15/18 07:55) Protime With Inr (07/15/18 07:55) Partial Thromboplastin Time (07/15/18 07:55) Chest 1 View, Ap/Pa Only (07/15/18 07:55) Saline Lock/Iv-Start (07/15/18 07:55) Vital Signs Adult Sepsis Patie Q15M (07/15/18 07:55) O2 (07/15/18 07:55) Remove Rings In Anticipation O (07/15/18 07:55) Lactic Acid Analyzer (07/15/18 07:55) Saline Lock/Iv-Start (07/15/18 07:55) Ns Iv 1000 Ml (Sodium Chloride 0.9%) (07/15/18 07:55) Ceftriaxone For Iv Use (Rocephin For I (07/15/18 09:15) Medications Given in ED Current Medications Medications Dose Ordered Sig/Luis A Route Start Time Stop Time Status Last Admin Dose Admin Sodium Chloride 1,000 ml @ 0 mls/hr Q0M ONCE IV 07/15/18 07:55 07/15/18 07:56 DC 07/15/18 08:30 1,000 MLS/HR Vital Signs/I&O 07/15/18 07:38 Temp 100.2 Pulse 81 Resp 20 B/P (MAP) 152/72 (98) Pulse Ox 96 O2 Delivery Room Air Capillary Refill : Progress Note : Progress Note Seen and evaluated. IV, labs, UA, chest x-ray, blood cultures and lactic acid ordered. Normal saline 1 L bolus. Monitor patient. Martines catheter ordered due to significant skin breakdown. 919: UTI noted. I discussed the case with Dr. Hidalgo who accepts patient for admission, inpatient status. Consult surgery. 924: I did discuss the case with Dr. Turk who accepts patient in consult. Patient is not persistently bleeding currently. There is concern about potential rectal tears due to large bowel movement that she had yesterday as the cause for bleeding. I also have hemorrhoids associated with this. I did discuss all the findings with the patient's family who agree with admission. Rocephin 1 g IV ordered. 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 Diagnostic Imaging Diagonstic Imaging: Xray Plain Films/CT/US/NM/MRI: chest Comments [facility] [place], [place] NAME: LILY WILHELM [facility] REC#: [id number] PT STATUS: REG ER : 1935 PHYSICIAN: ANTWAN KIRBY MD ADMIT DATE: 07/15/18/ER Draft Date of Exam:07/15/18 CHEST 1 VIEW, AP/PA ONLY INDICATION: Rectal bleeding. Time of exam: 8:26 AM Correlation is made with prior chest from 10/30/2017. The heart size is normal. The lungs are clear. The pulmonary vascularity is normal. No infiltrate, effusion or pneumothorax is identified. IMPRESSION: No acute cardiopulmonary process is detected. Dictated on workstation # [id number] Dict: 07/15/18 0832 Trans: 07/15/18 0835 [facility] [id number] Interpreted by: EVIE LAGUNA MD Electronically signed by: Departure Communication (Admissions) Time/Spoke to Admitting Phy: 09:20 Time/Spoke to Consulting Phy: 09:25 Impression Primary Impression: UTI (urinary tract infection) Qualified Codes: N30.01 - Acute cystitis with hematuria Additional Impressions: Rectal bleeding Decubitus ulcer of sacral area Qualified Codes: L89.152 - Pressure ulcer of sacral region, stage 2 Disposition: ADMITTED INPATIENT Condition: Stable Admissions Decision to Admit Reason: Admit from ER (General) Decision to Admit/Date: Jul 15, 2018 Time/Decision to Admit Time: 09:20 Departure-Patient Inst. Referrals: EFRAIN HIDALGO MD (PCP/Family) Primary Care Physician ANTWAN KIRBY MD Jul 15, 2018 08:06
[2018-07-15 08:22] LABS: BASOPHILS % (AUTO) 0 % (0-10); EOSINOPHILS # (AUTO) 0.1 10^3/uL (0.0-0.3); EOSINOPHILS % (AUTO) 3 % (0-10); HEMATOCRIT 35 % (35-52); HEMOGLOBIN 11.1 G/DL (11.5-16.0); LYMPHOCYTES # (AUTO) 1.2 X 10^3 (1.0-4.0); LYMPHOCYTES % (AUTO) 25 % (12-44); MEAN CORPUSCULAR HEMOGLOBIN 33 PG (25-34); MEAN CORPUSCULAR HGB CONC 32 G/DL (32-36); MEAN CORPUSCULAR VOLUME 102 FL (80-99); MEAN PLATELET VOLUME 9.9 FL (7.4-10.4); MONOCYTES # (AUTO) 0.5 X 10^3 (0.0-1.0); MONOCYTES % (AUTO) 11 % (0-12); NEUTROPHILS # (AUTO) 2.9 X 10^3 (1.8-7.8); NEUTROPHILS % (AUTO) 62 % (42-75); PLATELET COUNT 175 10^3/uL (130-400); RED CELL DISTRIBUTION WIDTH 13.1 % (10.0-14.5); WHITE BLOOD COUNT 4.7 10^3/uL (4.3-11.0)
[2018-07-15 08:30] LABS: BILIRUBIN,URINE NEGATIVE (NEGATIVE); CLARITY,URINE SLIGHTLY CLOUDY; COLOR,URINE YELLOW; GLUCOSE, URINE (UA) NEGATIVE (NEGATIVE); INR 1.2 (0.8-1.4); KETONES,URINE NEGATIVE (NEGATIVE); LEUKOCYTE ESTERASE ,URINE 3+ (NEGATIVE); NITRITE,URINE NEGATIVE (NEGATIVE); PH,URINE 7 (5-9); PROTEIN,URINE 2+ (NEGATIVE); PROTHROMBIN TIME PATIENT 15.3 SEC (12.2-14.7); UROBILINOGEN,URINE NORMAL (NORMAL)
--- NOTE | 2018-07-15 08:36 | Diagnostic Imaging Report ---
INDICATION: Rectal bleeding. Time of exam: 8:26 AM Correlation is made with prior chest from 10/30/2017. The heart size is normal. The lungs are clear. The pulmonary vascularity is normal. No infiltrate, effusion or pneumothorax is identified. IMPRESSION: No acute cardiopulmonary process is detected. Dictated by: Dictated on workstation # [id number]
[2018-07-15 08:38] LABS: ALANINE AMINOTRANSFERASE 12 U/L (0-55); ALBUMIN 2.7 GM/DL (3.2-4.5); ALKALINE PHOSPHATASE 64 U/L (40-136); BILIRUBIN,TOTAL 0.4 MG/DL (0.1-1.0); BUN/CREATININE RATIO 24; CALCIUM 8.5 MG/DL (8.5-10.1); CARBON DIOXIDE 25 MMOL/L (21-32); CHLORIDE 108 MMOL/L (98-107); CREATININE SERUM 0.85 MG/DL (0.60-1.30); GFR ESTIMATED > 60; GLUCOSE 167 MG/DL (70-105); POTASSIUM 4.7 MMOL/L (3.6-5.0); SODIUM 144 MMOL/L (135-145); TOTAL PROTEIN 5.8 GM/DL (6.4-8.2)
[2018-07-15 08:55] LABS: BACTERIA,URINE TRACE /HPF; RBC,URINE 0-2 /HPF; WBC,URINE >100 /HPF
[2018-07-15] MEDS ORDERED: cefTRIAXone FOR IV USE 1,000 MG in NS (IVPB) 50 ML IV ONE (09:15)
[2018-07-15] MEDS ORDERED: RISP1TAB3 PO (11:28)
[2018-07-15] MEDS ORDERED: ASCO-262 PO (11:28)
[2018-07-15] MEDS ORDERED: INSU100V16 SQ (11:28)
[2018-07-15] MEDS ORDERED: AMLO5TAB7 PO (11:28)
[2018-07-15] MEDS ORDERED: MULT-166 PO (11:28)
[2018-07-15] MEDS ORDERED: CLON1TAB13 PO (11:28)
[2018-07-15] MEDS ORDERED: CLON0.5T13 PO (11:28)
[2018-07-15] MEDS ORDERED: NITR100C10 PO (11:28)
[2018-07-15] MEDS ORDERED: L. A1TAB10 PO (11:28)
[2018-07-15] MEDS ORDERED: INSU100V5 SQ (11:28)
[2018-07-15] MEDS ORDERED: RISP0.5T3 PO (11:29)
[2018-07-15] MEDS ORDERED: MAG-10 PO (11:29)
[2018-07-15] MEDS ORDERED: PROM25SU43 RC (11:29)
[2018-07-15] MEDS ORDERED: LOPE2TAB34 PO (11:29)
[2018-07-15] MEDS ORDERED: HYOS0.1281 PO (11:29)
[2018-07-15 11:30] VITALS: BP 138/64
[2018-07-15] MEDS ORDERED: CATHETER FLUSH 10 ML SYR IV PRN (12:15)
[2018-07-15] MEDS: NS IV 1000 ML 1,000 ML IV SCH ×2 (12:42→23:37)
[2018-07-15 15:30] VITALS: BP 136/72
[2018-07-15] MEDS ORDERED: MILK OF MAGNESIA 400 MG/5 ML 30 ML UDC PO PRN (17:15)
[2018-07-15] MEDS ORDERED: PROMETHAZINE 25 MG (PHENERGAN) SUPP RC PRN (17:15)
[2018-07-15] MEDS ORDERED: HYOSCYAMINE 0.125 MG (LEVSIN) TAB SL PRN (17:30)
[2018-07-15] MEDS ORDERED: inSUlin ASPART (NovoLOG) 1 UNIT/0.01 ML (CHARGE PER UNIT) SC SCH (17:30)
[2018-07-15] MEDS ORDERED: LOPERAMIDE 2 MG (IMODIUM) CAP PO PRN (17:30)
[2018-07-15] MEDS ORDERED: ANTACID SUSP 30 ML UDC (MYLANTA) PO PRN (17:45)
[2018-07-15] MEDS: risperiDONE 1 MG (RisperDAL) TAB PO SCH (17:51)
--- NOTE | 2018-07-15 18:54 | Wound Care Assessment ---
Wound Care Assessment Date Seen by Provider: Jul 15, 2018 Time Seen by Provider: 18:50 Chief Complaint Sacral and bilateral heel pressure ulcers. HPI The patient is an 83 year old female with a DTI/stage 2 pressure injury to sacrum and bilateral heel Stage 1 pressure injuries, in a setting of debility, dementia, and diabetes. The patient has been admitted for UTI. Smoking Status: Former Smoker Recreational Drug Use: No Alcohol Use: Denies Use Exam Vital Signs Date Time Temp Pulse Resp B/P (MAP) Pulse Ox O2 Delivery O2 Flow Rate FiO2 07/15/18 15:30 97.2 86 20 136/72 (93) 96 Room Air Capillary Refill : Less Than 3 Seconds Results Laboratory Tests 07/15/18 08:00: White Blood Count 4.7, Red Blood Count 3.40L, Hemoglobin 11.1L, Hematocrit 35, Mean Corpuscular Volume 102H, Mean Corpuscular Hemoglobin 33, Mean Corpuscular Hemoglobin Concent 32, Red Cell Distribution Width 13.1, Platelet Count 175, Mean Platelet Volume 9.9, Neutrophils (%) (Auto) 62, Lymphocytes (%) (Auto) 25, Monocytes (%) (Auto) 11, Eosinophils (%) (Auto) 3, Basophils (%) (Auto) 0, Neutrophils # (Auto) 2.9, Lymphocytes # (Auto) 1.2, Monocytes # (Auto) 0.5, Eosinophils # (Auto) 0.1, Basophils # (Auto) 0.0, Prothrombin Time 15.3H, INR Comment 1.2, Activated Partial Thromboplast Time 28, Urine Color YELLOW, Urine Clarity SLIGHTLY CLOUDY, Urine pH 7, Urine Specific [place] 1.005L, Urine Protein 2+H, Urine Glucose (UA) NEGATIVE, Urine Ketones NEGATIVE, Urine Nitrite NEGATIVE, Urine Bilirubin NEGATIVE, Urine Urobilinogen NORMAL, Urine Leukocyte Esterase 3+H, Urine RBC (Auto) 2+H, Urine RBC 0-2, Urine WBC >100H, Urine Squamous Epithelial Cells 2-5, Urine Crystals NONE, Urine Bacteria TRACE, Urine Casts NONE, Urine Mucus NEGATIVE, Urine Culture Indicated NO, Sodium Level 144, Potassium Level 4.7, Chloride Level 108H, Carbon Dioxide Level 25, Anion Gap 11 , Blood Urea Nitrogen 20H, Creatinine 0.85, Estimat Glomerular Filtration Rate > 60, BUN/Creatinine Ratio 24, Glucose Level 167H, Lactic Acid Level 2.03*H, Calcium Level 8.5, Corrected Calcium 9.5, Total Bilirubin 0.4, Aspartate Amino Transf (AST/SGOT) 18, Alanine Aminotransferase (ALT/SGPT) 12, Alkaline Phosphatase 64, Total Protein 5.8L, Albumin 2.7L 07/15/18 10:25: Lactic Acid Level 1.60 JIHAN MUNSON MD Jul 15, 2018 18:54
--- NOTE | 2018-07-15 19:05 | History & Physicial ---
History of Present Illness History of Present Illness Reason for visit/HPI 83-year-old female admitted through the emergency department after being sent over by EMS from assisted She apparently has been with rectal bleed. Her daughter does also report she has been somewhat constipated. She has not had any issues with any fever She recently returns from [facility] in [facility]. She has been placed on medications that it helped her tremendously with her agitation. She spends a lot of time relaxing and taking naps. She has been also treated for UTIs in the past. She currently denies any significant pain. Date of Admission Jul 15, 2018 at 09:52 Date Seen by a Provider: Jul 15, 2018 Time Seen by a Provider: 17:20 I consulted on this patient on 07/15/18 19:00 Attending Physician Azeem Hidalgo MD Admitting Physician Azeem Hidalgo MD Consult Allergies and Home Medications Allergies Coded Allergies: diphenhydramine HCl (Unverified Allergy, Unknown, 04/28/11) Home Medications Amlodipine Besylate 5 Mg Tablet, 5 MG PO DAILY, (Reported) Ascorbate Calcium 500 Mg Tablet, 500 MG PO DAILY, (Reported) Aspirin 81 Mg Tablet.dr, 81 MG PO DAILY, (Reported) Calcium Carbonate/Vitamin D3 1 Each Tablet, 1 TAB PO DAILY, (Reported) Carvedilol 12.5 Mg Tablet, 12.5 MG PO DAILY, (Reported) Clonazepam 0.5 Mg Tablet, 0.5 MG PO 0800,1400, (Reported) Clonazepam 1 Mg Tablet, 1 MG PO HS, (Reported) Famotidine 20 Mg Tablet, 20 MG PO 2100, (Reported) Hydrocodone Bit/Acetaminophen 1 Each Tablet, 1 TAB PO BID, (Reported) Hyoscyamine Sulfate 0.125 Mg Tablet, 0.125 MG PO Q8H PRN for NAUSEA, (Reported) Insulin Aspart 100 Unit/1 Ml Susp, 0-12 UNIT SQ TIDAC, (Reported) 60-150 = 0 UNITS 151-200 =4 UNITS 201-250 =6 UNITS 251-300 =8 UNITS 301-350 = 10 UNITS 351-400= 12 UNITS Insulin Determir 1,000 Units/10 Ml Soln, 25 UNITS SQ HS, (Reported) L. Acidophilus/L.bulgaricus 1 Each Tablet, 1 TAB PO DAILY, (Reported) Loperamide HCl 2 Mg Tablet, 2 MG PO QID PRN for DIARRHEA, (Reported) Mag Hydrox/Al Hydrox/Simeth 355 Ml Oral.susp, 30 ML PO Q4H PRN for INDIGESTION, (Reported) Magnesium Hydroxide 400 Mg/5 Ml Oral.susp, 30 ML PO DAILY PRN for CONSTIPATION- 7TH LINE, (Reported) Multivitamin with Minerals 1 Each Tablet, 1 TAB PO DAILY, (Reported) Nitrofurantoin Monohyd/M-Cryst 100 Mg Capsule, 100 MG PO 1200, (Reported) Promethazine HCl 25 Mg Supp.rect, 25 MG RC Q4H PRN for NAUSEA/VOMITING-2ND LINE, (Reported) Risperidone 1 Mg Tablet, 1 MG PO 1400,1800, (Reported) Risperidone 0.5 Mg Tablet, 0.5 MG PO 0600, (Reported) Patient Home Medication List Home Medication List Reviewed: Yes Past Gpdearh-Wlynhb-Cxvzoa Hx Patient Social History Marrital Status: Number of Children: 2 Alcohol Use: Denies Use Recreational Drug Use: No Smoking Status: Former Smoker Former Smoker, Quit: February 20, 2016 Type Used: Cigarettes Physical Abuse Screen: No Sexual Abuse: No Recent Foreign Travel: No Contact w/other who traveled: No Recent Hopitalizations: Yes Recent Infectious Disease Expo: No Immunizations Up To Date Tetanus Booster (TDap): Unknown Pediatric: No Date of Pneumonia Vaccine: Jun 24, 2016 Date of Influenza Vaccine: Jun 05, 2018 Seasonal Allergies Seasonal Allergies: No Surgeries Yes (BOWEL OBSTRUCTIONS) Abdominal, Bowel Surgery, Coronary Stent, Gallbladder, Hysterectomy, Orthopedic Respiratory Yes Currently Using CPAP: No Currently Using BIPAP: No Cardiovascular Yes Hypertension Neurological Yes (alzheimers) Dementia Reproductive System : No Hx Reproductive Disorders: No Sexually Transmitted Disease: No HIV/AIDS: No 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: Menopausal Genitourinary Yes Bladder Infection Gastrointestinal Yes Gastroesophageal Reflux Musculoskeletal Yes (PT IS NON-AMBULATORY) Arthritis, Gout Endocrine History of Endocrine Disorders: Yes (OBESITY) Endocrine Disorders: Diabetes, Non-Insulin dep HEENT History of HEENT Disorders: No Cancer No Psychosocial History of Psychiatric Problem: Yes Behavioral Health Disorders: Anxiety, Depression Integumentary History of Skin or Integumenta: Yes (DECUBITUS ULCERS ON BUTTOCKS) Blood Transfusions History of Blood Disorders: Yes (anemia) Adverse Reaction to a Blood Tr: No Family Medical History Family Hx: Abdominal aortic aneurysm Myocardial infarction G8 SISTER, Review of Systems Constitutional: see HPI Respiratory: no symptoms reported Cardiovascular: no symptoms reported Genitourinary: see HPI Physical Exam Vital Signs Vital Signs - First Documented 07/15/18 07:38 Temp 100.2 Pulse 81 Resp 20 B/P (MAP) 152/72 (98) Pulse Ox 96 O2 Delivery Room Air Capillary Refill : Less Than 3 Seconds Height, Weight, BMI Height: 5'5.00" Weight: 220lbs. 3.5oz. [id number]; 36.7 BMI Method:Estimated General Appearance: No Apparent Distress Eyes: Bilateral Eye Normal Inspection HEENT: PERRL/EOMI, Pharynx Normal Neck: Full Range of Motion, Supple Respiratory: Lungs Clear Cardiovascular: Regular Rate, Rhythm Gastrointestinal: Soft, Other (no guarding or distention) Rectal: Deferred (since performed by ER physician and surgical consultation) Extremity: Normal Capillary Refill Neurologic/Psychiatric: Alert Skin: Warm/Dry Comments NAME: LILY WILHELM MED REC#: [id number] PT STATUS: ADM IN : 1935 PHYSICIAN: ANTWAN KIRBY MD ADMIT DATE: 07/15/18 Signed Date of Exam: 07/15/18 CHEST 1 VIEW, AP/PA ONLY INDICATION: Rectal bleeding. Time of exam: 8:26 AM Correlation is made with prior chest from 10/30/2017. The heart size is normal. The lungs are clear. The pulmonary vascularity is normal. No infiltrate, effusion or pneumothorax is identified. IMPRESSION: No acute cardiopulmonary process is detected. Dictated by: Dictated on workstation # [id number] Dict: 07/15/18 0832 Trans: 07/15/18 1553 Interpreted by: EVIE LAGUNA MD Electronically signed by: EVIE LAGUNA MD 07/15/18 1553 Assessment/Plan Assessment and Plan 1. Urinary tract infection consideration to urosepsis -patient placed on Rocephin -Urine culture pending -IV fluids initiated 2. Rectal bleed with history of stool stuck in the anal region -consultation with surgery 3. Decubitus ulcer sacral region -Consult wound care 4. Diabetes mellitus -Continue with diabetic meds and also use sliding scale insulin Admission Diagnosis 1. Urinary tract infection consideration to urosepsis 2. Rectal bleed with history of stool stuck in the anal region 3. Decubitus ulcer Admission Status: Inpatient Order (span 2 midnights) Reason for Inpatient Admission: iV fluids and IV antibiotics. Surgical and wound consultation. Clinical Quality Measures DVT/VTE Risk/Contraindication: Risk Factor Score Per Nursin RFS Level Per Nursing on Admit: 4+=Very High AZEEM HIDALGO MD Jul 15, 2018 19:05
[2018-07-15 19:10] VITALS: BP 132/75
--- NOTE | 2018-07-15 20:38 | Consultation ---
History of Present Illness History of Present Illness Patient Consulted On(enedina/time) 07/15/18 20:33 Time Seen by Provider: 11:58 History of Present Illness Surgery asked to consult regarding rectal bleed. HPI per IM: Reason for visit/HPI 83-year-old female admitted through the emergency department after being sent over by EMS from [facility] She apparently has been with rectal bleed. Her daughter does also report she has been somewhat constipated. She has not had any issues with any fever She recently returns from [facility] in [facility]. She has been placed on medications that it helped her tremendously with her agitation. She spends a lot of time relaxing and taking naps. She has been also treated for UTIs in the past. She currently denies any significant pain. When I spoke to the pt earlier today with her daughter; her daughter stated that at the [facility] they had to manually disimpact a very hard stool and after that they saw some bleeding. A short time later the pt then passed some blood clots and was subsequently sent to the ER. The pt can answer simple questions, but most information is obtained from the daughter. The daughter states she is basically non-ambulatory and has been having constipation for a long time. She has been taking MOM or MgCitrate ( daugher unsure). She does not think she has had bleeding before. Daughter also states the pt has had "32 major abdominal surgeries". Allergies and Home Medications Allergies Coded Allergies: diphenhydramine HCl (Unverified Allergy, Unknown, 04/28/11) Home Medications Amlodipine Besylate 5 Mg Tablet, 5 MG PO DAILY, (Reported) Ascorbate Calcium 500 Mg Tablet, 500 MG PO DAILY, (Reported) Aspirin 81 Mg Tablet.dr, 81 MG PO DAILY, (Reported) Calcium Carbonate/Vitamin D3 1 Each Tablet, 1 TAB PO DAILY, (Reported) Carvedilol 12.5 Mg Tablet, 12.5 MG PO DAILY, (Reported) Clonazepam 0.5 Mg Tablet, 0.5 MG PO 0800,1400, (Reported) Clonazepam 1 Mg Tablet, 1 MG PO HS, (Reported) Famotidine 20 Mg Tablet, 20 MG PO 2100, (Reported) Hydrocodone Bit/Acetaminophen 1 Each Tablet, 1 TAB PO BID, (Reported) Hyoscyamine Sulfate 0.125 Mg Tablet, 0.125 MG PO Q8H PRN for NAUSEA, (Reported) Insulin Aspart 100 Unit/1 Ml Susp, 0-12 UNIT SQ TIDAC, (Reported) 60-150 = 0 UNITS 151-200 =4 UNITS 201-250 =6 UNITS 251-300 =8 UNITS 301-350 = 10 UNITS 351-400= 12 UNITS Insulin Determir 1,000 Units/10 Ml Soln, 25 UNITS SQ HS, (Reported) L. Acidophilus/L.bulgaricus 1 Each Tablet, 1 TAB PO DAILY, (Reported) Loperamide HCl 2 Mg Tablet, 2 MG PO QID PRN for DIARRHEA, (Reported) Mag Hydrox/Al Hydrox/Simeth 355 Ml Oral.susp, 30 ML PO Q4H PRN for INDIGESTION, (Reported) Magnesium Hydroxide 400 Mg/5 Ml Oral.susp, 30 ML PO DAILY PRN for CONSTIPATION- 7TH LINE, (Reported) Multivitamin with Minerals 1 Each Tablet, 1 TAB PO DAILY, (Reported) Nitrofurantoin Monohyd/M-Cryst 100 Mg Capsule, 100 MG PO 1200, (Reported) Promethazine HCl 25 Mg Supp.rect, 25 MG RC Q4H PRN for NAUSEA/VOMITING-2ND LINE, (Reported) Risperidone 1 Mg Tablet, 1 MG PO 1400,1800, (Reported) Risperidone 0.5 Mg Tablet, 0.5 MG PO 0600, (Reported) Patient Home Medication List Home Medication List Reviewed: Yes Past Rlgvbuj-Vdnhuq-Thhanr Hx Patient Social History Alcohol Use: Denies Use Recreational Drug Use: No Smoking Status: Former Smoker Former Smoker, Quit: February 20, 2016 Type Used: Cigarettes Recent Foreign Travel: No Contact w/Someone Who Travel: No Recent Infectious Disease Expo: No Recent Hopitalizations: Yes Physical Abuse Screen: No Sexual Abuse: No Immunizations Up To Date Tetanus Booster (TDap): Unknown PED Vaccines UTD: No Date of Pneumonia Vaccine: Jun 24, 2016 Date of Influenza Vaccine: Jun 05, 2018 Seasonal Allergies Seasonal Allergies: No Surgeries History of Surgeries: Yes (BOWEL OBSTRUCTIONS) Surgeries: Abdominal, Bowel Surgery, Coronary Stent, Gallbladder, Hysterectomy , Orthopedic Respiratory History of Respiratory Disorde: Yes Respiratory Disorders: COPD Cardiovascular History of Cardiac Disorders: Yes Cardiac Disorders: Hypertension Neurological History of Neurological Disord: Yes (alzheimers) Neurological Disorders: Dementia Reproductive System : No Hx Reproductive Disorders: No Sexually Transmitted Disease: No HIV/AIDS: No 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 Genitourinary History of Genitourinary Disor: Yes Genitourinary Disorders: Bladder Infection Gastrointestinal History of Gastrointestinal Di: Yes Gastrointestinal Disorders: Gastroesophageal Reflux Musculoskeletal History of Musculoskeletal Dis: Yes (PT IS NON-AMBULATORY) Musculoskeletal Disorders: Arthritis, Gout Endocrine History of Endocrine Disorders: Yes (OBESITY) Endocrine Disorders: Diabetes, Non-Insulin dep HEENT History of HEENT Disorders: No Cancer History of Cancer: No Psychosocial History of Psychiatric Problem: Yes Behavioral Health Disorders: Anxiety, Depression Integumentary History of Skin or Integumenta: Yes (DECUBITUS ULCERS ON BUTTOCKS) Blood Transfusions History of Blood Disorders: Yes (anemia) Adverse Reaction to a Blood Tr: No Family Medical History Significant Family History: Cancer (denies), CAD Over 55 Years Old Family Medial History: Abdominal aortic aneurysm Myocardial infarction G8 SISTER, Review of Systems-General ROS-Unable to Obtain: Pt does not answer questions so unable to obtain review Gastrointestinal: No abdominal pain; constipation Skin: other (Sacral and bilateral heel ulcers) Psychiatric/Neurological: Other (dementia) Physical Exam-General Problems Physical Exam Vital Signs Vital Signs - First Documented 07/15/18 07:38 Temp 100.2 Pulse 81 Resp 20 B/P (MAP) 152/72 (98) Pulse Ox 96 O2 Delivery Room Air Capillary Refill : Less Than 3 Seconds General Appearance: no apparent distress, obese Eyes: Bilateral Eye PERRL, Bilateral Eye EOMI HEENT: pharynx normal; No scleral icterus (R), No scleral icterus (L) Respiratory: lungs clear, normal breath sounds, no respiratory distress, no accessory muscle use Cardiovascular: regular rate, rhythm, no edema, no murmur Gastrointestinal: normal bowel sounds, soft, no organomegaly, other (multiple cicatrix on abdomen, including previous skin graft) Extremities: no pedal edema, no calf tenderness, slow capillary refill Neurologic/Psychiatric: alert, disoriented x 3 Skin: normal color, warm/dry, other (sacral and heel decubs) Data Review Labs Laboratory Tests 07/15/18 08:00: White Blood Count 4.7, Red Blood Count 3.40L, Hemoglobin 11.1L, Hematocrit 35, Mean Corpuscular Volume 102H, Mean Corpuscular Hemoglobin 33, Mean Corpuscular Hemoglobin Concent 32, Red Cell Distribution Width 13.1, Platelet Count 175, Mean Platelet Volume 9.9, Neutrophils (%) (Auto) 62, Lymphocytes (%) (Auto) 25, Monocytes (%) (Auto) 11, Eosinophils (%) (Auto) 3, Basophils (%) (Auto) 0, Neutrophils # (Auto) 2.9, Lymphocytes # (Auto) 1.2, Monocytes # (Auto) 0.5, Eosinophils # (Auto) 0.1, Basophils # (Auto) 0.0, Prothrombin Time 15.3H, INR Comment 1.2, Activated Partial Thromboplast Time 28, Urine Color YELLOW, Urine Clarity SLIGHTLY CLOUDY, Urine pH 7, Urine Specific [place] 1.005L, Urine Protein 2+H, Urine Glucose (UA) NEGATIVE, Urine Ketones NEGATIVE, Urine Nitrite NEGATIVE, Urine Bilirubin NEGATIVE, Urine Urobilinogen NORMAL, Urine Leukocyte Esterase 3+H, Urine RBC (Auto) 2+H, Urine RBC 0-2, Urine WBC >100H, Urine Squamous Epithelial Cells 2-5, Urine Crystals NONE, Urine Bacteria TRACE, Urine Casts NONE, Urine Mucus NEGATIVE, Urine Culture Indicated NO, Sodium Level 144, Potassium Level 4.7, Chloride Level 108H, Carbon Dioxide Level 25, Anion Gap 11 , Blood Urea Nitrogen 20H, Creatinine 0.85, Estimat Glomerular Filtration Rate > 60, BUN/Creatinine Ratio 24, Glucose Level 167H, Lactic Acid Level 2.03*H, Calcium Level 8.5, Corrected Calcium 9.5, Total Bilirubin 0.4, Aspartate Amino Transf (AST/SGOT) 18, Alanine Aminotransferase (ALT/SGPT) 12, Alkaline Phosphatase 64, Total Protein 5.8L, Albumin 2.7L 07/15/18 10:25: Lactic Acid Level 1.60 07/15/18 20:16: Glucometer 268H Assessment/Plan Assessment/Plan Assessment/Plan Rectal bleed Constipation DM, HTN Sacral Decub and B/L heel decub Pt passed some clots and had bleeding; most likely secondary to recent hard stool and disimpaction. I went over options with the family: 1) watch and monitor h/h, looking for drop or profuse bleeding 2) colonoscopy 3) could even do rectal exam under anesthesia. The most important thing is what would the pt want to do, nothing we do on this admission is going to improve her Quality of life. Pt is a DNR and daughter doesn't think she would want a major surgery; plus, she has had multiple abdominal surgeries which make any furhter surgery very, very hard. At this time the family would just like to monitor her bleeding and H/H; they are leaning toward doing nothing. I think this is a very reasonable course of action and will follow along. Thank you for the consult. Clinical Quality Measures DVT/VTE Risk/Contraindication: Risk Factor Score Per Nursin RFS Level Per Nursing on Admit: 4+=Very High CASSANDRA RONQUILLO DO Jul 15, 2018 20:38
[2018-07-15] MEDS: inSUlin DETERMIR 1 UNIT/0.01 ML (LEVEMIR) CHARGE PER UNIT SQ SCH (20:40)
[2018-07-15] MEDS: FAMOTIDINE 20 MG (PEPCID) TABLET PO SCH (20:41)
[2018-07-15] MEDS: clonazePAM 1 MG (KlonoPIN) TAB PO SCH (20:41)
[2018-07-15] MEDS: inSUlin ASPART (NovoLOG) 1 UNIT/0.01 ML (CHARGE PER UNIT) SC SCH (20:41)
[2018-07-15] MEDS: HYDROcodone/APAP 5 MG/325 MG (LORTAB) TAB PO SCH (20:41)
[2018-07-15 23:40] VITALS: BP 125/61
[2018-07-16 03:55] VITALS: BP 143/66
[2018-07-16 04:08] LABS: BASOPHILS % (AUTO) 1 % (0-10); EOSINOPHILS # (AUTO) 0.2 10^3/uL (0.0-0.3); EOSINOPHILS % (AUTO) 4 % (0-10); HEMATOCRIT 32 % (35-52); HEMOGLOBIN 10.1 G/DL (11.5-16.0); LYMPHOCYTES # (AUTO) 1.1 X 10^3 (1.0-4.0); LYMPHOCYTES % (AUTO) 27 % (12-44); MEAN CORPUSCULAR HEMOGLOBIN 33 PG (25-34); MEAN CORPUSCULAR HGB CONC 32 G/DL (32-36); MEAN CORPUSCULAR VOLUME 103 FL (80-99); MEAN PLATELET VOLUME 9.3 FL (7.4-10.4); MONOCYTES # (AUTO) 0.4 X 10^3 (0.0-1.0); MONOCYTES % (AUTO) 11 % (0-12); NEUTROPHILS # (AUTO) 2.3 X 10^3 (1.8-7.8); NEUTROPHILS % (AUTO) 57 % (42-75); PLATELET COUNT 140 10^3/uL (130-400); RED CELL DISTRIBUTION WIDTH 12.9 % (10.0-14.5); WHITE BLOOD COUNT 3.9 10^3/uL (4.3-11.0)
[2018-07-16 04:30] LABS: ALANINE AMINOTRANSFERASE 10 U/L (0-55); ALBUMIN 2.5 GM/DL (3.2-4.5); ALKALINE PHOSPHATASE 65 U/L (40-136); BILIRUBIN,TOTAL 0.3 MG/DL (0.1-1.0); BUN/CREATININE RATIO 26; CALCIUM 8.2 MG/DL (8.5-10.1); CARBON DIOXIDE 21 MMOL/L (21-32); CHLORIDE 112 MMOL/L (98-107); GFR ESTIMATED > 60; GLUCOSE 135 MG/DL (70-105); POTASSIUM 4.2 MMOL/L (3.6-5.0); SODIUM 142 MMOL/L (135-145); TOTAL PROTEIN 5.3 GM/DL (6.4-8.2)
[2018-07-16] MEDS: inSUlin ASPART (NovoLOG) 1 UNIT/0.01 ML (CHARGE PER UNIT) SC SCH ×4 (05:48→20:17)
--- NOTE | 2018-07-16 07:32 | Progress Note (SOAP) ---
Subjective Date Seen by a Provider: Jul 16, 2018 Time Seen by a Provider: 07:40 Subjective/Events-last exam No obvious distress by observation. She reports no pain. She was not very talkative this morning. Focused Exam Lactate Level 07/15/18 08:00: Lactic Acid Level 2.03*H 07/15/18 10:25: Lactic Acid Level 1.60 Objective Exam Vital Signs Date Time Temp Pulse Resp B/P (MAP) Pulse Ox O2 Delivery O2 Flow Rate FiO2 07/16/18 03:55 97.3 74 20 143/66 (91) 98 Room Air 07/15/18 23:40 97.5 72 20 125/61 (82) 95 Room Air 07/15/18 20:00 07/15/18 19:10 96.4 89 20 132/75 (94) 97 Room Air 07/15/18 15:30 97.2 86 20 136/72 (93) 96 Room Air 07/15/18 11:30 97.3 83 20 138/64 (88) 95 Room Air 07/15/18 10:45 Room Air 07/15/18 10:00 75 18 134/63 (86) 99 Room Air 07/15/18 07:38 100.2 81 20 152/72 (98) 96 Room Air I & O 07/16/18 07:00 Intake Total 2330 ml Output Total 930 ml Balance 1400 ml Capillary Refill : Less Than 3 Seconds General Appearance: No Apparent Distress Respiratory: Lungs Clear Cardiovascular: Regular Rate, Rhythm Gastrointestinal: soft Other comments Perineum not examined this am Results Lab Laboratory Tests 07/15/18 08:00: White Blood Count 4.7, Red Blood Count 3.40L, Hemoglobin 11.1L, Hematocrit 35, Mean Corpuscular Volume 102H, Mean Corpuscular Hemoglobin 33, Mean Corpuscular Hemoglobin Concent 32, Red Cell Distribution Width 13.1, Platelet Count 175, Mean Platelet Volume 9.9, Neutrophils (%) (Auto) 62, Lymphocytes (%) (Auto) 25, Monocytes (%) (Auto) 11, Eosinophils (%) (Auto) 3, Basophils (%) (Auto) 0, Neutrophils # (Auto) 2.9, Lymphocytes # (Auto) 1.2, Monocytes # (Auto) 0.5, Eosinophils # (Auto) 0.1, Basophils # (Auto) 0.0, Prothrombin Time 15.3H, INR Comment 1.2, Activated Partial Thromboplast Time 28, Urine Color YELLOW, Urine Clarity SLIGHTLY CLOUDY, Urine pH 7, Urine Specific [place] 1.005L, Urine Protein 2+H, Urine Glucose (UA) NEGATIVE, Urine Ketones NEGATIVE, Urine Nitrite NEGATIVE, Urine Bilirubin NEGATIVE, Urine Urobilinogen NORMAL, Urine Leukocyte Esterase 3+H, Urine RBC (Auto) 2+H, Urine RBC 0-2, Urine WBC >100H, Urine Squamous Epithelial Cells 2-5, Urine Crystals NONE, Urine Bacteria TRACE, Urine Casts NONE, Urine Mucus NEGATIVE, Urine Culture Indicated NO, Sodium Level 144, Potassium Level 4.7, Chloride Level 108H, Carbon Dioxide Level 25, Anion Gap 11 , Blood Urea Nitrogen 20H, Creatinine 0.85, Estimat Glomerular Filtration Rate > 60, BUN/Creatinine Ratio 24, Glucose Level 167H, Lactic Acid Level 2.03*H, Calcium Level 8.5, Corrected Calcium 9.5, Total Bilirubin 0.4, Aspartate Amino Transf (AST/SGOT) 18, Alanine Aminotransferase (ALT/SGPT) 12, Alkaline Phosphatase 64, Total Protein 5.8L, Albumin 2.7L 07/15/18 10:25: Lactic Acid Level 1.60 07/15/18 20:16: Glucometer 268H 07/16/18 04:00: White Blood Count 3.9L, Red Blood Count 3.10L, Hemoglobin 10.1L, Hematocrit 32L , Mean Corpuscular Volume 103H, Mean Corpuscular Hemoglobin 33, Mean Corpuscular Hemoglobin Concent 32, Red Cell Distribution Width 12.9, Platelet Count 140, Mean Platelet Volume 9.3, Neutrophils (%) (Auto) 57, Lymphocytes (%) (Auto) 27, Monocytes (%) (Auto) 11, Eosinophils (%) (Auto) 4, Basophils (%) ( Auto) 1, Neutrophils # (Auto) 2.3, Lymphocytes # (Auto) 1.1, Monocytes # (Auto) 0.4, Eosinophils # (Auto) 0.2, Basophils # (Auto) 0.0, Sodium Level 142, Potassium Level 4.2, Chloride Level 112H, Carbon Dioxide Level 21, Anion Gap 9, Blood Urea Nitrogen 18, Creatinine 0.70, Estimat Glomerular Filtration Rate > 60 , BUN/Creatinine Ratio 26, Glucose Level 135H, Calcium Level 8.2L, Corrected Calcium 9.4, Total Bilirubin 0.3, Aspartate Amino Transf (AST/SGOT) 14, Alanine Aminotransferase (ALT/SGPT) 10, Alkaline Phosphatase 65, Total Protein 5.3L, Albumin 2.5L Assessment/Plan Assessment/Plan Assess & Plan/Chief Complaint 1. Urinary tract infection consideration to urosepsis -patient placed on Rocephin -Urine culture pending -IV fluids initiated 07/16 -Day #2 Rocephin -awaiting culture report from urine 2. Rectal bleed with history of stool stuck in the anal region -consultation with surgery 07/16 -H/H stable -Dr Turk's recommendations appreciated. 3. Decubitus ulcer sacral region -Consult wound care 4. Diabetes mellitus -Continue with diabetic meds and also use sliding scale insulin Clinical Quality Measures Admission Status Admission Dx 1. Urinary tract infection consideration to urosepsis -patient placed on Rocephin -Urine culture pending -IV fluids initiated 2. Rectal bleed with history of stool stuck in the anal region -consultation with surgery 3. Decubitus ulcer sacral region -Consult wound care 4. Diabetes mellitus -Continue with diabetic meds and also use sliding scale insulin DVT/VTE Risk/Contraindication: Risk Factor Score Per Nursin RFS Level Per Nursing on Admit: 4+=Very High EFRAIN HIDALGO MD Jul 16, 2018 07:31
[2018-07-16 08:08] VITALS: BP 138/78
[2018-07-16] MEDS: NS IV 1000 ML 1,000 ML IV SCH ×2 (09:15→17:47)
[2018-07-16] MEDS: cefTRIAXone 1 GM/NS 50 ML IVPB IV SCH ×2 (09:20)
[2018-07-16] MEDS: ASPIRIN 81 MG CHEW (CHILDREN'S ASA) PO SCH (11:04)
[2018-07-16] MEDS: clonazePAM 0.5 MG (KlonoPIN) TAB PO SCH ×2 (11:04→15:21)
[2018-07-16] MEDS: LACTOBACILLUS ACIDOPHILUS (PROBIOTIC) CAPSULE PO SCH (11:04)
[2018-07-16] MEDS: CARVEDILOL 12.5 MG (COREG) TABLET PO SCH (11:05)
[2018-07-16] MEDS: amLODIPine 5 MG (NORVASC) TAB PO SCH (11:05)
[2018-07-16] MEDS: ASCORBIC ACID (VIT C) 500 MG TABLET PO SCH (11:05)
[2018-07-16] MEDS: HYDROcodone/APAP 5 MG/325 MG (LORTAB) TAB PO SCH ×3 (11:05→20:16)
[2018-07-16] MEDS: CALCIUM CARB + VIT D 600 MG (CALCARB + D) TAB PO SCH (11:05)
[2018-07-16] MEDS: risperiDONE 0.25 MG (RisperDAL) TAB PO SCH (11:06)
[2018-07-16] MEDS: MULTIVIT W/MINERALS TAB (THERAGRAN M) PO SCH (11:06)
[2018-07-16 12:00] VITALS: BP 142/63
[2018-07-16] MEDS ORDERED: NITROFURANTOIN 100 MG (MACROBID) CAPSULE PO SCH (12:00)
[2018-07-16] MEDS: risperiDONE 1 MG (RisperDAL) TAB PO SCH ×2 (15:21→17:47)
[2018-07-16 15:55] VITALS: BP 137/63
--- NOTE | 2018-07-16 16:45 | Progress Note ---
Subjective Time Seen by a Provider: 09:31 Subjective/Events-last exam Pt seen and examined, she denies abdominal pain. Nurse states she is refusing to move or eat. Nurse has not seen anymore bleeding from rectum. Review of Systems Pulmonary: No Dyspnea, No Cough Cardiovascular: No: Chest Pain, Palpitations Gastrointestinal: No: Nausea, Vomiting, Abdominal Pain Focused Exam Lactate Level 07/15/18 08:00: Lactic Acid Level 2.03*H 07/15/18 10:25: Lactic Acid Level 1.60 Objective Exam Vital Signs Date Time Temp Pulse Resp B/P (MAP) Pulse Ox O2 Delivery O2 Flow Rate FiO2 07/16/18 15:55 95.9 73 20 137/63 (87) 97 Room Air 07/16/18 12:00 98.9 83 16 142/63 (89) 96 Room Air 07/16/18 08:08 96.0 89 14 138/78 (98) 92 Room Air 07/16/18 03:55 97.3 74 20 143/66 (91) 98 Room Air 07/15/18 23:40 97.5 72 20 125/61 (82) 95 Room Air 07/15/18 20:00 07/15/18 19:10 96.4 89 20 132/75 (94) 97 Room Air I & O 07/16/18 07:00 Intake Total 2330 ml Output Total 930 ml Balance 1400 ml Capillary Refill : Less Than 3 Seconds General Appearance: No Apparent Distress, Obese HEENT: PERRL/EOMI, Pharynx Normal Respiratory: Lungs Clear, No Respiratory Distress Cardiovascular: Regular Rate, Rhythm, No Murmur Gastrointestinal: non tender, soft; No distended Results Lab Laboratory Tests 07/15/18 20:16: Glucometer 268H 07/16/18 04:00: White Blood Count 3.9L, Red Blood Count 3.10L, Hemoglobin 10.1L, Hematocrit 32L , Mean Corpuscular Volume 103H, Mean Corpuscular Hemoglobin 33, Mean Corpuscular Hemoglobin Concent 32, Red Cell Distribution Width 12.9, Platelet Count 140, Mean Platelet Volume 9.3, Neutrophils (%) (Auto) 57, Lymphocytes (%) (Auto) 27, Monocytes (%) (Auto) 11, Eosinophils (%) (Auto) 4, Basophils (%) ( Auto) 1, Neutrophils # (Auto) 2.3, Lymphocytes # (Auto) 1.1, Monocytes # (Auto) 0.4, Eosinophils # (Auto) 0.2, Basophils # (Auto) 0.0, Sodium Level 142, Potassium Level 4.2, Chloride Level 112H, Carbon Dioxide Level 21, Anion Gap 9, Blood Urea Nitrogen 18, Creatinine 0.70, Estimat Glomerular Filtration Rate > 60 , BUN/Creatinine Ratio 26, Glucose Level 135H, Calcium Level 8.2L, Corrected Calcium 9.4, Total Bilirubin 0.3, Aspartate Amino Transf (AST/SGOT) 14, Alanine Aminotransferase (ALT/SGPT) 10, Alkaline Phosphatase 65, Total Protein 5.3L, Albumin 2.5L 07/16/18 10:55: Glucometer 160H 07/16/18 15:54: Glucometer 202H Microbiology 07/15/18 Blood Culture - Preliminary, Resulted No growth 07/15/18 Urine Culture - Preliminary, Resulted Proteus mirabilis Assessment/Plan Assessment/Plan Assessment/Plan 1. Rectal bleed, hemoglobin dropped slightly (most likely just dilutional). Per family unless it is a large amount of bleeding (and maybe not even then) will continue to monitor and avoid surgery or colonoscopy. 2. Urinary tract infection consideration to urosepsis 3. Decubitus ulcer sacral region 4. Diabetes mellitus Clinical Quality Measures DVT/VTE Risk/Contraindication: Risk Factor Score Per Nursin RFS Level Per Nursing on Admit: 4+=Very High CASSANDRA RONQUILLO DO Jul 16, 2018 16:45
[2018-07-16 19:55] VITALS: BP 136/62
[2018-07-16] MEDS: clonazePAM 1 MG (KlonoPIN) TAB PO SCH (20:16)
[2018-07-16] MEDS: FAMOTIDINE 20 MG (PEPCID) TABLET PO SCH (20:16)
[2018-07-16] MEDS: inSUlin DETERMIR 1 UNIT/0.01 ML (LEVEMIR) CHARGE PER UNIT SQ SCH (20:17)
[2018-07-17] VITALS: BP 150/67
[2018-07-17] MEDS: NS IV 1000 ML 1,000 ML IV SCH (02:56)
[2018-07-17 04:00] VITALS: BP 162/73
[2018-07-17] MEDS: inSUlin ASPART (NovoLOG) 1 UNIT/0.01 ML (CHARGE PER UNIT) SC SCH ×2 (05:44→11:32)
[2018-07-17] MEDS: risperiDONE 0.25 MG (RisperDAL) TAB PO SCH (05:44)
--- NOTE | 2018-07-17 07:36 | Progress Note (SOAP) ---
Subjective Date Seen by a Provider: Jul 17, 2018 Time Seen by a Provider: 07:30 Subjective/Events-last exam Patient slept well throughout the night. She is taking oral medicines and taking fluids without difficulty. On the perineum she is getting turned every 2 hours along with cleansing twice daily with thorough drying followed by butt paste. Focused Exam Lactate Level 07/15/18 08:00: Lactic Acid Level 2.03*H 07/15/18 10:25: Lactic Acid Level 1.60 Objective Exam Vital Signs Date Time Temp Pulse Resp B/P (MAP) Pulse Ox O2 Delivery O2 Flow Rate FiO2 07/17/18 04:00 98.0 67 16 162/73 (102) 96 Room Air 07/17/18 00:00 98.0 67 16 150/67 (94) 96 Room Air 07/16/18 19:55 97.6 82 20 136/62 (86) 95 Room Air 07/16/18 15:55 95.9 73 20 137/63 (87) 97 Room Air 07/16/18 12:00 98.9 83 16 142/63 (89) 96 Room Air 07/16/18 08:08 96.0 89 14 138/78 (98) 92 Room Air I & O 07/17/18 07:00 Intake Total 870 ml Output Total 500 ml Balance 370 ml Capillary Refill : Less Than 3 Seconds General Appearance: No Apparent Distress Neck: Supple Respiratory: Lungs Clear Cardiovascular: Regular Rate, Rhythm Results Lab Laboratory Tests 07/16/18 10:55: Glucometer 160H 07/16/18 15:54: Glucometer 202H 07/16/18 19:55: Glucometer 257H 07/17/18 05:34: Glucometer 63L Microbiology 07/15/18 Blood Culture - Preliminary, Resulted No growth 07/15/18 Urine Culture - Preliminary, Resulted Proteus mirabilis Assessment/Plan Assessment/Plan Assess & Plan/Chief Complaint 1. Urinary tract infection consideration to urosepsis -patient placed on Rocephin -Urine culture pending -IV fluids initiated 07/16 -Day #2 Rocephin -awaiting culture report from urine 07/17 -Urine culture revealed Proteus with sensitivity pending. Blood culture negative Day number 3 Rocephin 2. Rectal bleed with history of stool stuck in the anal region -consultation with surgery 07/16 -H/H stable -Dr Turk's recommendations appreciated. 07/17 -No further bleeding noted per rectum 3. Decubitus ulcer sacral region -Consult wound care 4. Diabetes mellitus -Continue with diabetic meds and also use sliding scale insulin Clinical Quality Measures Admission Status Admission Dx 1. Urinary tract infection consideration to urosepsis -patient placed on Rocephin -Urine culture pending -IV fluids initiated 2. Rectal bleed with history of stool stuck in the anal region -consultation with surgery 3. Decubitus ulcer sacral region -Consult wound care 4. Diabetes mellitus -Continue with diabetic meds and also use sliding scale insulin DVT/VTE Risk/Contraindication: Risk Factor Score Per Nursin RFS Level Per Nursing on Admit: 4+=Very High EFRAIN HIDALGO MD Jul 17, 2018 07:36
[2018-07-17 08:00] VITALS: BP 140/65
[2018-07-17] MEDS: cefTRIAXone 1 GM/NS 50 ML IVPB IV SCH ×2 (09:41)
[2018-07-17] MEDS: amLODIPine 5 MG (NORVASC) TAB PO SCH (09:41)
[2018-07-17] MEDS: CALCIUM CARB + VIT D 600 MG (CALCARB + D) TAB PO SCH (09:41)
[2018-07-17] MEDS: LACTOBACILLUS ACIDOPHILUS (PROBIOTIC) CAPSULE PO SCH (09:41)
[2018-07-17] MEDS: clonazePAM 0.5 MG (KlonoPIN) TAB PO SCH ×2 (09:41→14:49)
[2018-07-17] MEDS: HYDROcodone/APAP 5 MG/325 MG (LORTAB) TAB PO SCH (09:42)
[2018-07-17] MEDS: CARVEDILOL 12.5 MG (COREG) TABLET PO SCH (09:42)
[2018-07-17] MEDS: MULTIVIT W/MINERALS TAB (THERAGRAN M) PO SCH (09:42)
[2018-07-17] MEDS: ASCORBIC ACID (VIT C) 500 MG TABLET PO SCH (09:42)
[2018-07-17] MEDS: ASPIRIN 81 MG CHEW (CHILDREN'S ASA) PO SCH (09:42)
[2018-07-17] MEDS ORDERED: ZINC OXIDE 16% OINT (BUTT PASTE) 113 GM TUBE TOP SCH (10:00)
--- NOTE | 2018-07-17 10:25 | Progress Note ---
Subjective Time Seen by a Provider: 09:41 Subjective/Events-last exam Pt seen and examined, denies abdominal pain. Nurse states she has not had anymore bloody BM's. Review of Systems General: No Chills, No Night Sweats Pulmonary: No Dyspnea, No Cough Cardiovascular: No: Chest Pain, Palpitations Gastrointestinal: No: Nausea, Vomiting Focused Exam Lactate Level 07/15/18 08:00: Lactic Acid Level 2.03*H 07/15/18 10:25: Lactic Acid Level 1.60 Objective Exam Vital Signs Date Time Temp Pulse Resp B/P (MAP) Pulse Ox O2 Delivery O2 Flow Rate FiO2 07/17/18 08:00 97.7 80 16 140/65 (90) 97 Room Air 07/17/18 04:00 98.0 67 16 162/73 (102) 96 Room Air 07/17/18 00:00 98.0 67 16 150/67 (94) 96 Room Air 07/16/18 19:55 97.6 82 20 136/62 (86) 95 Room Air 07/16/18 15:55 95.9 73 20 137/63 (87) 97 Room Air 07/16/18 12:00 98.9 83 16 142/63 (89) 96 Room Air I & O 07/17/18 07:00 Intake Total 1220 ml Output Total 1000 ml Balance 220 ml Capillary Refill : Less Than 3 Seconds General Appearance: No Apparent Distress, Obese HEENT: PERRL/EOMI, Pharynx Normal Respiratory: Lungs Clear, No Accessory Muscle Use Cardiovascular: Regular Rate, Rhythm, Normal Peripheral Pulses Gastrointestinal: non tender, soft; No distended; other (Inspection with nurse in room while pt was being rolled to the side, no bleeding, no obvious anal tear and no hemorrhoids visualized) Results Lab Laboratory Tests 07/16/18 10:55: Glucometer 160H 07/16/18 15:54: Glucometer 202H 07/16/18 19:55: Glucometer 257H 07/17/18 05:34: Glucometer 63L Microbiology 07/15/18 Blood Culture - Preliminary, Resulted No growth 07/15/18 Urine Culture - Preliminary, Resulted Proteus mirabilis Assessment/Plan Assessment/Plan Assessment/Plan Rectal bleed - appears to have stopped UTI Pt appears stable, no changes. Would continue current care and avoid surgery. I will follow along while pt is in the hospital. Miralax may help pt and increased fluids. Clinical Quality Measures DVT/VTE Risk/Contraindication: Risk Factor Score Per Nursin RFS Level Per Nursing on Admit: 4+=Very High CASSANDRA RONQUILLO DO Jul 17, 2018 10:25
--- NOTE | 2018-07-17 11:50 | Discharge Inst-Skilled Nursing ---
Discharge Inst-Skilled NF Patient Instructions Patient Instructions: Will need twice daily soap and water cleaning with butt paste to follow after completely dry. Consult/Follow Up/Orders Follow Up Appt.: Dr Hidalgo 1 week Skilled NF Admit to: Via [facility] Certification ([facility]) I certify that SNF services are required to be given on an inpatient basis because of the above named patient's need for fdc care on a continuing basis for the conditions(s) for which he/she was receiving inpatient hospital services prior to his/her transfer to the [facility]. Fdc Facility Order: Nursing Services, Logging Specialist-Evaluate & Treat, Physical Therapy-Evaluate & Treat, Wound Care-Eval/Treat Discharge Diet: Regular Diet Daily Activity as Tolerated: Yes New & Resume Previous Orders Efrain Hidalgo Jul 17, 2018 11:49 EFRAIN HIDALGO MD Jul 17, 2018 11:50
--- NOTE | 2018-07-17 11:51 | Discharge Summary ---
Diagnosis/Chief Complaint Date of Admission Jul 15, 2018 at 09:52 Date of Discharge Jul 17, 2018 Discharge Date: Jul 17, 2018 Discharge Time: 14:00 Admission Diagnosis Admission Diagnosis 1 Discharge Diagnosis 1. Reason Hospital Visit 83-year-old female admitted through the emergency department after being sent over by EMS from [facility] She apparently has been with rectal bleed. Her daughter does also report she has been somewhat constipated. She has not had any issues with any fever She recently returns from [facility]. She has been placed on medications that it helped her tremendously with her agitation. She spends a lot of time relaxing and taking naps. She has been also treated for UTIs in the past. She currently denies any significant pain. Discharge Summary Hospital Course Hospital Course see PN Labs Laboratory Tests 07/15/18 08:00: Red Blood Count 3.40L, Hemoglobin 11.1L, Mean Corpuscular Volume 102H, Prothrombin Time 15.3H, Urine Specific [place] 1.005L, Urine Protein 2+H, Urine Leukocyte Esterase 3+H, Urine RBC (Auto) 2+H, Urine WBC >100H, Chloride Level 108H, Blood Urea Nitrogen 20H, Glucose Level 167H, Lactic Acid Level 2.03*H, Total Protein 5.8L, Albumin 2.7L 07/15/18 10:25: 07/15/18 20:16: Glucometer 268H 07/16/18 04:00: Red Blood Count 3.10L, Hemoglobin 10.1L, Mean Corpuscular Volume 103H, Chloride Level 112H, Glucose Level 135H, Total Protein 5.3L, Albumin 2.5L, White Blood Count 3.9L, Hematocrit 32L, Calcium Level 8.2L 07/16/18 10:55: Glucometer 160H 07/16/18 15:54: Glucometer 202H 07/16/18 19:55: Glucometer 257H 07/17/18 05:34: Glucometer 63L 07/17/18 10:50: Glucometer 113H Procedures None. Discharge Physical Examination Allergies: Coded Allergies: diphenhydramine HCl (Unverified Allergy, Unknown, 04/28/11) Vitals & I&Os Vital Signs Date Time Temp Pulse Resp B/P (MAP) Pulse Ox O2 Delivery O2 Flow Rate FiO2 07/17/18 08:00 97.7 80 16 140/65 (90) 97 Room Air General Appearance: Alert Respiratory: Clear to Auscultation Cardiovascular: Regular Rate Abdominal: Soft Discharge Home Medications Reviewed and agree with Discharge Medication list on patient's Discharge Instruction sheet Instructions to Patient/Family Please see electronic discharge instructions given to patient. Clinical Quality Measures DVT/VTE Risk/Contraindication: Risk Factor Score Per Nursin RFS Level Per Nursing on Admit: 4+=Very High EFRAIN HIDALGO MD Jul 17, 2018 11:51
[2018-07-17 12:21] VITALS: BP 143/67
[2018-07-17] MEDS: risperiDONE 1 MG (RisperDAL) TAB PO SCH (14:49)
[2018-07-17 15:09] VITALS: BP 143/67
== END 2018-07-17 15:00 | DRG 690 ==
LOC: EDUNIT# 07:38 → ER 07:40 → 4TH 09:52
PROVIDERS: ADMIT Family Medicine; ATTEND Family Medicine
DX: N39.0 Urinary tract infection, site not specified (principal); K62.5 Hemorrhage of anus and rectum; L89.152 Pressure ulcer of sacral region, stage 2; L89.611 Pressure ulcer of right heel, stage 1; L89.621 Pressure ulcer of left heel, stage 1; E11.621 Type 2 diabetes mellitus with foot ulcer; E11.622 Type 2 diabetes mellitus with other skin ulcer; Z66 Do not resuscitate; G30.9 Alzheimer's disease, unspecified; F02.80 Dementia in other diseases classified elsewhere, unspecified severity, without behavioral disturbance, psychotic disturbance, mood disturbance, and anxiety; I10 Essential (primary) hypertension; J44.9 Chronic obstructive pulmonary disease, unspecified; K59.00 Constipation, unspecified; K21.9 Gastro-esophageal reflux disease without esophagitis; M10.9 Gout, unspecified; F41.9 Anxiety disorder, unspecified; F32.9 Major depressive disorder, single episode, unspecified; Z87.891 Personal history of nicotine dependence; Z79.4 Long term (current) use of insulin; Z95.5 Presence of coronary angioplasty implant and graft
CPT/HCPCS: 36415; 51702; 71045; 80053; 81000; 82962; 83605; 85025; 85610; 85730; 87040; 87077; 87088; 87186; 96361; 96365

== ENCOUNTER → 2019-09-23 | Outpatient (CLI) | payer MEDICARE, MEDICAID ==
[~2019-09-23] MED LIST changes: +AMLO5TAB9 PO; +ASCO-262 PO; +CLON0.5T13 PO; +CLON1TAB13 PO; +DIME92CR TP; +DOCU-143 PO; +HYDR30CR71 TOP; +HYOS0.1281 PO; +INSU100V16 SQ; +INSU100V5 SQ; +L. A1TAB10 PO; +LOPE2TAB34 PO; +LORA10TA7 PO; +MAG-10 PO; +MULT-166 PO; +MUPI22OI2 TP; +NITR100C10 PO; +NYST1POW22 TOP; +PROM25SU43 RC; +RISP0.2517 PO; +RISP0.5T3 PO; +RISP1TAB3 PO
[2019-09-23 00:47] LABS: BILIRUBIN,URINE NEGATIVE (NEGATIVE); CLARITY,URINE CLOUDY; COLOR,URINE YELLOW; GLUCOSE, URINE (UA) NEGATIVE (NEGATIVE); KETONES,URINE NEGATIVE (NEGATIVE); LEUKOCYTE ESTERASE ,URINE TRACE (NEGATIVE); NITRITE,URINE POSITIVE (NEGATIVE); PROTEIN,URINE 1+ (NEGATIVE)
[2019-09-23 00:56] LABS: BACTERIA,URINE LARGE /HPF; CALCIUM OXALATE CRYSTALS,UR MODERATE /LPF; WBC,URINE 25-50 /HPF
== END ==
LOC: CVS 00:41
PROVIDERS: ATTEND Family Medicine
DX: Z51.81 Encounter for therapeutic drug level monitoring (principal); K62.5 Hemorrhage of anus and rectum; N39.0 Urinary tract infection, site not specified; I67.89 Other cerebrovascular disease; E11.40 Type 2 diabetes mellitus with diabetic neuropathy, unspecified; R52 Pain, unspecified; M62.81 Muscle weakness (generalized); M20.10 Hallux valgus (acquired), unspecified foot; F41.9 Anxiety disorder, unspecified; K21.0 Gastro-esophageal reflux disease with esophagitis; E78.5 Hyperlipidemia, unspecified; D64.9 Anemia, unspecified; K30 Functional dyspepsia; L25.9 Unspecified contact dermatitis, unspecified cause; B35.9 Dermatophytosis, unspecified; L85.1 Acquired keratosis [keratoderma] palmaris et plantaris; I70.209 Unspecified atherosclerosis of native arteries of extremities, unspecified extremity; G30.9 Alzheimer's disease, unspecified; K56.600 Partial intestinal obstruction, unspecified as to cause; F29 Unspecified psychosis not due to a substance or known physiological condition; I10 Essential (primary) hypertension; R26.89 Other abnormalities of gait and mobility; Z87.440 Personal history of urinary (tract) infections; Z91.81 History of falling
CPT/HCPCS: 81000; 87077; 87088; 87186

== ENCOUNTER 2019-10-03 07:35 | Inpatient (IN) | payer MEDICARE, MEDICAID ==
[~2019-10-03 07:35] MED LIST changes: -CLON0.5T13 PO; +CLON0.5T4 PO; -DIME92CR TP; -DOCU-143 PO; -HYDR30CR71 TOP; -LORA10TA7 PO; -MUPI22OI2 TP; -NYST1POW22 TOP; -RISP0.2517 PO; +SIMV10TA26 PO
[2019-10-03] MEDS ORDERED: NS IV 1000 ML 1,000 ML IV SCH (07:44)
[2019-10-03] MEDS ORDERED: VANCOMYCIN INJECTION 1,000 MG in NS (IVPB) 250 ML IV ONE (07:45)
[2019-10-03] MEDS ORDERED: CEFEPIME INJECTION 1,000 MG in WATER (STERILE) FOR INJECTION 10 ML IV ONE (07:45)
--- NOTE | 2019-10-03 07:50 | ED Neurological Problem ---
General Stated Complaint: BLOOD SUGAR ISSUES;UNRESPONSIVE Source: patient Exam Limitations: no limitations History of Present Illness Date Seen by Provider: Oct 03, 2019 Time Seen by Provider: 07:32 Initial Comments [facility] with chief complaint she was unresponsive and had a blood sugar in the 30s. They put some sugar in her mouth and gave her a shot of glucagon. She received a shot of glucagon yesterday. She was not improving so EMS arrived started an IV and hung a bag of D 10. EMS had initial blood sugar of 20. 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 Patient is a history of cerebrovascular disease, dementia and is on Risperdal. Gives no meaningful history or review of systems. Allergies and Home Medications Allergies Coded Allergies: diphenhydramine HCl (Unverified Allergy, Unknown, 04/28/11) Home Medications Amlodipine Besylate 5 Mg Tablet, 5 MG PO DAILY, (Reported) Ascorbate Calcium 500 Mg Tablet, 500 MG PO DAILY, (Reported) Aspirin 81 Mg Tablet.dr, 81 MG PO DAILY, (Reported) Calcium Carbonate/Vitamin D3 1 Each Tablet, 1 TAB PO DAILY, (Reported) Carvedilol 12.5 Mg Tablet, 12.5 MG PO DAILY, (Reported) Clonazepam 0.5 Mg Tablet, 0.5 MG PO 0800,1400, (Reported) Clonazepam 1 Mg Tablet, 1 MG PO HS, (Reported) Famotidine 20 Mg Tablet, 20 MG PO 2100, (Reported) Hydrocodone Bit/Acetaminophen 1 Each Tablet, 1 TAB PO BID, (Reported) Insulin Aspart 100 Unit/1 Ml Susp, 0-12 UNIT SQ TIDAC, (Reported) 60-150 = 0 UNITS 151-200 =4 UNITS 201-250 =6 UNITS 251-300 =8 UNITS 301-350 =10 UNITS 351-400= 12 UNITS Insulin Determir 1,000 Units/10 Ml Soln, 25 UNITS SQ HS, (Reported) L. Acidophilus/L.bulgaricus 1 Each Tablet, 1 TAB PO DAILY, (Reported) Loperamide HCl 2 Mg Tablet, 2 MG PO QID PRN for DIARRHEA, (Reported) Mag Hydrox/Al Hydrox/Simeth 355 Ml Oral.susp, 30 ML PO Q4H PRN for INDIGESTION, (Reported) Magnesium Hydroxide 400 Mg/5 Ml Oral.susp, 30 ML PO DAILY PRN for CONSTIPATION- 7TH LINE, (Reported) Multivitamin with Minerals 1 Each Tablet, 1 TAB PO DAILY, (Reported) Nitrofurantoin Monohyd/M-Cryst 100 Mg Capsule, 100 MG PO 1200, (Reported) Promethazine HCl 25 Mg Supp.rect, 25 MG RC Q4H PRN for NAUSEA/VOMITING-2ND LINE, (Reported) Risperidone 1 Mg Tablet, 1 MG PO 1400,1800, (Reported) Risperidone 0.5 Mg Tablet, 0.5 MG PO 0600, (Reported) Patient Home Medication List Home Medication List Reviewed: Yes Review of Systems Review of Systems Constitutional: see HPI (review of systems gathered from caregivers and notes); No diaphoresis, No fever Eyes: Denies Blindness, Denies Blurred Vision Ears, Nose, Mouth, Throat: denies ear discharge, denies mouth pain Respiratory: No cough, No short of breath, No wheezing Cardiovascular: No Hx of Intervention, No palpitations All Other Systems Reviewed Negative Unless Noted: Yes Past Ozjgkfj-Dzlbjz-Fimcyr Hx Patient Social History Alcohol Use: Denies Use Recreational Drug Use: No Smoking Status: Former Smoker Type Used: Cigarettes Former Smoker, Quit: February 20, 2016 Recent Hopitalizations: Yes Immunizations Up To Date Tetanus Booster (TDap): Unknown PED Vaccines UTD: No Date of Pneumonia Vaccine: Jun 24, 2016 Date of Influenza Vaccine: Jun 05, 2018 Seasonal Allergies Seasonal Allergies: No Past Medical History Surgeries: Yes (BOWEL OBSTRUCTIONS) Abdominal, Bowel Surgery, Coronary Stent, Gallbladder, Hysterectomy, Orthopedic Respiratory: Yes COPD Currently Using CPAP: No Currently Using BIPAP: No Cardiac: Yes Hypertension Neurological: Yes (alzheimers) Dementia 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 History: Menopausal Sexually Transmitted Disease: No HIV/AIDS: No Genitourinary: Yes Bladder Infection Gastrointestinal: Yes Gastroesophageal Reflux Musculoskeletal: Yes (PT IS NON-AMBULATORY) Arthritis, Gout Endocrine: Yes (OBESITY) Diabetes, Non-Insulin dep HEENT: No Cancer: No Psychosocial: Yes Anxiety, Depression Integumentary: Yes (DECUBITUS ULCERS ON BUTTOCKS) Blood Disorders: Yes (anemia) Adverse Reaction/Blood Tranf: No Family Medical History Abdominal aortic aneurysm Myocardial infarction G8 SISTER, Cancer, CAD Over 55 Years Old Physical Exam Vital Signs Vital Signs - First Documented 10/03/19 07:35 Temp 36.2 Pulse 78 Resp 30 B/P (MAP) 149/75 (99) Pulse Ox 99 O2 Delivery Room Air Capillary Refill : Height, Weight, BMI Height: 5'5.00" Weight: 220lbs. 3.5oz. 99.783004tc; 36.7 BMI Method:Estimated General Appearance: moderate distress, obese HEENT: PERRL/EOMI, normal ENT inspection, TMs normal, other (oropharynx is dry and crusted with sugar crystals but no other foreign objects are noted) Neck: non-tender, full range of motion, supple, normal inspection Respiratory: lungs clear, normal breath sounds, no respiratory distress, no accessory muscle use Cardiovascular: normal peripheral pulses, regular rate, rhythm Peripheral Pulses: 2+ Radial Pulses (R), 2+ Radial Pulses (L) Gastrointestinal: normal bowel sounds, non tender, soft Neurologic/Psychiatric: alert, other (counting, moaning, non-cooperative) Crainal Nerves: PERRL Motor/Sensory: no motor deficit, no sensory deficit Skin: other (blisters all over her body with open shallow ulcers. Negative for Nikolsky sign. No significant erythema or induration, fluctuance or purulence. In various stages of dressing and wound care.) Progress/Results/Core Measures Results/Orders Lab Results Laboratory Tests Test 10/03/19 07:41 10/03/19 07:58 10/03/19 08:20 10/03/19 08:26 Range/Units Glucometer 161 H 141 H 70-110 MG/DL White Blood Count 5.5 4.3-11.0 10^3/uL Red Blood Count 2.90 L 4.35-5.85 10^6/uL Hemoglobin 9.1 L 11.5-16.0 G/DL Hematocrit 29 L 35-52 % Mean Corpuscular Volume 100 H 80-99 FL Mean Corpuscular Hemoglobin 31 25-34 PG Mean Corpuscular Hemoglobin Concent 32 32-36 G/DL Red Cell Distribution Width 14.0 10.0-14.5 % Platelet Count 243 130-400 10^3/uL Mean Platelet Volume 8.9 7.4-10.4 FL Neutrophils (%) (Auto) 57 42-75 % Lymphocytes (%) (Auto) 18 12-44 % Monocytes (%) (Auto) 6 0-12 % Eosinophils (%) (Auto) 20 H 0-10 % Basophils (%) (Auto) 0 0-10 % Neutrophils # (Auto) 3.1 1.8-7.8 X 10^3 Lymphocytes # (Auto) 1.0 1.0-4.0 X 10^3 Monocytes # (Auto) 0.3 0.0-1.0 X 10^3 Eosinophils # (Auto) 1.1 H 0.0-0.3 10^3/uL Basophils # (Auto) 0.0 0.0-0.1 10^3/uL Neutrophils % (Manual) 57 % Lymphocytes % (Manual) 10 % Monocytes % (Manual) 6 % Eosinophils % (Manual) 27 % Basophils % (Manual) 0 % Band Neutrophils 0 % Blood Morphology Comment NORMAL Prothrombin Time 16.1 H 12.2-14.7 SEC INR Comment 1.2 0.8-1.4 Activated Partial Thromboplast Time 32 24-35 SEC Sodium Level 143 135-145 MMOL/L Potassium Level 3.0 L 3.6-5.0 MMOL/L Chloride Level 112 H 98-107 MMOL/L Carbon Dioxide Level 24 21-32 MMOL/L Anion Gap 7 5-14 MMOL/L Blood Urea Nitrogen 12 7-18 MG/DL Creatinine 0.67 0.60-1.30 MG/DL Estimat Glomerular Filtration Rate > 60 BUN/Creatinine Ratio 18 Glucose Level 135 H 70-105 MG/DL Calcium Level 7.5 L 8.5-10.1 MG/DL Corrected Calcium 9.1 8.5-10.1 MG/DL Total Bilirubin 0.2 0.1-1.0 MG/DL Aspartate Amino Transf (AST/SGOT) 20 5-34 U/L Alanine Aminotransferase (ALT/SGPT) 12 0-55 U/L Alkaline Phosphatase 91 40-136 U/L Troponin I < 0.028 <0.028 NG/ML B-Type Natriuretic Peptide 122.7 H <100.0 PG/ML Total Protein 5.2 L 6.4-8.2 GM/DL Albumin 2.0 L 3.2-4.5 GM/DL Urine Color YELLOW Urine Clarity CLOUDY Urine pH 5.5 5-9 Urine Specific [place] 1.025 H 1.016-1.022 Urine Protein 1+ H NEGATIVE Urine Glucose (UA) NEGATIVE NEGATIVE Urine Ketones NEGATIVE NEGATIVE Urine Nitrite POSITIVE NEGATIVE Urine Bilirubin NEGATIVE NEGATIVE Urine Urobilinogen 0.2 < = 1.0 MG/DL Urine Leukocyte Esterase 2+ H NEGATIVE Urine RBC (Auto) 1+ H NEGATIVE Urine RBC 2-5 H /HPF Urine WBC >100 H /HPF Urine Squamous Epithelial Cells 0-2 /HPF Urine Crystals NONE /LPF Urine Bacteria LARGE H /HPF Urine Casts NONE /LPF Urine Mucus NEGATIVE /LPF Urine Culture Indicated CULTURE PENDING Micro Results Microbiology 10/03/19 Influenza Types A,B Antigen (BRUNILDA) - Final, Complete My Orders Orders - MERLIN SUMMERS Cbc With Automated Diff (10/03/19 07:44) Comprehensive Metabolic Panel (10/03/19 07:44) Blood Culture (10/03/19 07:44) Sputum Culture (10/03/19 07:44) Urinalysis (10/03/19 07:44) Urine Culture (10/03/19 07:44) Protime With Inr (10/03/19 07:44) Partial Thromboplastin Time (10/03/19 07:44) Chest 1 View, Ap/Pa Only (10/03/19 07:44) Ed Iv/Invasive Line Start (10/03/19 07:44) Ed Iv/Invasive Line Start (10/03/19 07:44) Ekg Tracing (10/03/19 07:44) Troponin I (10/03/19 07:44) O2 (10/03/19 07:44) Influenza A And B Antigens (10/03/19 07:44) Ns Iv 1000 Ml (Sodium Chloride 0.9%) (10/03/19 07:44) Cefepime Injection (Maxipime Injection) (10/03/19 07:45) Vancomycin Injection (Vancomycin Injecti (10/03/19 07:45) BNP (10/03/19 07:44) Accucheck Stat ONCE (10/03/19 07:48) Accucheck Stat ONCE (10/03/19 08:15) Manual Differential (10/03/19 07:58) Catheter(Urinary) Insert & Ass 03,15 (10/03/19 08:11) Ct Head Wo (10/03/19 08:27) Potassium Cl 10meq/50ml Ivpb (Kcl 10 Meq (10/03/19 08:30) Fentanyl Injection (Sublimaze Injection (10/03/19 08:29) Fentanyl Injection (Sublimaze Injection (10/03/19 08:45) Risperidone Tablet (Risperdal Tablet) (10/03/19 08:45) Oseltamivir 75 Mg Capsule (Tamiflu 75 (10/03/19 09:00) Ceftriaxone For Iv Use (Rocephin For I (10/03/19 09:00) Fentanyl Injection (Sublimaze Injection (10/03/19 09:15) Medications Given in ED Current Medications Medications Dose Ordered Sig/Luis A Route Start Time Stop Time Status Last Admin Dose Admin Ceftriaxone Sodium 1000 mg/ Sterile Water 10 ml @ 200 mls/hr ONCE ONCE IV 10/03/19 09:00 10/03/19 09:02 DC 10/03/19 09:08 200 MLS/HR Fentanyl Citrate 25 mcg ONCE ONCE IVP 10/03/19 08:45 10/03/19 08:46 DC 10/03/19 08:39 25 MCG Vital Signs/I&O 10/03/19 07:35 Temp 36.2 Pulse 78 Resp 30 B/P (MAP) 149/75 (99) Pulse Ox 99 O2 Delivery Room Air Progress Progress Note #1: Time: 08:25 Progress Note We'll initiate a Martines catheter to get a urine specimen and accurate assessment of input and output. Give her a liter of fluids. She is not tachycardic nor does she have a fever however these are not going to be reliable signs of infection given her history of hypoglycemia. We discontinued the D10 as her blood sugar was 160 and we'll repeat the blood sugar in about half an hour to 45 minutes. In anticipation of a possible skin or soft tissue infection related to her multiple various blistering wounds will cover her with cefepime and vancomycin and obtain blood cultures. Suspect some kind of pemphigus/pemphigoid? Plan to obtain EKG, troponin and BNP given her swollen appearance of her lower extremities. Plan to get CT of head to rule out intracranial pathology may be masked by the hyperglycemia. Her hemoglobin is near her baseline of 10 and will plan on giving her 10 mEq of potassium. The patient appears generally uncomfortable so plan to give her 25 g of fentanyl. If we have Risperdal then we can give her her morning dose 0.25 mg. Repeat blood sugar 141. Echocardi[address] Ramsay: EF 45-50%. Posterior basal hypokinesis. Mild mitral regurgitation. She also has a history of large sacral ulcer. Followed by Dr. Reina, wound care. Progress Note #2: Time: 08:44 Progress Note Patient has influenza and a UTI. When her family arrives we will discuss goals of care. We'll start Tamiflu. 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 No clinically relevant ST elevation or depression. Diagnostic Imaging Diagonstic Imaging: Xray Plain Films/CT/US/NM/MRI: chest Comments [facility], [place] NAME: CHOCOLILY PANG MED REC#: [id number] PT STATUS: REG ER : 1935 PHYSICIAN: MERLIN SUMMERS MD ADMIT DATE: 10/03/19/ER Draft Date of Exam:10/03/19 CHEST 1 VIEW, AP/PA ONLY INDICATION: Low blood sugar FINDINGS: Portable view of the chest is compared to exam from 07/15/2018. Heart size appears a little more prominent than previously. It is probably due to the portable technique. There is calcification of the aorta. The vascularity is normal. There are no pleural effusions. Degenerative changes present in both shoulders. IMPRESSION: 1. Arteriosclerosis. 2. The heart size appears larger. This may be due to differences in technique. Dictated on workstation # [id number] Dict: 10/03/19 0856 Trans: 10/03/19 0903 CV [id number] Interpreted by: DANIEL DAY MD Electronically signed by: Reviewed: Reviewed by Me Diagonstic Imaging: CT Plain Films/CT/US/NM/MRI: head Comments [facility] [place] NAME: LILY WILHELM MED REC#: [id number] PT STATUS: REG ER : 1935 PHYSICIAN: MERLIN SUMMERS MD ADMIT DATE: 10/03/19/ER Draft Date of Exam:10/03/19 CT HEAD WO PROCEDURE: CT head without contrast. TECHNIQUE: Multiple contiguous axial images were obtained through the brain without the use of intravenous contrast. Auto Exposure Controls were utilized during the CT exam to meet ALARA standards for radiation dose reduction. INDICATION: Weakness. No prior studies are available for comparison. The ventricles and sulci are prominent consistent with cerebral atrophy. There is significant periventricular hypodensity noted consistent with senescent change and chronic microvascular ischemia. No sulcal effacement or midline shift is identified. No acute intra-axial or extra-axial hemorrhage is detected. Cisterns are patent. Visualized paranasal sinuses are clear. IMPRESSION: Chronic and senescent changes. No acute intracranial process is detected. Dictated on workstation # [id number] Dict: 10/03/19 09 Trans: 10/03/19 0904 MELISSA [id number] Interpreted by: EVIE LAGUNA MD Electronically signed by: Reviewed: Reviewed by Me Departure Communication (Admissions) Time/Spoke to Admitting Phy: 09:45 Discussed case lab imaging findings with Dr. Hidalgo and he agrees to take the patient. Impression Primary Impression: Hypoglycemia associated with diabetes Additional Impressions: UTI (urinary tract infection) Qualified Codes: N30.01 - Acute cystitis with hematuria Influenza B Disposition: ADMITTED INPATIENT Condition: Stable Admissions Decision to Admit Reason: Admit from ER (General) Decision to Admit/Date: Oct 03, 2019 Time/Decision to Admit Time: 09:00 Departure-Patient Inst. Referrals: EFRAIN HIDALGO MD (PCP/Family) Primary Care Physician MERLIN SUMMERS Oct 03, 2019 07:50
[2019-10-03 08:06] LABS: BASOPHILS % (AUTO) 0 % (0-10); EOSINOPHILS # (AUTO) 1.1 10^3/uL (0.0-0.3); EOSINOPHILS % (AUTO) 20 % (0-10); HEMATOCRIT 29 % (35-52); HEMOGLOBIN 9.1 G/DL (11.5-16.0); LYMPHOCYTES % (AUTO) 18 % (12-44); MEAN CORPUSCULAR HEMOGLOBIN 31 PG (25-34); MEAN CORPUSCULAR HGB CONC 32 G/DL (32-36); MEAN CORPUSCULAR VOLUME 100 FL (80-99); MEAN PLATELET VOLUME 8.9 FL (7.4-10.4); MONOCYTES # (AUTO) 0.3 X 10^3 (0.0-1.0); MONOCYTES % (AUTO) 6 % (0-12); NEUTROPHILS # (AUTO) 3.1 X 10^3 (1.8-7.8); NEUTROPHILS % (AUTO) 57 % (42-75); PLATELET COUNT 243 10^3/uL (130-400); WHITE BLOOD COUNT 5.5 10^3/uL (4.3-11.0)
[2019-10-03 08:20] LABS: INR 1.2 (0.8-1.4); PROTHROMBIN TIME PATIENT 16.1 SEC (12.2-14.7)
[2019-10-03 08:27] LABS: ALANINE AMINOTRANSFERASE 12 U/L (0-55); ALKALINE PHOSPHATASE 91 U/L (40-136); BILIRUBIN,TOTAL 0.2 MG/DL (0.1-1.0); BUN/CREATININE RATIO 18; CALCIUM 7.5 MG/DL (8.5-10.1); CARBON DIOXIDE 24 MMOL/L (21-32); CHLORIDE 112 MMOL/L (98-107); CREATININE SERUM 0.67 MG/DL (0.60-1.30); GFR ESTIMATED > 60; GLUCOSE 135 MG/DL (70-105); SODIUM 143 MMOL/L (135-145); TOTAL PROTEIN 5.2 GM/DL (6.4-8.2)
[2019-10-03] MEDS ORDERED: fentaNYL INJECTION 100 MCG/2 ML AMP ONE (08:29)
[2019-10-03] MEDS ORDERED: POTASSIUM CL 10MEQ/50ML IVPB 50 ML IV ONE (08:30)
[2019-10-03 08:33] LABS: BILIRUBIN,URINE NEGATIVE (NEGATIVE); CLARITY,URINE CLOUDY; COLOR,URINE YELLOW; GLUCOSE, URINE (UA) NEGATIVE (NEGATIVE); KETONES,URINE NEGATIVE (NEGATIVE); LEUKOCYTE ESTERASE ,URINE 2+ (NEGATIVE); NITRITE,URINE POSITIVE (NEGATIVE); PH,URINE 5.5 (5-9); PROTEIN,URINE 1+ (NEGATIVE)
[2019-10-03 08:42] LABS: BACTERIA,URINE LARGE /HPF; SQUAMOUS EPITHELIAL CELL,UR 0-2 /HPF; WBC,URINE >100 /HPF
[2019-10-03] MEDS ORDERED: fentaNYL INJECTION 100 MCG/2 ML AMP IVP ONE ×2 (08:45→09:15)
[2019-10-03] MEDS ORDERED: risperiDONE 0.25 MG (RisperDAL) TAB PO ONE (08:45)
[2019-10-03 08:46] LABS: BAND NEUTROPHILS 0 %; BASOPHILS % (MANUAL) 0 %; EOSINOPHILS % (MANUAL) 27 %; LYMPHOCYTES % (MANUAL) 10 %; MONOCYTES % (MANUAL) 6 %; NEUTROPHILS % (MANUAL) 57 %; RBC MORPH NORMAL
[2019-10-03] MEDS ORDERED: cefTRIAXone FOR IV USE 1,000 MG in WATER (STERILE) FOR INJECTION 10 ML IV ONE (09:00)
[2019-10-03] MEDS ORDERED: OSELTAMIVIR 75 MG (TAMIFLU) CAPSULE PO ONE (09:00)
--- NOTE | 2019-10-03 09:00 | NUR ---
Pt rolled with assitance from Dr. Roe to examine backside. Stage two ulcer noted to sacral area.
--- NOTE | 2019-10-03 09:04 | Diagnostic Imaging Report ---
PROCEDURE: CT head without contrast. TECHNIQUE: Multiple contiguous axial images were obtained through the brain without the use of intravenous contrast. Auto Exposure Controls were utilized during the CT exam to meet ALARA standards for radiation dose reduction. INDICATION: Weakness. No prior studies are available for comparison. The ventricles and sulci are prominent consistent with cerebral atrophy. There is significant periventricular hypodensity noted consistent with senescent change and chronic microvascular ischemia. No sulcal effacement or midline shift is identified. No acute intra-axial or extra-axial hemorrhage is detected. Cisterns are patent. Visualized paranasal sinuses are clear. IMPRESSION: Chronic and senescent changes. No acute intracranial process is detected. Dictated by: Dictated on workstation # [id number]
--- NOTE | 2019-10-03 09:04 | Diagnostic Imaging Report ---
INDICATION: Low blood sugar FINDINGS: Portable view of the chest is compared to exam from 07/15/2018. Heart size appears a little more prominent than previously. It is probably due to the portable technique. There is calcification of the aorta. The vascularity is normal. There are no pleural effusions. Degenerative changes present in both shoulders. IMPRESSION: 1. Arteriosclerosis. 2. The heart size appears larger. This may be due to differences in technique. Dictated by: Dictated on workstation # [id number]
[2019-10-03 10:45] VITALS: BP 188/81
[2019-10-03] MEDS ORDERED: ONDANSETRON 4 MG/2 ML (SDV) Z0FRAN IV PRN (10:45)
[2019-10-03] MEDS ORDERED: CATHETER FLUSH 10 ML SYR IV PRN (10:45)
--- NOTE | 2019-10-03 10:45 | NUR ---
Wound care nurse Kalia at bedside to assist this nurse with assessment of wounds and remediation for tx. Kalia suggest placing adaptic to all open areas and follow with Telfa and cling to areas of arms and legs. abdomen will receive adaptic followed by Telfa and abd pads with minimal tape use. He recommends badges be changed bid and as needed for drainage. All wounds cleaned and dressed at this time.
[2019-10-03] MEDS: [UNRECOGNIZED DRUG - OTHER] IV SCH ×4 (11:22→19:34)
[2019-10-03] MEDS: POTASSIUM CHLORIDE IV SCH ×4 (11:22→19:34)
[2019-10-03] MEDS: MICONAZOLE 2% POWDER (DESENEX AF) 90 GM TOP SCH ×2 (11:23→20:54)
[2019-10-03] MEDS: HYDROcodone/APAP 5 MG/325 MG (LORTAB) TAB PO PRN ×2 (11:23→20:52)
[2019-10-03] MEDS: inSUlin ASPART (NovoLOG) 1 UNIT/0.01 ML (CHARGE PER UNIT) SC SCH ×3 (11:23→20:53)
[2019-10-03] MEDS ORDERED: DIME92CR TP (12:00)
[2019-10-03] MEDS ORDERED: RISP0.2517 PO (12:00)
[2019-10-03] MEDS ORDERED: DOCU-143 PO (12:00)
[2019-10-03] MEDS ORDERED: LORA10TA7 PO (12:00)
[2019-10-03] MEDS ORDERED: HYDR30CR71 TOP (12:00)
[2019-10-03] MEDS ORDERED: NITR-65 PO (12:00)
[2019-10-03] MEDS ORDERED: ACET325T38 PO (12:00)
[2019-10-03] MEDS ORDERED: NYST1POW22 TOP (12:00)
[2019-10-03] MEDS ORDERED: MUPI22OI2 TP (12:00)
--- NOTE | 2019-10-03 12:06 | NUR ---
UPDATED MED REC WITH PHYSICIAN VISIT FROM FROM [facility]. I CALLED THE VERIFY THE MACROBID ORDER STARTED 09-30-18 IS FOR 10 DAYS. THE EXT MED HX HAS A RECENT FILL FOR FLUCONAZOLE HOWEVER IT IS NOT ON THE PHYSICIAN VISIT FORM AND WHEN I ASKED ABOUT IT THEY DO NOT SHOW IT A CURRENT MED.
[2019-10-03] MEDS: risperiDONE 0.25 MG (RisperDAL) TAB PO SCH ×2 (13:31→20:53)
[2019-10-03] MEDS: clonazePAM 0.5 MG (KlonoPIN) TAB PO SCH (13:31)
--- NOTE | 2019-10-03 13:38 | NUR ---
Bedside report received from Giovanna GLYNN, patient oriented to room and call light within reach. Will assume care of patient at this time.
[2019-10-03 14:00] VITALS: BP 176/79
--- NOTE | 2019-10-03 14:15 | History & Physicial ---
History of Present Illness History of Present Illness Reason for visit/HPI 84-year-old female presents to [facility] emergency department during the morning of October 03, 2021 with apparent unresponsiveness. Her glucose was determined to be in the 30s and felt to be the cause for her unresponsiveness. Patient became more alert after glucose was corrected with oral sucrose and glucagon. She is also had some upper airway congestion. Patient is a resident of [facility]. She is also suffering from a bullous blistering illness over the past 1-1-1/2 months. Some of the lesions have spontaneously is resolved but she has new lesions crop up at various spots on her body. These lesions have been cultured for both bacterial and viral and results are negative for each. Patient does have known cerebrovascular disease as well as dementia and does not give any useful history of present illness Date of Admission Oct 03, 2019 at 09:00 Date Seen by a Provider: Oct 03, 2019 Time Seen by a Provider: 14:00 I consulted on this patient on 10/03/19 14:10 Attending Physician Azeem Hidalgo MD Admitting Physician Azeem Hidalgo MD Consult Allergies and Home Medications Allergies Coded Allergies: diphenhydramine HCl (Unverified Allergy, Unknown, 04/28/11) Home Medications Acetaminophen 325 Mg Tablet, 650 MG PO Q4H PRN for PAIN-MILD (1-4) OR TEMPATURE, (Reported) Amlodipine Besylate 5 Mg Tablet, 5 MG PO DAILY, (Reported) Ascorbate Calcium 500 Mg Tablet, 500 MG PO DAILY, (Reported) Aspirin 81 Mg Tablet.dr, 81 MG PO DAILY, (Reported) Calcium Carbonate/Vitamin D3 1 Each Tablet, 1 TAB PO DAILY, (Reported) Carvedilol 12.5 Mg Tablet, 12.5 MG PO DAILY, (Reported) Clonazepam 0.5 Mg Tablet, 0.5 MG PO 0800,1400, (Reported) Clonazepam 1 Mg Tablet, 1 MG PO HS, (Reported) Dimethicone 92 Gm Cream..g., TP UD PRN for GAULDING, (Reported) TO PERINEAL REGION, APPLY THINLY TO ALL REDDENED AREAS NEEDED FOR GAULDING Docusate Sodium 100 Mg Capsule, 100 MG PO HS, (Reported) Hydrocodone Bit/Acetaminophen 1 Each Tablet, 1 TAB PO BID, (Reported) Hydrocortisone 30 Gm Cream..g., TOP TID, (Reported) APPLY TO PERINEAL AREA (VAGINAL FOLDS) Insulin Determir 1,000 Units/10 Ml Soln, 40 UNITS SQ HS, (Reported) L. Acidophilus/L.bulgaricus 1 Each Tablet, 1 TAB PO DAILY, (Reported) Loperamide HCl 2 Mg Tablet, 2 MG PO QID PRN for DIARRHEA, (Reported) Loratadine 10 Mg Tablet, 10 MG PO DAILY, (Reported) Magnesium Hydroxide 400 Mg/5 Ml Oral.susp, 30 ML PO DAILY PRN for CONSTIPATION- 7TH LINE, (Reported) Multivitamin with Minerals 1 Each Tablet, 1 TAB PO DAILY, (Reported) Mupirocin 22 Gm Oint...g., TP DAILY, (Reported) CLEANSE LEFT ELBOW WOUNDS WITH CLEANSER, PAT DRY, APPLY MUPIROCIN TO WOUND BED, COVER WITH CUTICERIN AND GAUZE, SECURE WITH ROLLER GAUZE Nitrofurantoin Monohyd/M-Cryst 100 Mg Capsule, 100 MG PO BID, (Reported) 10 DAY SUPPLY FILLED 09-30- Nystatin 1 Each Powder.ea., TOP BID, (Reported) FOR GAULDING TONECK AND UNDER BILAT BREASTS, BILAT GROIN CREASES AND BUTTOCKS. Risperidone 0.25 Mg Tablet, 0.25 MG PO TID, (Reported) Patient Home Medication List Home Medication List Reviewed: Yes Past Zuodsaz-Izksbm-Xixeil Hx Patient Social History Marrital Status: Alcohol Use: Denies Use Recreational Drug Use: No Smoking Status: Former Smoker Former Smoker, Quit: February 20, 2016 Type Used: Cigarettes Recent Foreign Travel: No Contact w/other who traveled: No Recent Hopitalizations: Yes Recent Infectious Disease Expo: No Immunizations Up To Date Tetanus Booster (TDap): Unknown Pediatric: No Date of Pneumonia Vaccine: Jun 24, 2016 Date of Influenza Vaccine: Jun 05, 2019 Seasonal Allergies Seasonal Allergies: No Surgeries Yes (BOWEL OBSTRUCTIONS) Abdominal, Bowel Surgery, Coronary Stent, Gallbladder, Hysterectomy, Orthopedic Respiratory Yes Currently Using CPAP: No Currently Using BIPAP: No Cardiovascular Yes Hypertension Neurological Yes (alzheimers) Dementia Reproductive System Hx Reproductive Disorders: No Sexually Transmitted Disease: No HIV/AIDS: 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 Genitourinary Yes Bladder Infection Gastrointestinal Yes Gastroesophageal Reflux Musculoskeletal Yes (PT IS NON-AMBULATORY) Arthritis, Gout Endocrine History of Endocrine Disorders: Yes (OBESITY) Endocrine Disorders: Diabetes, Non-Insulin dep HEENT History of HEENT Disorders: No Cancer No Psychosocial History of Psychiatric Problem: Yes Behavioral Health Disorders: Anxiety, Depression Integumentary History of Skin or Integumenta: Yes (DECUBITUS ULCERS ON BUTTOCKS) Blood Transfusions History of Blood Disorders: Yes (anemia) Adverse Reaction to a Blood Tr: No Family Medical History Significant Family History: Cancer, CAD Over 55 Years Old Family Hx: Abdominal aortic aneurysm Myocardial infarction G8 SISTER, Review of Systems Constitutional: see HPI Physical Exam Vital Signs Vital Signs - First Documented 10/03/19 07:35 Temp 36.2 Pulse 78 Resp 30 B/P (MAP) 149/75 (99) Pulse Ox 99 O2 Delivery Room Air Capillary Refill : Greater Than 3 Seconds Height, Weight, BMI Height: 5'5.00" Weight: 220lbs. 3.5oz. 99.075190ux; 36.7 BMI Method:Estimated General Appearance: No Apparent Distress HEENT: Moist Mucous Membranes; No Pharyngeal Erythema Respiratory: Lungs Clear Cardiovascular: Regular Rate, Rhythm Gastrointestinal: Soft Rectal: Deferred Extremity: Normal Capillary Refill Neurologic/Psychiatric: Other (Patient will respond to name but not give any further history) Skin: Normal Color, Other (Multiple areas of bullous blisters with erythematous bases. Multiple lesions on the extremities as well as trunk) Comments [facility] [place] NAME: LILY WILHELM MED REC#: [id number] PT STATUS: REG ER : 1935 PHYSICIAN: MERLIN SUMMERS MD ADMIT DATE: 10/03/19/ER Draft Date of Exam:10/03/19 CHEST 1 VIEW, AP/PA ONLY INDICATION: Low blood sugar FINDINGS: Portable view of the chest is compared to exam from 07/15/2018. Heart size appears a little more prominent than previously. It is probably due to the portable technique. There is calcification of the aorta. The vascularity is normal. There are no pleural effusions. Degenerative changes present in both shoulders. IMPRESSION: 1. Arteriosclerosis. 2. The heart size appears larger. This may be due to differences in technique. Dictated on workstation # [id number] Dict: 10/03/19 0856 Trans: 10/03/19 0903 [facility] [phone] Interpreted by: DANIEL DAY MD Electronically signed by: Assessment/Plan Assessment and Plan 1. Unresponsiveness and this was secondary to hypoglycemia -She is currently with normal glucose and alert on floor -She will have 4 times a day glucose monitoring -Sliding-scale insulin is given to her for now 2. Influenza B - she will have Tamiflu twice daily for 5 days 3. Urinary tract infection -Urine culture performed last week revealed Escherichia coli sensitive to Bactrim and ceftriaxone. She is currently on ceftriaxone 1 g daily. 4. Skin bullous lesions and multiple phases -At this point lesions are dressed -Wound care consultation Admission Diagnosis 1. Unresponsiveness and this was secondary to hypoglycemia 2. Influenza B 3. Urinary tract infection Admission Status: Inpatient Order (span 2 midnights) Reason for Inpatient Admission: Further monitoring of her glucose with adjustment of insulin is deemed appropriate. She will also receive IV antibiotic ceftriaxone and Tamiflu for her influenza Clinical Quality Measures DVT/VTE Risk/Contraindication: Risk Factor Score Per Nursin RFS Level Per Nursing on Admit: 4+=Very High AZEEM HIDALGO MD Oct 03, 2019 14:15
[2019-10-03 16:00] VITALS: BP 181/76
[2019-10-03 20:00] VITALS: BP 178/79
[2019-10-03] MEDS: clonazePAM 1 MG (KlonoPIN) TAB PO SCH (20:52)
[2019-10-03] MEDS: OSELTAMIVIR 30 MG (TAMIFLU) CAPSULE PO SCH (20:52)
[2019-10-03] MEDS: CARVEDILOL 12.5 MG (COREG) TABLET PO SCH (20:53)
[2019-10-03 23:50] VITALS: BP 126/74
[2019-10-04] MEDS: POTASSIUM CHLORIDE IV SCH ×6 (03:18→20:45)
[2019-10-04] MEDS: [UNRECOGNIZED DRUG - OTHER] IV SCH ×6 (03:18→20:45)
[2019-10-04] MEDS: HYDROcodone/APAP 5 MG/325 MG (LORTAB) TAB PO PRN ×2 (03:39→10:07)
[2019-10-04 04:50] VITALS: BP 126/73
[2019-10-04] MEDS: inSUlin ASPART (NovoLOG) 1 UNIT/0.01 ML (CHARGE PER UNIT) SC SCH ×4 (06:21→22:23)
[2019-10-04 06:25] LABS: BASOPHILS % (AUTO) 0 % (0-10); EOSINOPHILS # (AUTO) 1.4 10^3/uL (0.0-0.3); EOSINOPHILS % (AUTO) 21 % (0-10); HEMATOCRIT 28 % (35-52); HEMOGLOBIN 8.8 G/DL (11.5-16.0); LYMPHOCYTES # (AUTO) 1.4 X 10^3 (1.0-4.0); LYMPHOCYTES % (AUTO) 22 % (12-44); MEAN CORPUSCULAR HEMOGLOBIN 31 PG (25-34); MEAN CORPUSCULAR HGB CONC 31 G/DL (32-36); MEAN CORPUSCULAR VOLUME 100 FL (80-99); MONOCYTES # (AUTO) 0.5 X 10^3 (0.0-1.0); MONOCYTES % (AUTO) 8 % (0-12); NEUTROPHILS # (AUTO) 3.3 X 10^3 (1.8-7.8); NEUTROPHILS % (AUTO) 50 % (42-75); PLATELET COUNT 236 10^3/uL (130-400); WHITE BLOOD COUNT 6.6 10^3/uL (4.3-11.0)
[2019-10-04 06:58] LABS: ALANINE AMINOTRANSFERASE 12 U/L (0-55); ALKALINE PHOSPHATASE 84 U/L (40-136); BILIRUBIN,TOTAL 0.2 MG/DL (0.1-1.0); BUN/CREATININE RATIO 14; CALCIUM 7.2 MG/DL (8.5-10.1); CARBON DIOXIDE 19 MMOL/L (21-32); CHLORIDE 114 MMOL/L (98-107); CREATININE SERUM 0.72 MG/DL (0.60-1.30); GFR ESTIMATED > 60; GLUCOSE 80 MG/DL (70-105); POTASSIUM 4.3 MMOL/L (3.6-5.0); SODIUM 141 MMOL/L (135-145)
[2019-10-04 08:00] VITALS: BP 138/78
--- NOTE | 2019-10-04 08:13 | Diagnostic Imaging Report ---
INDICATION: Lower respiratory infection. Portable chest 4:59 AM FINDINGS: Heart size and pulmonary vascularity are normal. Lungs are clear. There are no effusions or pneumothoraces. IMPRESSION: Negative chest. Dictated by: Dictated on workstation # [id number]
[2019-10-04] MEDS ORDERED: WATER (STERILE) FOR INJECTION 10 ML ONE (08:23)
[2019-10-04] MEDS ORDERED: cefTRIAXone 1,000 MG IV (ROCEPHIN) VIAL ONE (08:23)
[2019-10-04] MEDS: clonazePAM 0.5 MG (KlonoPIN) TAB PO SCH ×2 (08:43→13:17)
[2019-10-04] MEDS: ASPIRIN 81 MG CHEW (CHILDREN'S ASA) PO SCH (08:43)
[2019-10-04] MEDS: OSELTAMIVIR 30 MG (TAMIFLU) CAPSULE PO SCH ×2 (08:43→20:45)
[2019-10-04] MEDS: risperiDONE 0.25 MG (RisperDAL) TAB PO SCH ×3 (08:43→20:45)
[2019-10-04] MEDS: CARVEDILOL 12.5 MG (COREG) TABLET PO SCH ×2 (08:43→20:45)
[2019-10-04] MEDS: cefTRIAXone 1,000 MG/SWFI 10 ML IV PUSH IV SCH ×2 (08:44)
--- NOTE | 2019-10-04 10:53 | Progress Note ---
Subjective Date Seen by a Provider: Oct 04, 2019 Time Seen by a Provider: 11:00 Subjective/Events-last exam Patient lying bed this morning awake but she does complain that her right arm is bothering her. She cannot exactly tell me what is hurting her but she does have her arm wrapped due to her bullous lesions. Objective Exam Vital Signs Date Time Temp Pulse Resp B/P (MAP) Pulse Ox O2 Delivery O2 Flow Rate FiO2 10/04/19 08:00 Room Air 10/04/19 08:00 36.4 78 18 138/78 (98) 100 Room Air 10/04/19 04:50 36.7 78 20 126/73 (90) 99 Room Air 10/03/19 23:50 36.6 75 18 126/74 (91) 99 Room Air 10/03/19 20:45 Room Air 10/03/19 20:00 36.8 89 20 178/79 (112) 97 Room Air 10/03/19 16:00 36.0 85 20 181/76 (111) 96 10/03/19 14:00 36.6 80 20 176/79 (111) 97 Room Air 10/03/19 13:14 100 Room Air I & O 10/04/19 07:00 Intake Total 2640 ml Output Total 625 ml Balance 2015 ml Capillary Refill : Less Than 3 Seconds General Appearance: Mild Distress (Due to the discomfort of her R arm) Respiratory: Lungs Clear Cardiovascular: Regular Rate, Rhythm Gastrointestinal: soft Results Lab Laboratory Tests 10/03/19 11:49: Glucometer 115H 10/03/19 15:00: Glucometer 53*L 10/03/19 15:57: Glucometer 100 10/03/19 20:13: Glucometer 153H 10/03/19 23:54: Glucometer 142H 10/04/19 05:26: Glucometer 53*L 10/04/19 06:11: Glucometer 83, White Blood Count 6.6, Red Blood Count 2.81L, Hemoglobin 8.8L, Hematocrit 28L, Mean Corpuscular Volume 100H, Mean Corpuscular Hemoglobin 31, Mean Corpuscular Hemoglobin Concent 31L, Red Cell Distribution Width 14.0, Platelet Count 236, Mean Platelet Volume 9.0, Neutrophils (%) (Auto) 50, Lymphocytes (%) (Auto) 22, Monocytes (%) (Auto) 8, Eosinophils (%) (Auto) 21H, Basophils (%) (Auto) 0, Neutrophils # (Auto) 3.3, Lymphocytes # (Auto) 1.4, Monocytes # (Auto) 0.5, Eosinophils # (Auto) 1.4H, Basophils # (Auto) 0.0, Sodium Level 141, Potassium Level 4.3, Chloride Level 114H, Carbon Dioxide Level 19L, Anion Gap 8, Blood Urea Nitrogen 10, Creatinine 0.72, Estimat Glomerular Filtration Rate > 60, BUN/Creatinine Ratio 14, Glucose Level 80, Calcium Level 7.2L, Corrected Calcium 8.8, Total Bilirubin 0.2, Aspartate Amino Transf (AST/SGOT) 24, Alanine Aminotransferase (ALT/SGPT) 12, Alkaline Phosphatase 84, Total Protein 5.0L, Albumin 2.0L Microbiology 10/03/19 Urine Culture - Preliminary, Resulted Escherichia coli 10/03/19 Influenza Types A,B Antigen (BRUNILDA) - Final, Complete Assessment/Plan Assessment/Plan Assess & Plan/Chief Complaint 1. Unresponsiveness and this was secondary to hypoglycemia -She is currently with normal glucose and alert on floor -She will have 4 times a day glucose monitoring -Sliding-scale insulin is given to her for now 10/04 -The unresponsiveness is resolved -Monitoring of glucose appear satisfactory 2. Influenza B - she will have Tamiflu twice daily for 5 days 3. Urinary tract infection -Urine culture performed last week revealed Escherichia coli sensitive to Bactrim and ceftriaxone. She is currently on ceftriaxone 1 g daily. 10/04 -Day number 2 of Rocephin -Urine culture reveals Escherichia coli with sensitivities pending 4. Skin bullous lesions and multiple phases -At this point lesions are dressed -Wound care consultation 10/04 -Awaiting biopsy and most likely this will be performed by dermatology outpati ent -Wound care has been consulted Clinical Quality Measures Admission Status Admission Dx 1. Unresponsiveness and this was secondary to hypoglycemia -She is currently with normal glucose and alert on floor -She will have 4 times a day glucose monitoring -Sliding-scale insulin is given to her for now 2. Influenza B - she will have Tamiflu twice daily for 5 days 3. Urinary tract infection -Urine culture performed last week revealed Escherichia coli sensitive to Bactrim and ceftriaxone. She is currently on ceftriaxone 1 g daily. 4. Skin bullous lesions and multiple phases -At this point lesions are dressed -Wound care consultation DVT/VTE Risk/Contraindication: Risk Factor Score Per Nursin RFS Level Per Nursing on Admit: 4+=Very High EFRAIN HIDALGO MD Oct 04, 2019 10:53
[2019-10-04 12:00] VITALS: BP 133/63
[2019-10-04] MEDS: MICONAZOLE 2% POWDER (DESENEX AF) 90 GM TOP SCH ×2 (13:00→20:46)
[2019-10-04] MEDS: fentaNYL INJECTION 100 MCG/2 ML AMP IVP PRN ×2 (13:17→22:24)
[2019-10-04 16:00] VITALS: BP 141/71
[2019-10-04 20:12] VITALS: BP 198/73
[2019-10-04] MEDS: clonazePAM 1 MG (KlonoPIN) TAB PO SCH (20:45)
[2019-10-04] MEDS: HYDROcodone/APAP 7.5 MG/325 MG (LORTAB, LORCET PLUS) TABLET PO PRN (20:45)
[2019-10-04] MEDS: ENOXAPARIN 40 MG/0.4 ML (LOVENOX) SYR SC SCH (20:50)
[2019-10-05 00:20] VITALS: BP 162/66
[2019-10-05] MEDS: fentaNYL INJECTION 100 MCG/2 ML AMP IVP PRN ×3 (02:21→22:11)
[2019-10-05] MEDS: POTASSIUM CHLORIDE IV SCH ×6 (03:07→22:10)
[2019-10-05] MEDS: [UNRECOGNIZED DRUG - OTHER] IV SCH ×6 (03:07→22:10)
[2019-10-05] MEDS: HYDROcodone/APAP 7.5 MG/325 MG (LORTAB, LORCET PLUS) TABLET PO PRN ×3 (04:51→22:11)
[2019-10-05] MEDS: inSUlin ASPART (NovoLOG) 1 UNIT/0.01 ML (CHARGE PER UNIT) SC SCH ×4 (06:06→22:12)
[2019-10-05 06:36] LABS: BASOPHILS % (AUTO) 0 % (0-10); EOSINOPHILS # (AUTO) 1.2 10^3/uL (0.0-0.3); EOSINOPHILS % (AUTO) 18 % (0-10); HEMATOCRIT 27 % (35-52); HEMOGLOBIN 8.6 G/DL (11.5-16.0); LYMPHOCYTES # (AUTO) 1.4 X 10^3 (1.0-4.0); LYMPHOCYTES % (AUTO) 22 % (12-44); MEAN CORPUSCULAR HEMOGLOBIN 32 PG (25-34); MEAN CORPUSCULAR HGB CONC 32 G/DL (32-36); MEAN CORPUSCULAR VOLUME 100 FL (80-99); MEAN PLATELET VOLUME 8.5 FL (7.4-10.4); MONOCYTES # (AUTO) 0.5 X 10^3 (0.0-1.0); MONOCYTES % (AUTO) 7 % (0-12); NEUTROPHILS # (AUTO) 3.5 X 10^3 (1.8-7.8); NEUTROPHILS % (AUTO) 53 % (42-75); PLATELET COUNT 220 10^3/uL (130-400); RED CELL DISTRIBUTION WIDTH 14.3 % (10.0-14.5); WHITE BLOOD COUNT 6.7 10^3/uL (4.3-11.0)
[2019-10-05 06:51] LABS: BUN/CREATININE RATIO 15; CALCIUM 7.3 MG/DL (8.5-10.1); CARBON DIOXIDE 19 MMOL/L (21-32); CHLORIDE 115 MMOL/L (98-107); CREATININE SERUM 0.65 MG/DL (0.60-1.30); GFR ESTIMATED > 60; GLUCOSE 66 MG/DL (70-105); POTASSIUM 5.3 MMOL/L (3.6-5.0); SODIUM 139 MMOL/L (135-145)
--- NOTE | 2019-10-05 08:12 | Progress Note ---
Subjective Date Seen by a Provider: Oct 05, 2019 Time Seen by a Provider: 08:20 Subjective/Events-last exam Patient appears to be more comfortable today. She answered questions a ppropriately. She does still complain of her arm pain. Objective Exam Vital Signs Date Time Temp Pulse Resp B/P (MAP) Pulse Ox O2 Delivery O2 Flow Rate FiO2 10/05/19 00:20 36.4 71 20 162/66 (98) 95 Room Air 10/04/19 20:45 Room Air 10/04/19 20:45 37.0 10/04/19 20:12 37.0 90 20 198/73 (114) 98 Room Air 10/04/19 16:00 37.4 72 22 141/71 (94) 98 Room Air 10/04/19 12:00 36.1 74 18 133/63 (86) 99 Room Air I & O 10/05/19 07:00 Intake Total 1850 ml Output Total 3075 ml Balance -1225 ml Capillary Refill : Less Than 3 Seconds General Appearance: No Apparent Distress HEENT: Other (Mucous membranes dry) Respiratory: Lungs Clear Cardiovascular: Regular Rate, Rhythm Gastrointestinal: soft Skin: Other (Skin lesions previously described unchanged) Results Lab Laboratory Tests 10/04/19 10:41: Glucometer 96 10/04/19 16:02: Glucometer 200H 10/04/19 21:50: Glucometer 222H 10/05/19 02:10: Glucometer 106 10/05/19 05:29: Glucometer 79 10/05/19 06:27: White Blood Count 6.7, Red Blood Count 2.71L, Hemoglobin 8.6L, Hematocrit 27L, Mean Corpuscular Volume 100H, Mean Corpuscular Hemoglobin 32, Mean Corpuscular Hemoglobin Concent 32, Red Cell Distribution Width 14.3, Platelet Count 220, Mean Platelet Volume 8.5, Neutrophils (%) (Auto) 53, Lymphocytes (%) (Auto) 22, Monocytes (%) (Auto) 7, Eosinophils (%) (Auto) 18H, Basophils (%) (Auto) 0, Neutrophils # (Auto) 3.5, Lymphocytes # (Auto) 1.4, Monocytes # (Auto) 0.5, Eosinophils # (Auto) 1.2H, Basophils # (Auto) 0.0, Sodium Level 139, Potassium Level 5.3H, Chloride Level 115H, Carbon Dioxide Level 19L, Anion Gap 5, Blood Urea Nitrogen 10, Creatinine 0.65, Estimat Glomerular Filtration Rate > 60, BUN/Creatinine Ratio 15, Glucose Level 66L, Calcium Level 7.3L Microbiology 10/03/19 Urine Culture - Preliminary, Resulted Gram Pos Mixed Bacterial Bess Escherichia coli 10/03/19 Influenza Types A,B Antigen (BRUNILDA) - Final, Complete 10/03/19 Blood Culture - Preliminary, Resulted No growth Assessment/Plan Assessment/Plan Assess & Plan/Chief Complaint 1. Unresponsiveness and this was secondary to hypoglycemia -She is currently with normal glucose and alert on floor -She will have 4 times a day glucose monitoring -Sliding-scale insulin is given to her for now 10/04 -The unresponsiveness is resolved -Monitoring of glucose appear satisfactory 10/05 -Glucose 80s -Decrease Levemir to 20 units at bedtime 2. Influenza B - she will have Tamiflu twice daily for 5 days 3. Urinary tract infection -Urine culture performed last week revealed Escherichia coli sensitive to Bactrim and ceftriaxone. She is currently on ceftriaxone 1 g daily. 10/04 -Day number 2 of Rocephin -Urine culture reveals Escherichia coli with sensitivities pending 10/05 -Day number 3 Rocephin 4. Skin bullous lesions and multiple phases -At this point lesions are dressed -Wound care consultation 10/04 -Awaiting biopsy and most likely this will be performed by dermatology outpatient -Wound care has been consulted Clinical Quality Measures Admission Status Admission Dx 1. Unresponsiveness and this was secondary to hypoglycemia -She is currently with normal glucose and alert on floor -She will have 4 times a day glucose monitoring -Sliding-scale insulin is given to her for now 2. Influenza B - she will have Tamiflu twice daily for 5 days 3. Urinary tract infection -Urine culture performed last week revealed Escherichia coli sensitive to Bactrim and ceftriaxone. She is currently on ceftriaxone 1 g daily. 4. Skin bullous lesions and multiple phases -At this point lesions are dressed -Wound care consultation DVT/VTE Risk/Contraindication: Risk Factor Score Per Nursin RFS Level Per Nursing on Admit: 4+=Very High EFRAIN HIDALGO MD Oct 05, 2019 08:12
[2019-10-05 08:49] VITALS: BP 123/60
[2019-10-05] MEDS ORDERED: cefTRIAXone 1,000 MG IV (ROCEPHIN) VIAL ONE (09:02)
[2019-10-05] MEDS ORDERED: WATER (STERILE) FOR INJECTION 10 ML ONE (09:02)
[2019-10-05 09:17] VITALS: BP 141/71
[2019-10-05] MEDS: CARVEDILOL 12.5 MG (COREG) TABLET PO SCH ×2 (09:25→22:10)
[2019-10-05] MEDS: clonazePAM 0.5 MG (KlonoPIN) TAB PO SCH ×2 (09:25→14:41)
[2019-10-05] MEDS: ASPIRIN 81 MG CHEW (CHILDREN'S ASA) PO SCH (09:25)
[2019-10-05] MEDS: OSELTAMIVIR 30 MG (TAMIFLU) CAPSULE PO SCH ×2 (09:25→22:10)
[2019-10-05] MEDS: cefTRIAXone 1,000 MG/SWFI 10 ML IV PUSH IV SCH ×2 (09:25)
[2019-10-05] MEDS: MICONAZOLE 2% POWDER (DESENEX AF) 90 GM TOP SCH ×2 (09:25→22:11)
[2019-10-05] MEDS: risperiDONE 0.25 MG (RisperDAL) TAB PO SCH ×3 (09:25→22:10)
[2019-10-05] MEDS ORDERED: DEXTROSE 50% 50 ML (IMS) SYR ONE (11:33)
[2019-10-05] MEDS ORDERED: DEXTROSE 50% 50 ML (IMS) SYR IV ONE (12:15)
[2019-10-05 16:00] VITALS: BP 130/71
[2019-10-05] MEDS: clonazePAM 1 MG (KlonoPIN) TAB PO SCH (22:10)
[2019-10-05] MEDS: ENOXAPARIN 40 MG/0.4 ML (LOVENOX) SYR SC SCH (22:10)
[2019-10-06 00:13] VITALS: BP 133/63
[2019-10-06] MEDS: fentaNYL INJECTION 100 MCG/2 ML AMP IVP PRN ×2 (01:53→13:17)
[2019-10-06] MEDS: POTASSIUM CHLORIDE IV SCH ×4 (04:53→12:03)
[2019-10-06] MEDS: [UNRECOGNIZED DRUG - OTHER] IV SCH ×4 (04:53→12:03)
[2019-10-06 05:40] LABS: BUN/CREATININE RATIO 13; CALCIUM 7.3 MG/DL (8.5-10.1); CARBON DIOXIDE 18 MMOL/L (21-32); CHLORIDE 113 MMOL/L (98-107); GFR ESTIMATED > 60; GLUCOSE 111 MG/DL (70-105); POTASSIUM 5.7 MMOL/L (3.6-5.0); SODIUM 138 MMOL/L (135-145)
[2019-10-06] MEDS: inSUlin ASPART (NovoLOG) 1 UNIT/0.01 ML (CHARGE PER UNIT) SC SCH ×2 (06:18→12:03)
--- NOTE | 2019-10-06 07:34 | Progress Note ---
Subjective Date Seen by a Provider: Oct 06, 2019 Time Seen by a Provider: 07:20 Subjective/Events-last exam Patient lying comfortably in bed this morning. She has received 3 doses of fentanyl throughout the last 12 hours. 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 Objective Exam Vital Signs Date Time Temp Pulse Resp B/P (MAP) Pulse Ox O2 Delivery O2 Flow Rate FiO2 10/06/19 00:13 36.6 83 21 133/63 (86) 98 Room Air 10/05/19 20:55 Room Air 10/05/19 16:00 36.0 76 18 130/71 (90) 97 Room Air 10/05/19 08:49 37.4 77 22 123/60 (81) 97 Room Air 10/05/19 08:00 Room Air I & O 10/06/19 06:59 Intake Total 2690 ml Output Total 3000 ml Balance -310 ml Capillary Refill : Less Than 3 Seconds General Appearance: No Apparent Distress Respiratory: Lungs Clear Cardiovascular: Regular Rate, Rhythm Gastrointestinal: soft Skin: Other (Lesions as noted) Results Lab Laboratory Tests 10/05/19 11:35: Glucometer 21*L 10/05/19 12:37: Glucometer 60*L 10/05/19 14:35: Glucometer 124H 10/05/19 16:50: Glucometer 138H 10/05/19 20:34: Glucometer 168H 10/06/19 04:49: Hemoglobin 9.0L, Hematocrit 28L, Sodium Level 138, Potassium Level 5.7H, Chloride Level 113H, Carbon Dioxide Level 18L, Anion Gap 7, Blood Urea Nitrogen 10, Creatinine 0.80, Estimat Glomerular Filtration Rate > 60, BUN/Creatinine Ratio 13, Glucose Level 111H, Calcium Level 7.3L Microbiology 10/03/19 Urine Culture - Final, Complete Gram Pos Mixed Bacterial Bess Escherichia coli 10/03/19 Influenza Types A,B Antigen (BRUNILDA) - Final, Complete 10/03/19 Blood Culture - Preliminary, Resulted No growth Assessment/Plan Assessment/Plan Assess & Plan/Chief Complaint 1. Unresponsiveness and this was secondary to hypoglycemia -She is currently with normal glucose and alert on floor -She will have 4 times a day glucose monitoring -Sliding-scale insulin is given to her for now 10/04 -The unresponsiveness is resolved -Monitoring of glucose appear satisfactory 10/05 -Glucose 80s -Decrease Levemir to 20 units at bedtime 10/06 -We will hold on giving Levemir at this time. 2. Influenza B - she will have Tamiflu twice daily for 5 days 3. Urinary tract infection -Urine culture performed last week revealed Escherichia coli sensitive to Bactrim and ceftriaxone. She is currently on ceftriaxone 1 g daily. 10/04 -Day number 2 of Rocephin -Urine culture reveals Escherichia coli with sensitivities pending 10/05 -Day number 3 Rocephin 10/06 -Day 3 Rocephin 4. Skin bullous lesions and multiple phases -At this point lesions are dressed -Wound care consultation 10/04 -Awaiting biopsy and most likely this will be performed by dermatology outpatient -Wound care has been consulted 10/06 -Will check with daughter when appointment with dermatology is Clinical Quality Measures Admission Status Admission Dx 1. Unresponsiveness and this was secondary to hypoglycemia -She is currently with normal glucose and alert on floor -She will have 4 times a day glucose monitoring -Sliding-scale insulin is given to her for now 2. Influenza B - she will have Tamiflu twice daily for 5 days 3. Urinary tract infection -Urine culture performed last week revealed Escherichia coli sensitive to Bactrim and ceftriaxone. She is currently on ceftriaxone 1 g daily. 4. Skin bullous lesions and multiple phases -At this point lesions are dressed -Wound care consultation DVT/VTE Risk/Contraindication: Risk Factor Score Per Nursin RFS Level Per Nursing on Admit: 4+=Very High EFRAIN HIDALGO MD Oct 06, 2019 07:34
[2019-10-06 08:08] VITALS: BP 123/64
[2019-10-06] MEDS ORDERED: cefTRIAXone 1,000 MG/SWFI 10 ML IV PUSH IV SCH ×2 (09:00)
[2019-10-06] MEDS ORDERED: cefTRIAXone 1,000 MG IV (ROCEPHIN) VIAL ONE (09:02)
[2019-10-06] MEDS ORDERED: WATER (STERILE) FOR INJECTION 10 ML ONE (09:02)
[2019-10-06] MEDS: CARVEDILOL 12.5 MG (COREG) TABLET PO SCH (09:16)
[2019-10-06] MEDS: OSELTAMIVIR 30 MG (TAMIFLU) CAPSULE PO SCH (09:16)
[2019-10-06] MEDS: risperiDONE 0.25 MG (RisperDAL) TAB PO SCH ×2 (09:16→12:05)
[2019-10-06] MEDS: MICONAZOLE 2% POWDER (DESENEX AF) 90 GM TOP SCH (09:16)
[2019-10-06] MEDS: ASPIRIN 81 MG CHEW (CHILDREN'S ASA) PO SCH (09:16)
[2019-10-06] MEDS: clonazePAM 0.5 MG (KlonoPIN) TAB PO SCH ×2 (09:16→14:55)
[2019-10-06] MEDS ORDERED: CFTR1V IM (11:46)
--- NOTE | 2019-10-06 14:48 | NUR ---
REPORT CALLED TO ALISON, NURSE WHO WILL TAKE CARE OF THIS PATIENT WHEN SHE ARRIVES BACK TO [facility].
--- NOTE | 2019-10-06 15:32 | NUR ---
REPORT UPDATE TO ALISON NURSE AT [facility] THAT THIS RN HAD ORDERS TO MAINTAIN LUX CATH AT DISCHARGE TO [facility] .
[2019-10-06 15:55] VITALS: BP 123/64
--- NOTE | 2019-10-06 16:22 | Discharge Summary ---
Diagnosis/Chief Complaint Date of Admission Oct 03, 2019 at 09:00 Date of Discharge Oct 06, 2019 at 15:55 Discharge Date: Oct 06, 2019 Discharge Time: 16:00 Admission Diagnosis Admission Diagnosis 1. Unresponsiveness and this was secondary to hypoglycemia 2. Influenza B 3. Urinary tract infection Discharge Diagnosis 1. Unresponsiveness and this was secondary to hypoglycemia 2. Influenza B 3. Urinary tract infection 4. Skin bullous lesions and multiple phases Reason Hospital Visit 84-year-old female presents to [facility] emergency department during the morning of October 03, 2021 with apparent unresponsiveness. Her glucose was determined to be in the 30s and felt to be the cause for her unresponsiveness. Patient became more alert after glucose was corrected with oral sucrose and glucagon. She is also had some upper airway congestion. Patient is a resident of [facility]. She is also suffering from a bullous blistering illness over the past 1-1-1/2 months. Some of the lesions have spontaneously is resolved but she has new lesions crop up at various spots on her body. These lesions have been cultured for both bacterial and viral and results are negative for each. Patient does have known cerebrovascular disease as well as dementia and does not give any useful history of present illness Discharge Summary Hospital Course Was the Problem List Reviewed?: Yes Hospital Course 1. Unresponsiveness and this was secondary to hypoglycemia -She is currently with normal glucose and alert on floor -She will have 4 times a day glucose monitoring -Sliding-scale insulin is given to her for now 2. Influenza B - she will have Tamiflu twice daily for 5 days 3. Urinary tract infection -Urine culture performed last week revealed Escherichia coli sensitive to Bactrim and ceftriaxone. She is currently on ceftriaxone 1 g daily. 4. Skin bullous lesions and multiple phases -At this point lesions are dressed -Wound care consultation Labs Laboratory Tests 10/03/19 20:13: Glucometer 153H 10/03/19 23:54: Glucometer 142H 10/04/19 05:26: Glucometer 53*L 10/04/19 06:11: Red Blood Count 2.81L, Hemoglobin 8.8L, Hematocrit 28L, Mean Corpuscular Volume 100H, Mean Corpuscular Hemoglobin Concent 31L, Eosinophils (%) (Auto) 21H, Eosinophils # (Auto) 1.4H, Chloride Level 114H, Carbon Dioxide Level 19L, Calcium Level 7.2L, Total Protein 5.0L, Albumin 2.0L 10/04/19 10:41: 10/04/19 16:02: Glucometer 200H 10/04/19 21:50: Glucometer 222H 10/05/19 02:10: 10/05/19 05:29: 10/05/19 06:27: Red Blood Count 2.71L, Hemoglobin 8.6L, Hematocrit 27L, Mean Corpuscular Volume 100H, Eosinophils (%) (Auto) 18H, Eosinophils # (Auto) 1.2H, Potassium Level 5.3H, Chloride Level 115H, Carbon Dioxide Level 19L, Glucose Level 66L, Calcium Level 7.3L 10/05/19 11:35: Glucometer 21*L 10/05/19 12:37: Glucometer 60*L 10/05/19 14:35: Glucometer 124H 10/05/19 16:50: Glucometer 138H 10/05/19 20:34: Glucometer 168H 10/06/19 04:49: Hemoglobin 9.0L, Hematocrit 28L, Potassium Level 5.7H, Chloride Level 113H, Carbon Dioxide Level 18L, Glucose Level 111H, Calcium Level 7.3L 10/06/19 11:13: Glucometer 249H Procedures None. Discharge Physical Examination Allergies: Coded Allergies: diphenhydramine HCl (Unverified Allergy, Unknown, 04/28/11) Vitals & I&Os Vital Signs Date Time Temp Pulse Resp B/P (MAP) Pulse Ox O2 Delivery O2 Flow Rate FiO2 10/06/19 15:55 37.1 81 18 123/64 97 Room Air General Appearance: No Acute Distress Respiratory: Clear to Auscultation Cardiovascular: Regular Rate Abdominal: Soft Skin: Other (multiple bullous lesions) Discharge Home Medications Reviewed and agree with Discharge Medication list on patient's Discharge Instruction sheet Instructions to Patient/Family Please see electronic discharge instructions given to patient. Clinical Quality Measures DVT/VTE Risk/Contraindication: Risk Factor Score Per Nursin RFS Level Per Nursing on Admit: 4+=Very High EFRAIN HIDALGO MD Oct 06, 2019 16:22
== END 2019-10-06 15:55 | DRG 638 ==
LOC: EDUNIT# 07:35 → ER 07:36 → ICU 09:00 → 4TH 13:36
PROVIDERS: ADMIT Family Medicine; ATTEND Family Medicine
DX: E11.649 Type 2 diabetes mellitus with hypoglycemia without coma (principal); N30.01 Acute cystitis with hematuria; B96.20 Unspecified Escherichia coli [E. coli] as the cause of diseases classified elsewhere; J10.1 Influenza due to other identified influenza virus with other respiratory manifestations; L13.9 Bullous disorder, unspecified; J44.9 Chronic obstructive pulmonary disease, unspecified; I10 Essential (primary) hypertension; F03.90 Unspecified dementia, unspecified severity, without behavioral disturbance, psychotic disturbance, mood disturbance, and anxiety; Z66 Do not resuscitate; K21.9 Gastro-esophageal reflux disease without esophagitis; M19.91 Primary osteoarthritis, unspecified site; M10.9 Gout, unspecified; E66.9 Obesity, unspecified; F41.9 Anxiety disorder, unspecified; F32.9 Major depressive disorder, single episode, unspecified; I67.9 Cerebrovascular disease, unspecified; Z79.4 Long term (current) use of insulin; Z87.891 Personal history of nicotine dependence
CPT/HCPCS: 36415; 70450; 71045; 80048; 80053; 81000; 82962; 83880; 84484; 85007; 85014; 85018; 85025; 85027; 85610; 85730; 87040; 87077; 87088; 87186; 87804; 93005; 96361; 96365; 96375; 96376

== ENCOUNTER 2019-11-04 07:04 | Inpatient (IN) | payer MEDICARE, MEDICAID ==
[~2019-11-04] VITALS: Ht 167 cm; Wt 101.8 kg
[2019-11-04] VITALS (14 sets, daily range): BP systolic 73–151; BP diastolic 36–73
[~2019-11-04 07:04] MED LIST changes: +CFTR1V IM; +DIME92CR TP; +DOCU-143 PO; +HYDR30CR71 TOP; +LORA10TA7 PO; +MUPI22OI2 TP; +NYST1POW22 TOP; +RISP0.2517 PO
[2019-11-04] MEDS ORDERED: ACETAMINOPHEN 650 MG SUPP (TYLENOL) ONE (07:18)
[2019-11-04] MEDS ORDERED: NS IV 1000 ML 1,000 ML IV SCH ×2 (07:19)
--- NOTE | 2019-11-04 07:20 | NUR ---
PT HAS NUMEROUS WOUNDS NOTED ON BODY.
[2019-11-04] MEDS ORDERED: VANCOMYCIN INJECTION 1,000 MG in NS (IVPB) 250 ML IV ONE (07:30)
[2019-11-04] MEDS ORDERED: CEFEPIME INJECTION 1,000 MG in WATER (STERILE) FOR INJECTION 10 ML IV ONE (07:30)
[2019-11-04] MEDS ORDERED: ACETAMINOPHEN 500 MG TAB (TYLENOL) PO PRN (07:30)
--- NOTE | 2019-11-04 07:31 | Diagnostic Imaging Report ---
INDICATION: Respiratory distress, fever, hypotension. Compared 10/04/2019 FINDINGS: The lungs are clear. The heart and vessels normal. There is no effusion or pneumothorax. IMPRESSION: No acute appearing abnormality Dictated by: Dictated on workstation # [id number]
[2019-11-04 07:32] LABS: ABG BASE EXCESS 0.4 MMOL/L (-2.5-2.5); ABG OXYGEN SATURATION 99 % (94-100); ABG PCO2 41 MMHG (35-45); ABG PO2 166 MMHG (79-93); ABG TCO2 25.1 MMOL/L (21.0-31.0)
[2019-11-04 07:33] LABS: ALLENS TEST YES-POS; INSPIRED O2 3 L; VENTILATOR NO
[2019-11-04 07:58] LABS: BASOPHILS % (AUTO) 0 % (0-10); EOSINOPHILS % (AUTO) 0 % (0-10); HEMATOCRIT 26 % (35-52); HEMOGLOBIN 8.2 G/DL (11.5-16.0); LYMPHOCYTES # (AUTO) 1.5 X 10^3 (1.0-4.0); LYMPHOCYTES % (AUTO) 9 % (12-44); MEAN CORPUSCULAR HEMOGLOBIN 32 PG (25-34); MEAN CORPUSCULAR HGB CONC 31 G/DL (32-36); MEAN CORPUSCULAR VOLUME 101 FL (80-99); MEAN PLATELET VOLUME 10.1 FL (7.4-10.4); MONOCYTES % (AUTO) 6 % (0-12); NEUTROPHILS # (AUTO) 14.7 X 10^3 (1.8-7.8); NEUTROPHILS % (AUTO) 86 % (42-75); PLATELET COUNT 206 10^3/uL (130-400); RED CELL DISTRIBUTION WIDTH 14.9 % (10.0-14.5); WHITE BLOOD COUNT 17.2 10^3/uL (4.3-11.0)
--- NOTE | 2019-11-04 07:59 | ED Respiratory ---
General Chief Complaint: Fever-Adult/Adol Stated Complaint: FLU;RESP DISTRESS Nursing Triage Note: PT ARRIVED PER EMS PT IN RESP DISTRESS, FEVER, HYPOTENSION. PT FROM [place]. PT HAS DECUBITUS ON BUTTOCKS AND R HEEL HAS WOUND, ABD WOUND AND L BREAST HAS WOUND. PT GRUNTING. PT HAS LUX IN PLACE Source: patient Exam Limitations: no limitations History of Present Illness Date Seen by Provider: Nov 04, 2019 Time Seen by Provider: 07:10 Initial Comments Patient presents to ER by EMS [facility] with chief complaint that staffs discovered her today having increased worker breathing, shortness of air, oxygen saturation was 87% on room air and temperature 103.7. They put her on 3 L by nasal cannula which brought her up to 92%. She had elevated heart rate 107 and a blood sugar 195 fasting this morning. She does depend on insulin. She is a DO NOT RESUSCITATE patient of Dr. Hidalgo's. Patient is bedbound and largely nonverbal and noncontributory to her own history. She has multiple ulcers in various states of healing. EMS points out a non-dressed unstageable ulcer on the right heel, buttocks, mid abdomen surgical ulceration and left breast. Allergies and Home Medications Allergies Coded Allergies: diphenhydramine HCl (Unverified Allergy, Unknown, 04/28/11) Home Medications Acetaminophen 325 Mg Tablet, 650 MG PO Q4H PRN for PAIN-MILD (1-4) OR TEMPATURE, (Reported) Amlodipine Besylate 5 Mg Tablet, 5 MG PO DAILY, (Reported) Ascorbate Calcium 500 Mg Tablet, 500 MG PO DAILY, (Reported) Aspirin 81 Mg Tablet.dr, 81 MG PO DAILY, (Reported) Calcium Carbonate/Vitamin D3 1 Each Tablet, 1 TAB PO DAILY, (Reported) Carvedilol 12.5 Mg Tablet, 12.5 MG PO DAILY, (Reported) Ceftriaxone Sodium 1 Gm Vial, 1 GM IM DAILY MEDICATION TO BE GIVEN IM DAILY X3 DAYS Prescribed by: JESSE GUTIERREZ on 10/06/19 1146 Clonazepam 0.5 Mg Tablet, 0.5 MG PO 0800,1400, (Reported) Clonazepam 1 Mg Tablet, 1 MG PO HS, (Reported) Dimethicone 92 Gm Cream..g., TP UD PRN for GAULDING, (Reported) TO PERINEAL REGION, APPLY THINLY TO ALL REDDENED AREAS NEEDED FOR GAULDING Docusate Sodium 100 Mg Capsule, 100 MG PO HS, (Reported) Hydrocodone Bit/Acetaminophen 1 Each Tablet, 1 TAB PO BID, (Reported) Hydrocortisone 30 Gm Cream..g., TOP TID, (Reported) APPLY TO PERINEAL AREA (VAGINAL FOLDS) L. Acidophilus/L.bulgaricus 1 Each Tablet, 1 TAB PO DAILY, (Reported) Loperamide HCl 2 Mg Tablet, 2 MG PO QID PRN for DIARRHEA, (Reported) Loratadine 10 Mg Tablet, 10 MG PO DAILY, (Reported) Magnesium Hydroxide 400 Mg/5 Ml Oral.susp, 30 ML PO DAILY PRN for CONSTIPATION- 7TH LINE, (Reported) Multivitamin with Minerals 1 Each Tablet, 1 TAB PO DAILY, (Reported) Mupirocin 22 Gm Oint...g., TP DAILY, (Reported) CLEANSE LEFT ELBOW WOUNDS WITH CLEANSER, PAT DRY, APPLY MUPIROCIN TO WOUND BED, COVER WITH CUTICERIN AND GAUZE, SECURE WITH ROLLER GAUZE Nitrofurantoin Monohyd/M-Cryst 100 Mg Capsule, 100 MG PO BID, (Reported) 10 DAY SUPPLY FILLED 09-30-20 Nystatin 1 Each Powder.ea., TOP BID, (Reported) FOR GAULDING TONECK AND UNDER BILAT BREASTS, BILAT GROIN CREASES AND BUTTOCKS. Risperidone 0.25 Mg Tablet, 0.25 MG PO TID, (Reported) Patient Home Medication List Home Medication List Reviewed: Yes Review of Systems Review of Systems Constitutional: chills, fever, weakness EENTM: see HPI (patient does not contribute to her own history due to nonverbal status, dementia area) Respiratory: cough, short of breath Cardiovascular: edema; No syncope Gastrointestinal: No abdominal pain, No vomiting Genitourinary: No discharge, No dysuria Musculoskeletal: No back pain, No joint pain Skin: No pruritus, No rash Psychiatric/Neurological: Denies Headache, Denies Numbness Past Akfyfyv-Vnqcfd-Nbushs Hx Patient Social History Alcohol Use: Denies Use Recreational Drug Use: No Smoking Status: Former Smoker Type Used: Cigarettes Former Smoker, Quit: February 20, 2016 Recent Foreign Travel: No Contact w/Someone Who Travel: No Recent Infectious Disease Expo: No Recent Hopitalizations: Yes Immunizations Up To Date Tetanus Booster (TDap): Unknown PED Vaccines UTD: No Date of Pneumonia Vaccine: Jun 24, 2016 Date of Influenza Vaccine: Jun 05, 2019 Seasonal Allergies Seasonal Allergies: No Past Medical History Surgeries: Yes (BOWEL OBSTRUCTIONS) Abdominal, Bowel Surgery, Coronary Stent, Gallbladder, Hysterectomy, Orthopedic Respiratory: Yes COPD Currently Using CPAP: No Currently Using BIPAP: No Cardiac: Yes Hypertension Neurological: Yes (alzheimers) Dementia Reproductive Disorders: No 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 Sexually Transmitted Disease: No HIV/AIDS: No Genitourinary: Yes Bladder Infection Gastrointestinal: Yes Gastroesophageal Reflux Musculoskeletal: Yes (PT IS NON-AMBULATORY) Arthritis, Gout Endocrine: Yes (OBESITY) Diabetes, Non-Insulin dep HEENT: No Cancer: No Psychosocial: Yes Anxiety, Depression Integumentary: Yes (DECUBITUS ULCERS ON BUTTOCKS) Blood Disorders: Yes (anemia) Adverse Reaction/Blood Tranf: No Family Medical History Abdominal aortic aneurysm Myocardial infarction G8 SISTER, Cancer, CAD Over 55 Years Old Physical Exam Vital Signs - First Documented 11/04/19 11/04/19 07:10 07:22 Temp 40.0 Pulse 103 Resp 40 B/P (MAP) 135/61 (85) Pulse Ox 100 O2 Flow Rate 50.00 Capillary Refill : Less Than 3 Seconds Height: 5'5.00" Weight: 220lbs. 3.5oz. 99.522468gg; 37.00 BMI Method:Estimated General Appearance: WD/WN, mild distress Eyes: Bilateral Eye Normal Inspection, Bilateral Eye PERRL, Bilateral Eye EOMI HEENT: PERRL/EOMI; No pharynx normal (dry oral mucosa) Neck: non-tender, full range of motion Respiratory: lungs clear, respiratory distress (mild to moderate with O2 sat of 96% on 2 L per nasal cannula), decreased breath sounds, accessory muscle use (suprasternal and supraclavicular retractions) Cardiovascular: normal peripheral pulses, regular rate, rhythm Gastrointestinal: normal bowel sounds, non tender, soft Neurologic/Psychiatric: alert, other (anxious affect, nonverbal) Skin: other (unstageable pressure ulcer on the right heel appears to be stage II at greatest. There is some breakdown covered with an ABD pad over the mid abdomen as well as above the left breast. Unstageable pressure ulcer stage II or 3 over the sacrum.) Focused Exam Lactate Level 11/04/19 07:45: Lactic Acid Level 3.51*H Lactic Acid Level Laboratory Tests Test 11/04/19 07:45 Lactic Acid Level 3.51 MMOL/L (0.50-2.00) *H Procedures/Interventions Lumen: triple Central Line Procedure: betadine prep (chlorhexidine prep), sterile drapes appl ied, sterile dressing applied Position: internal jugular (R) Anesthesia: Lidocaine (pain without epinephrine 1%) Volume Anesthetic (ccs): 3 Complications: none Post Position: sutured, good blood return, position confirmed w/ CXR Emergently consented to place a central line as the patient did not have any peripheral IV access available. Patient had history of hypertension and per EMS. Right IJ was examined under ultrasound guidance and determined to have a good entry point. The right IJ in Trendelenburg was not collapsed. We clean the skin thoroughly using chlorhexidine prep use sterile draping, down gloves and mask and headgear. We then entered the right internal jugular using a introducer needle provided in the kit and under ultrasound guidance watching the tip of the needle enter only in the right IJ. Good blood return. Guidewire was easily passed and a small vega in the skin was made. No ectopy was seen on the monitor. The introducer needle was removed and the dilator was passed and removed. We then threaded the central lumen of the pre-flushed triple-lumen 7 Singaporean over the guidewire and sutured in place at about 14 cm at 2 [address]. Good b lood return and then flushing. Patient tolerated procedure well. Sterile dressing was applied using supplied kit. Progress/Results/Core Measures Suspected Sepsis Recent Fever Within 48 Hours: Yes Infection Criteria Present: Suspected New Infection New/Unexplained Altered Menta: Yes Sepsis Screen: Possible Severe Sepsis Risk SIRS Temperature: Pulse: 104 Respiratory Rate: 38 Laboratory Tests 11/04/19 07:45: White Blood Count 17.2H Blood Pressure 138 /55 Mean: 85 11/04/19 07:45: Lactic Acid Level 3.51*H Laboratory Tests 11/04/19 07:45: Creatinine 0.99, INR Comment 1.4, Platelet Count 206, Total Bilirubin 0.6 Results/Orders Lab Results Laboratory Tests Test 11/04/19 07:21 11/04/19 07:45 Range/Units Blood Gas Puncture Site RT RAD Blood Gas Patient Temperature 40.0 Arterial Blood pH 7.40 7.37-7.43 Arterial Blood Partial Pressure CO2 41 35-45 MMHG Arterial Blood Partial Pressure O2 166 H 79-93 MMHG Arterial Blood HCO3 24 23-27 MMOL/L Arterial Blood Total CO2 25.1 21.0-31.0 MMOL/L Arterial Blood Oxygen Saturation 99 94-100 % Arterial Blood Base Excess 0.4 -2.5-2.5 MMOL/L Bharat Test YES-POS Blood Gas Ventilator Setting NO Blood Gas Inspired Oxygen 3 L White Blood Count 17.2 H 4.3-11.0 10^3/uL Red Blood Count 2.60 L 4.35-5.85 10^6/uL Hemoglobin 8.2 L 11.5-16.0 G/DL Hematocrit 26 L 35-52 % Mean Corpuscular Volume 101 H 80-99 FL Mean Corpuscular Hemoglobin 32 25-34 PG Mean Corpuscular Hemoglobin Concent 31 L 32-36 G/DL Red Cell Distribution Width 14.9 H 10.0-14.5 % Platelet Count 206 130-400 10^3/uL Mean Platelet Volume 10.1 7.4-10.4 FL Neutrophils (%) (Auto) 86 H 42-75 % Lymphocytes (%) (Auto) 9 L 12-44 % Monocytes (%) (Auto) 6 0-12 % Eosinophils (%) (Auto) 0 0-10 % Basophils (%) (Auto) 0 0-10 % Neutrophils # (Auto) 14.7 H 1.8-7.8 X 10^3 Lymphocytes # (Auto) 1.5 1.0-4.0 X 10^3 Monocytes # (Auto) 1.0 0.0-1.0 X 10^3 Eosinophils # (Auto) 0.0 0.0-0.3 10^3/uL Basophils # (Auto) 0.0 0.0-0.1 10^3/uL Neutrophils % (Manual) 73 % Lymphocytes % (Manual) 10 % Monocytes % (Manual) 6 % Eosinophils % (Manual) 1 % Basophils % (Manual) 1 % Band Neutrophils 9 % Hypochromasia SLIGHT Anisocytosis SLIGHT Macrocytosis SLIGHT Prothrombin Time 18.0 H 12.2-14.7 SEC INR Comment 1.4 0.8-1.4 Activated Partial Thromboplast Time 29 24-35 SEC Sodium Level 148 H 135-145 MMOL/L Potassium Level 3.1 L 3.6-5.0 MMOL/L Chloride Level 114 H 98-107 MMOL/L Carbon Dioxide Level 24 21-32 MMOL/L Anion Gap 10 5-14 MMOL/L Blood Urea Nitrogen 26 H 7-18 MG/DL Creatinine 0.99 0.60-1.30 MG/DL Estimat Glomerular Filtration Rate 54 BUN/Creatinine Ratio 26 Glucose Level 158 H 70-105 MG/DL Lactic Acid Level 3.51 *H 0.50-2.00 MMOL/L Calcium Level 7.9 L 8.5-10.1 MG/DL Corrected Calcium 9.4 8.5-10.1 MG/DL Total Bilirubin 0.6 0.1-1.0 MG/DL Aspartate Amino Transf (AST/SGOT) 17 5-34 U/L Alanine Aminotransferase (ALT/SGPT) 18 0-55 U/L Alkaline Phosphatase 75 40-136 U/L Troponin I 2.662 *H <0.028 NG/ML B-Type Natriuretic Peptide 2400.9 H <100.0 PG/ML Total Protein 5.2 L 6.4-8.2 GM/DL Albumin 2.1 L 3.2-4.5 GM/DL Micro Results Microbiology 11/04/19 Influenza Types A,B Antigen (BRUNILDA) - Final, Complete My Orders Orders - MERLIN SUMMERS Cbc With Automated Diff (11/04/19 07:19) Comprehensive Metabolic Panel (11/04/19 07:19) Blood Culture (11/04/19 07:19) Sputum Culture (11/04/19 07:19) Urinalysis (11/04/19:19) Urine Culture (11/04/19 07:19) Protime With Inr (11/04/19 07:19) Partial Thromboplastin Time (11/04/19 07:19) Chest 1 View, Ap/Pa Only (11/04/19 07:19) Acetaminophen Tablet (Tylenol Tablet) (11/04/19 07:30) Ed Iv/Invasive Line Start (11/04/19 07:19) Ed Iv/Invasive Line Start (11/04/19 07:19) Troponin I (11/04/19 07:19) Vital Signs Adult Sepsis Patie Q15M (11/04/19 07:19) O2 (11/04/19 07:19) Remove Rings In Anticipation O (11/04/19 07:19) Lactic Acid Analyzer (11/04/19 07:19) Influenza A And B Antigens (11/04/19 07:19) Ns Iv 1000 Ml (Sodium Chloride 0.9%) (11/04/19 07:19) Cefepime Injection (Maxipime Injection) (11/04/19 07:30) Vancomycin Injection (Vancomycin Injecti (11/04/19 07:30) Ed Iv/Invasive Line Start (11/04/19 07:19) Ns Iv 1000 Ml (Sodium Chloride 0.9%) (11/04/19 07:19) Vapotherm - Admin Rt Rfs (11/04/19 07:19) Acetaminophen Suppository (Tylenol Suppo (11/04/19 07:18) Arterial Blood Gas (11/04/19 07:20) Chest 1 View, Ap/Pa Only (11/04/19 07:50) Manual Differential (11/04/19 07:45) BNP (11/04/19 08:12) Ekg Tracing (11/04/19 08:32) Continuous Ekg Monitoring (11/04/19 08:32) Morphine Injection (Morphine Injection (11/04/19 08:48) Type And Screen (11/04/19 09:13) Medications Given in ED Current Medications Medications Dose Ordered Sig/Luis A Route Start Time Stop Time Status Last Admin Dose Admin Acetaminophen 650 mg STK-MED ONCE .ROUTE 11/04/19 07:18 11/04/19 07:24 DC 11/04/19 07:27 650 MG Cefepime HCl 1000 mg/Sterile Water 10 ml @ 200 mls/hr ONCE ONCE IV 11/04/19 07:30 11/04/19 07:32 DC 11/04/19 08:19 200 MLS/HR Vancomycin HCl 1000 mg/Sodium Chloride 250 ml @ 250 mls/hr ONCE ONCE IV 11/04/19 07:30 11/04/19 08:29 DC 11/04/19 08:19 250 MLS/HR Vital Signs/I&O 11/04/19 11/04/19 07:10 07:22 Temp 40.0 Pulse 103 104 Resp 40 38 B/P (MAP) 135/61 (85) Pulse Ox 100 100 O2 Flow Rate 50.00 Capillary Refill : Less Than 3 Seconds Blood Pressure Mean: 85 Progress Note #1: Time: 08:08 Progress Note Septic workup, we'll give her a little over 20 mL/kg ideal body adjusted at 170 pounds and this would be about 2 L. She has a reported blood pressure was low by EMS when they picked her up however she's had good blood pressure since she's been here. She has a good-looking ABG but does not demonstrate acute respiratory failure. She does have increased accessory muscle work of breathing so we'll keep her on BiPAP for now. She received a DuoNeb has not changed her breath sounds. There are diminished but there is no wheezing heard. No history of COPD or smoking. Influenza swab was obtained. Chest x-ray does not show any consolidation. Get a second chest x-ray after central line was placed as she had poor peripheral IV access availability after multiple attempts. We selected cefepime and vancomycin for broad-spectrum pneumonia coverage. EKG and troponin Progress Note #2: Time: :20 Progress Note We placed a new urinary catheter and she has had no urine output so far. Her BNP is significantly elevated so she may require some diuresis. Her heart rate has improved from the 1 teens down to the 90s. Because of her elevated troponin or plan on putting on weight-based Lovenox to protect against further heart attack. Aspirin by mouth. Progress Note #3: Time: 09:35 Progress Note Into the upper 80s however the blood pressure is soft and down to 109/48 so we'll hold off giving any Lasix or metoprolol until inpatient team has a chance to examine her. ECG Initial ECG Impression Date: Nov 04, 2019 Initial ECG Impression Time: 08:42 Initial ECG Rate: 103 Initial ECG Rhythm: S.Tach Initial ECG Intervals: QT (524) Initial ECG Impression: Normal, Nonspecific Changes Comment There is some artifact in leads V4. Otherwise sinus rhythm without clinically relevant ST elevation or depression. Right bundle branch block. Diagnostic Imaging Diagonstic Imaging: Xray Comments [facility] [place], [place] NAME: LILY WILHELM MED REC#: [id number] PT STATUS: REG ER : 1935 PHYSICIAN: MERLIN SUMMERS MD ADMIT DATE: 11/04/19/ER Draft Date of Exam:11/04/19 CHEST 1 VIEW, AP/PA ONLY INDICATION: Respiratory distress, fever, hypotension. Compared 10/04/2019 FINDINGS: The lungs are clear. The heart and vessels normal. There is no effusion or pneumothorax. IMPRESSION: No acute appearing abnormality Dictated on workstation # [id number] Dict: 11/04/19726 Trans: 11/04/19729 MELISSA [id number] Interpreted by: BETTY IQBAL Electronically signed by: Reviewed: Reviewed by Me Diagonstic Imaging: Xray Plain Films/CT/US/NM/MRI: chest (1v) Comments NAME: LILY WILHELM MED REC#: [id number] PT STATUS: REG ER : 1935 PHYSICIAN: MERLIN SUMMERS MD ADMIT DATE: 11/04/19/ER Draft Date of Exam:11/04/19 CHEST 1 VIEW, AP/PA ONLY CLINICAL INDICATION: Patient with central line placement. EXAM: Portable chest x-ray semi-upright view. COMPARISONS: Portable chest x-ray dated 11/04/2019. FINDINGS: There is interval placement of right IJ central line with tip in the mid superior vena cava region. There is no pneumothorax. There is mild bibasilar atelectasis. Otherwise, lungs are clear. There is no pleural effusion. Cardiac silhouette is upper limits of normal for portable projection. Pulmonary vasculature is within normal limits. The remainder of this exam shows no significant interval change compared to the prior study of comparison. IMPRESSION: 1: Interval placement of right IJ central line with tip in the mid superior vena cava. There is no pneumothorax. 2: The remainder of this exam shows no significant interval change compared to the prior study of comparison. Dictated on workstation # [id number] Dict: 11/04/19821 Trans: 11/04/19826 [id number] Interpreted by: SALVADOR INFANTE MD Electronically signed by: Reviewed: Reviewed by Me Consults Consults : Consulting Physician: A Departure Communication (Admissions) Time/Spoke to Admitting Phy: 09:[address] Maravilla and he agrees to admit the patient the ICU. Time/Spoke to Consulting Phy: 09:20 Discussed the case and he is okay with weight-based Lovenox, aspirin, 25 mg XL Toprol and Lasix 20 mg IV if the blood pressure will hold. Impression Primary Impression: NSTEMI (non-ST elevated myocardial infarction) Additional Impressions: UTI (urinary tract infection) Sepsis Qualified Codes: A41.9 - Sepsis, unspecified organism Disposition: ADMITTED INPATIENT Condition: Critical Admissions Decision to Admit Reason: Admit from ER (General) Decision to Admit/Date: Nov 04, 2019 Time/Decision to Admit Time: 09:26 Departure-Patient Inst. Referrals: EFRAIN HIDALGO MD (PCP/Family) Primary Care Physician MERLIN SUMMERS Nov 04, 2019 07:59
[2019-11-04 08:15] LABS: INR 1.4 (0.8-1.4)
[2019-11-04 08:16] LABS: ALBUMIN 2.1 GM/DL (3.2-4.5); BILIRUBIN,TOTAL 0.6 MG/DL (0.1-1.0); CALCIUM 7.9 MG/DL (8.5-10.1); CREATININE SERUM 0.99 MG/DL (0.60-1.30); POTASSIUM 3.1 MMOL/L (3.6-5.0); TOTAL PROTEIN 5.2 GM/DL (6.4-8.2)
--- NOTE | 2019-11-04 08:27 | Diagnostic Imaging Report ---
CLINICAL INDICATION: Patient with central line placement. EXAM: Portable chest x-ray semi-upright view. COMPARISONS: Portable chest x-ray dated 11/04/2019. FINDINGS: There is interval placement of right IJ central line with tip in the mid superior vena cava region. There is no pneumothorax. There is mild bibasilar atelectasis. Otherwise, lungs are clear. There is no pleural effusion. Cardiac silhouette is upper limits of normal for portable projection. Pulmonary vasculature is within normal limits. The remainder of this exam shows no significant interval change compared to the prior study of comparison. IMPRESSION: 1: Interval placement of right IJ central line with tip in the mid superior vena cava. There is no pneumothorax. 2: The remainder of this exam shows no significant interval change compared to the prior study of comparison. Dictated by: Dictated on workstation # [id number]
[2019-11-04] MEDS ORDERED: morphine INJ 10 MG/ML 1ML (SYR OR VIAL) IVP STA (08:48)
[2019-11-04 08:59] LABS: BAND NEUTROPHILS 9 %; BASOPHILS % (MANUAL) 1 %; EOSINOPHILS % (MANUAL) 1 %; LYMPHOCYTES % (MANUAL) 10 %; MONOCYTES % (MANUAL) 6 %; NEUTROPHILS % (MANUAL) 73 %
[2019-11-04 09:00] LABS: ANISOCYTOSIS SLIGHT; HYPOCHROMASIA SLIGHT
[2019-11-04] MEDS ORDERED: ENOXAPARIN 100 MG/1 ML (LOVENOX) SYR SC ONE (09:45)
[2019-11-04] MEDS ORDERED: ASPIRIN 81 MG CHEW (CHILDREN'S ASA) PO ONE (09:45)
[2019-11-04] MEDS ORDERED: NOREPINEPHRINE 4 MG/250 ML 250 ML IV ONE (10:01)
[2019-11-04] MEDS ORDERED: NOREPINEPHRINE 4 MG/250 ML 250 ML IV SCH (10:15)
--- NOTE | 2019-11-04 10:15 | NUR ---
temp 100.2
[2019-11-04 11:27] LABS: CLARITY,URINE TURBID; COLOR,URINE ORANGE; GLUCOSE, URINE (UA) NEGATIVE (NEGATIVE); KETONES,URINE TRACE (NEGATIVE); LEUKOCYTE ESTERASE ,URINE 2+ (NEGATIVE); NITRITE,URINE POSITIVE (NEGATIVE); PH,URINE 5.5 (5-9); PROTEIN,URINE 2+ (NEGATIVE)
[2019-11-04] MEDS ORDERED: ACETAMINOPHEN 650 MG SUPP (TYLENOL) PR PRN (11:45)
[2019-11-04] MEDS: POTASSIUM CHLORIDE INJ 40 MEQ in 1/2 NS IV SOLUTION 1,000 ML IV SCH ×3 (11:52→23:29)
[2019-11-04 11:59] LABS: BILIRUBIN,URINE 1+ (NEGATIVE); RBC,URINE >100 /HPF
[2019-11-04 12:00] LABS: BACTERIA,URINE LARGE /HPF; WBC,URINE >100 /HPF
[2019-11-04 12:01] LABS: AMORPHOUS SEDIMENT,UR MOD AMOR URATES /LPF
[2019-11-04 12:02] LABS: YEAST,URINE MODERATE /HPF
[2019-11-04] MEDS: inSUlin ASPART (NovoLOG) 1 UNIT/0.01 ML (CHARGE PER UNIT) SQ SCH ×3 (12:35→23:23)
--- NOTE | 2019-11-04 12:36 | Consultation-Cardiology ---
HPI-Cardiology Cardiology Consultation: Date of Consultation 11/04/19 Time Seen by a Provider: 12:15 Date of Admission 11-04-2019 Attending Physician Azeem Perrin MD Admitting Physician Azeem Perrin MD Consulting Physician KIAN DAY MD HPI: Chief Complaint: Elevated troponin Ms. Wilhelm is an 84 year old female from [facility] with increasing SOB, hypoxia and fever. She has multiple skin lesions to her back, legs, arms and hands. There is no family at the bedside. 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 She is not following commands. She opens her eyes when you call her name. There is not family at the bedside. Review of Systems-Cardiology Review of Systems Other comments Unable to obtain ROS FYL-Vhoamh-Hviibh Hx Patient Social History Alcohol Use: Denies Use Recreational Drug Use: No Smoking Status: Former Smoker Type Used: Cigarettes Recent Foreign Travel: No Recent Infectious Disease Expo: No Hospitalization with Isolation: Denies Immunizations Up To Date Tetanus Booster (TDap): Unknown Date of Pneumonia Vaccine: Jun 24, 2016 Date of Influenza Vaccine: Jun 05, 2019 Past Medical History PMH As described under Assessment. Family Medical History Family Medical History: Documented family h/o sister with ND and AAA. Family History: Abdominal aortic aneurysm Myocardial infarction G8 SISTER, Allergies and Home Medications Allergies Coded Allergies: diphenhydramine HCl (Unverified Allergy, Unknown, 04/28/11) Home Medications Acetaminophen 325 Mg Tablet, 650 MG PO Q4H PRN for PAIN-MILD (1-4) OR TEMPATURE, (Reported) Amlodipine Besylate 5 Mg Tablet, 5 MG PO DAILY, (Reported) HOLD AND NOTIFY PCP IF SBP<100 AND/OR DBP <60 AND/OR PULSE <60 Ascorbate Calcium 500 Mg Tablet, 500 MG PO DAILY, (Reported) Aspirin 81 Mg Tablet.dr, 81 MG PO DAILY, (Reported) Betamethasone Dipropionate 15 Gm Cream..g., TOP BID, (Reported) Calcium Carbonate/Vitamin D3 1 Each Tablet, 1 TAB PO DAILY, (Reported) Carvedilol 12.5 Mg Tablet, 12.5 MG PO DAILY, (Reported) HOLD AND NOTIFY PCP IF SBP<90 OR PULSE <50 Clonazepam 0.5 Mg Tablet, 0.5 MG PO 0800,1400, (Reported) Clonazepam 1 Mg Tablet, 1 MG PO HS, (Reported) Dimethicone 92 Gm Cream..g., TP UD PRN for GAULDING, (Reported) TO PERINEAL REGION, APPLY THINLY TO ALL REDDENED AREAS NEEDED FOR GAULDING Docusate Sodium 100 Mg Capsule, 100 MG PO HS, (Reported) Hydrocodone Bit/Acetaminophen 1 Each Tablet, 1 TAB PO 1000,2000, (Reported) Hydrocortisone 30 Gm Cream..g., TOP 0900,1500,2100, (Reported) APPLY TO PERINEAL AREA (VAGINAL FOLDS) Insulin Determir 1,000 Units/10 Ml Soln, 10 UNITS SQ BID, (Reported) Insulin Regular, Human 1,000 Units/10 Ml Soln, 10 UNITS SC 1130,1630, (Reported) L. Acidophilus/L.bulgaricus 1 Each Tablet, 1 TAB PO DAILY, (Reported) Loperamide HCl 2 Mg Tablet, 2 MG PO QID PRN for DIARRHEA, (Reported) Loratadine 10 Mg Tablet, 10 MG PO DAILY PRN for ALLERGIES, (Reported) Magnesium Hydroxide 400 Mg/5 Ml Oral.susp, 30 ML PO DAILY PRN for CONSTIPATION- 7TH LINE, (Reported) Multivitamin with Minerals 1 Each Tablet, 1 TAB PO DAILY, (Reported) Mupirocin 22 Gm Oint...g., TP DAILY, (Reported) CLEANSE LEFT ELBOW WOUNDS WITH CLEANSER, PAT DRY, APPLY MUPIROCIN TO WOUND BED DAILY Nystatin 1 Each Powder.ea., TOP BID, (Reported) FOR GAULDING TO NECK AND UNDER BILAT BREASTS, BILAT GROIN CREASES AND BUTTOCKS. Prednisone 20 Mg Tab, 20 MG PO DAILY, (Reported) Risperidone 0.25 Mg Tablet, 0.25 MG PO 0600,1200,1800, (Reported) Whey Protein Isolate 1 Each Powd.pack, 1 PACKET PO TIDWM, (Reported) Physical Exam-Cardiology Physical Exam Vital Signs/I&O 11/05/19 11/05/19 11/06/19 11/06/19 21:02 21:32 04:16 05:18 Temp 36.7 36.7 36.7 36.7 11/06/19 00:00 Intake Total 0 ml Output Total 300 ml Balance -300 ml Capillary Refill : Less Than 3 Seconds Constitutional: other (opens eyes; moaning) HEENT: oral hygience is good Neck: No carotid bruit; carotid pulses are 2 + bilaterally Respiratory: No accessory muscle use, No respiratory distress; chest expansion is symmetric, chest is bilaterally symmetric, other (fair air entry) Cardiovascular: regular rate-rhythm, S1 and S2, systolic murmur Gastrointestinal: round, audible bowel sounds Extremities: other (pitting edema to LE bilat) Neurologic/Psychiatric: other (does not follow commands) Skin: ulcerations on exposed areas (multiple lesions to arms, legs and back; m ultiple brusises to upper torso) Data Review Labs Laboratory Tests 11/05/19 13:00: Glucometer 171H Microbiology 11/04/19 Urine Culture - Preliminary, Resulted Escherichia coli Enterococcus faecalis 11/04/19 MRSA Screen - Final, Complete MRSA not isolated 11/04/19 Blood Culture - Preliminary, Resulted No growth Radiology NAME: LILY WILHELM MED REC#: [id number] PT STATUS: ADM IN : 1935 PHYSICIAN: MERLIN SUMMERS MD ADMIT DATE: 11/04/19/ICU Signed Date of Exam:11/04/19 CHEST 1 VIEW, AP/PA ONLY INDICATION: Respiratory distress, fever, hypotension. Compared 10/04/2019 FINDINGS: The lungs are clear. The heart and vessels normal. There is no effusion or pneumothorax. IMPRESSION: No acute appearing abnormality Dictated by: Dictated on workstation # [id number] Dict: 11/04/19 0727 Trans: 11/04/19 1155 MELISSA [id number] Interpreted by: BETTY IQBAL Electronically signed by: BETTY IQBAL 11/04/19 1155 ECG Impression ECG Comment SR A/P-Cardiology Assessment/Admission Diagnosis Sepsis with assoc hypotension likely secondary to UTI Acute resp insufficiency with hypoxia Elevated troponin likely Type 2 ND d/t transient hypoxia and hypotension Hypokalemia H/O dementia DM 2 Multiple skin lesions - following with dermatology Non-ambulatory - bed bound - h/o pressure ulcers Discussion and Recomendations Sepsis with associated hypotension likely secondary to UTI - management per medical services Likely Type 2 ND secondary hypoxia and transient hypotension Echocardiogram to eval structure BB as allowed, will give IV Lovenox, DVT dosing Monitor lab Replace electrolytes as indicated Further recs will be based on her hospital course She is a DNR We would like to thank medical services for this consult TRE VASQUEZ Nov 04, 2019 12:36
[2019-11-04] MEDS: NOREPINEPHRINE 4 MG/250 ML 250 ML IV SCH ×3 (13:13→22:17)
[2019-11-04] MEDS: CEFEPIME 1,000 MG/SWFI 10 ML IV PUSH IV SCH ×4 (14:56→20:06)
[2019-11-04] MEDS ORDERED: INSU100V3 SC (15:17)
[2019-11-04] MEDS ORDERED: INSU100V5 SQ (15:17)
[2019-11-04] MEDS ORDERED: RISP0.253 PO (15:17)
[2019-11-04] MEDS ORDERED: PRD20T PO (15:17)
[2019-11-04] MEDS ORDERED: PROT1PAC2 PO (15:17)
[2019-11-04] MEDS ORDERED: BETA15CR4 TOP (15:17)
--- NOTE | 2019-11-04 15:29 | NUR ---
UPDATED MED REC WITH MAR FROM [facility] [place]
--- NOTE | 2019-11-04 16:53 | Consultation-Cardiology ---
HPI-Cardiology Cardiology Consultation: Date of Consultation 11/04/19 Time Seen by a Provider: 15:00 Date of Admission Attending Physician Azeem Perrin MD Admitting Physician Azeem Perrin MD Consulting Physician KIAN DAY MD, MA, FACP, FACC, FSCAI, CCDS HPI: Chief Complaint: CC: Elevated troponin HPI Ms. Gallardo is an 84 year old female from [facility] with increasing SOB, hypoxia and fever. She has multiple skin lesions to her back, legs, arms and hands. There is no family at the bedside. 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 She is not following commands. She opens her eyes when you call her name. There is not family at the bedside. Review of Systems-Cardiology Review of Systems Constitutional: other (She is not able to provide any history, is non-verbal; we are not able to obtain any ROS) KWJ-Gemvjc-Tvvymz Hx Patient Social History Alcohol Use: Denies Use Recreational Drug Use: No Smoking Status: Former Smoker Type Used: Cigarettes Recent Foreign Travel: No Recent Infectious Disease Expo: No Hospitalization with Isolation: Denies Immunizations Up To Date Tetanus Booster (TDap): Unknown Date of Pneumonia Vaccine: Jun 24, 2016 Date of Influenza Vaccine: Jun 05, 2019 Past Medical History PMH As described under Assessment. Family Medical History Family Medical History: Documented family h/o sister with HI and AAA. Family History: Abdominal aortic aneurysm Myocardial infarction G8 SISTER, Allergies and Home Medications Allergies Coded Allergies: diphenhydramine HCl (Unverified Allergy, Unknown, 04/28/11) Home Medications Acetaminophen 325 Mg Tablet, 650 MG PO Q4H PRN for PAIN-MILD (1-4) OR TEMPATURE, (Reported) Amlodipine Besylate 5 Mg Tablet, 5 MG PO DAILY, (Reported) HOLD AND NOTIFY PCP IF SBP<100 AND/OR DBP <60 AND/OR PULSE <60 Ascorbate Calcium 500 Mg Tablet, 500 MG PO DAILY, (Reported) Aspirin 81 Mg Tablet.dr, 81 MG PO DAILY, (Reported) Betamethasone Dipropionate 15 Gm Cream..g., TOP BID, (Reported) Calcium Carbonate/Vitamin D3 1 Each Tablet, 1 TAB PO DAILY, (Reported) Carvedilol 12.5 Mg Tablet, 12.5 MG PO DAILY, (Reported) HOLD AND NOTIFY PCP IF SBP<90 OR PULSE <50 Clonazepam 0.5 Mg Tablet, 0.5 MG PO 0800,1400, (Reported) Clonazepam 1 Mg Tablet, 1 MG PO HS, (Reported) Dimethicone 92 Gm Cream..g., TP UD PRN for GAULDING, (Reported) TO PERINEAL REGION, APPLY THINLY TO ALL REDDENED AREAS NEEDED FOR GAULDING Docusate Sodium 100 Mg Capsule, 100 MG PO HS, (Reported) Hydrocodone Bit/Acetaminophen 1 Each Tablet, 1 TAB PO 1000,2000, (Reported) Hydrocortisone 30 Gm Cream..g., TOP 0900,1500,2100, (Reported) APPLY TO PERINEAL AREA (VAGINAL FOLDS) Insulin Determir 1,000 Units/10 Ml Soln, 10 UNITS SQ BID, (Reported) Insulin Regular, Human 1,000 Units/10 Ml Soln, 10 UNITS SC 1130,1630, (Reported) L. Acidophilus/L.bulgaricus 1 Each Tablet, 1 TAB PO DAILY, (Reported) Loperamide HCl 2 Mg Tablet, 2 MG PO QID PRN for DIARRHEA, (Reported) Loratadine 10 Mg Tablet, 10 MG PO DAILY PRN for ALLERGIES, (Reported) Magnesium Hydroxide 400 Mg/5 Ml Oral.susp, 30 ML PO DAILY PRN for CONSTIPATION- 7TH LINE, (Reported) Multivitamin with Minerals 1 Each Tablet, 1 TAB PO DAILY, (Reported) Mupirocin 22 Gm Oint...g., TP DAILY, (Reported) CLEANSE LEFT ELBOW WOUNDS WITH CLEANSER, PAT DRY, APPLY MUPIROCIN TO WOUND BED DAILY Nystatin 1 Each Powder.ea., TOP BID, (Reported) FOR GAULDING TO NECK AND UNDER BILAT BREASTS, BILAT GROIN CREASES AND BUTTOCKS. Prednisone 20 Mg Tab, 20 MG PO DAILY, (Reported) Risperidone 0.25 Mg Tablet, 0.25 MG PO 0600,1200,1800, (Reported) Whey Protein Isolate 1 Each Powd.pack, 1 PACKET PO TIDWM, (Reported) Patient Home Medication List Home Medication List Reviewed: Yes Physical Exam-Cardiology Physical Exam Vital Signs/I&O 11/04/19 11/04/19 11/04/19 11/04/19 07:10 07:22 10:45 11:15 Temp 40.0 37.7 Pulse 103 104 87 89 Resp 40 38 33 27 B/P (MAP) 135/61 (85) 111/43 (85) 90/36 (54) Pulse Ox 100 100 95 95 O2 Delivery Room Air O2 Flow Rate 50.00 11/04/19 11/04/19 11/04/19 11/04/19 12:00 12:30 13:00 14:00 Temp 37.8 Pulse 88 86 80 Resp 26 27 26 B/P (MAP) 122/56 (78) 109/54 (72) 109/52 (71) Pulse Ox 95 95 96 O2 Delivery Room Air Room Air Room Air 11/04/19 11/04/19 11/04/19 14:25 15:05 15:40 Temp 37.8 36.4 Pulse 93 Capillary Refill : Less Than 3 Seconds Constitutional: other (opens eyes; moaning) HEENT: oral hygience is good Neck: No carotid bruit; carotid pulses are 2 + bilaterally Respiratory: No accessory muscle use, No respiratory distress; chest expansion is symmetric, chest is bilaterally symmetric, other (fair air entry) Cardiovascular: regular rate-rhythm, S1 and S2, systolic murmur Gastrointestinal: round, audible bowel sounds Extremities: other (pitting edema to LE bilat) Neurologic/Psychiatric: other (does not follow commands) Skin: ulcerations on exposed areas (multiple lesions to arms, legs and back; multiple brusises to upper torso) Data Review Labs Laboratory Tests 11/04/19 07:21: Blood Gas Puncture Site RT RAD, Blood Gas Patient Temperature 40.0, Arterial Blood pH 7.40, Arterial Blood Partial Pressure CO2 41, Arterial Blood Partial Pressure O2 166H, Arterial Blood HCO3 24, Arterial Blood Total CO2 25.1, Arterial Blood Oxygen Saturation 99, Arterial Blood Base Excess 0.4, Bharat Test YES-POS, Blood Gas Ventilator Setting NO, Blood Gas Inspired Oxygen 3 L 11/04/19 07:45: White Blood Count 17.2H, Red Blood Count 2.60L, Hemoglobin 8.2L, Hematocrit 26L, Mean Corpuscular Volume 101H, Mean Corpuscular Hemoglobin 32, Mean Corpuscular Hemoglobin Concent 31L, Red Cell Distribution Width 14.9H, Platelet Count 206, Mean Platelet Volume 10.1, Neutrophils (%) (Auto) 86H, Lymphocytes (%) (Auto) 9L , Monocytes (%) (Auto) 6, Eosinophils (%) (Auto) 0, Basophils (%) (Auto) 0, Neutrophils # (Auto) 14.7H, Lymphocytes # (Auto) 1.5, Monocytes # (Auto) 1.0, Eosinophils # (Auto) 0.0, Basophils # (Auto) 0.0, Neutrophils % (Manual) 73, Lymphocytes % (Manual) 10, Monocytes % (Manual) 6, Eosinophils % (Manual) 1, Basophils % (Manual) 1, Band Neutrophils 9, Hypochromasia SLIGHT, Anisocytosis SLIGHT, Macrocytosis SLIGHT, Prothrombin Time 18.0H, INR Comment 1.4, Activated Partial Thromboplast Time 29, Sodium Level 148H, Potassium Level 3.1L, Chloride Level 114H, Carbon Dioxide Level 24, Anion Gap 10, Blood Urea Nitrogen 26H, Creatinine 0.99, Estimat Glomerular Filtration Rate 54, BUN/Creatinine Ratio 26, Glucose Level 158H, Lactic Acid Level 3.51*H, Calcium Level 7.9L, Corrected Calcium 9.4, Total Bilirubin 0.6, Aspartate Amino Transf (AST/SGOT) 17, Alanine Aminotransferase (ALT/SGPT) 18, Alkaline Phosphatase 75, Troponin I 2.662*H, B- Type Natriuretic Peptide 2400.9H, Total Protein 5.2L, Albumin 2.1L 11/04/19 09:49: Lactic Acid Level 2.92*H 11/04/19 11:20: Urine Color ORANGE, Urine Clarity TURBID, Urine pH 5.5, Urine Specific [place] >=1.030, Urine Protein 2+H, Urine Glucose (UA) NEGATIVE, Urine Ketones TRACEH, Urine Nitrite POSITIVEH, Urine Bilirubin 1+H, Urine Urobilinogen 0.2, Urine Leukocyte Esterase 2+H, Urine RBC (Auto) 3+H, Urine RBC >100H, Urine WBC >100H, Urine Squamous Epithelial Cells 10-25H, Urine Renal Epithelial Cells 2-5, Urine Crystals PRESENTH, Urine Amorphous Sediment MOD GENA URATESH, Urine Bacteria LARGEH, Urine Casts PRESENT, Urine Granular Casts 2-5H, Urine Mucus NEGATIVE, Urine Yeast MODERATEH, Urine Culture Indicated CULTURE PENDING 11/04/19 11:30: Lactic Acid Level 2.82*H 11/04/19 12:49: Glucometer 138H 11/04/19 14:10: Troponin I 1.699*H 11/04/19 15:00: Lactic Acid Level 2.36*H Microbiology 11/04/19 Influenza Types A,B Antigen (BRUNILDA) - Final, Complete Laboratory Tests 11/04/19 07:45 A/P-Cardiology Assessment/Admission Diagnosis Sepsis with assoc hypotension, likely secondary to UTI Acute resp insufficiency with hypoxia Elevated troponin - likely Type 2 HI - d/t transient hypoxia and hypotension Echo on 11/04/19: LVEF 60-65%, grade 2 pimentel dysfunction, mild LA dilation, RVSP 26 mmHg Hypokalemia H/O dementia DM 2 Multiple skin lesions (bullous pemphigoid, by history) - following with dermatology Non-ambulatory - bed bound - h/o pressure ulcers Discussion and Recomendations Sepsis with associated hypotension likely secondary to UTI - management per Medical services I discussed her case in detail with Dr Perrin BB as allowed, will give IV Lovenox, DVT dosing Monitor lab Replace electrolytes as indicated Further recs will be based on her hospital course She is a DNR We would like to thank Medical services for this consult Clinical Quality Measures DVT/VTE Risk/Contraindication: Risk Factor Score Per Nursin RFS Level Per Nursing on Admit: 4+=Very High KIAN DAY MD FACP FAC CCDS Nov 04, 2019 16:53
--- NOTE | 2019-11-04 17:12 | History & Physicial ---
History of Present Illness History of Present Illness Reason for visit/HPI 84-year-old female presents to emergency department during the morning of November 04, 2019 after being discovered by staff at [facility] or patient had increased respiratory effort as well as having shortness of breath. At that time she was noted to have 87 percent oxygen saturation on room air and her temperature was 103.7. Patient was placed on 3 L of nasal cannula at the [facility] and this brought her sats up to 92 percent. Patient is not a good historian and upon seeing currently she was predominantly sleeping. Patient recently was diagnosed with bullous pemphigoid and she had taken steroids to suppress the active lesions. She is DO NOT RESUSCITATE and her daughter is very involved with her care. Date of Admission Nov 04, 2019 at 09:39 Date Seen by a Provider: Nov 04, 2019 Time Seen by a Provider: 16:50 I consulted on this patient on 11/04/19 17:05 Attending Physician Azeem Hidalgo MD Admitting Physician Azeem Hidalgo MD Consult Allergies and Home Medications Allergies Coded Allergies: diphenhydramine HCl (Unverified Allergy, Unknown, 04/28/11) Home Medications Acetaminophen 325 Mg Tablet, 650 MG PO Q4H PRN for PAIN-MILD (1-4) OR TEMPATURE, (Reported) Amlodipine Besylate 5 Mg Tablet, 5 MG PO DAILY, (Reported) HOLD AND NOTIFY PCP IF SBP<100 AND/OR DBP <60 AND/OR PULSE <60 Ascorbate Calcium 500 Mg Tablet, 500 MG PO DAILY, (Reported) Aspirin 81 Mg Tablet.dr, 81 MG PO DAILY, (Reported) Betamethasone Dipropionate 15 Gm Cream..g., TOP BID, (Reported) Calcium Carbonate/Vitamin D3 1 Each Tablet, 1 TAB PO DAILY, (Reported) Carvedilol 12.5 Mg Tablet, 12.5 MG PO DAILY, (Reported) HOLD AND NOTIFY PCP IF SBP<90 OR PULSE <50 Clonazepam 0.5 Mg Tablet, 0.5 MG PO 0800,1400, (Reported) Clonazepam 1 Mg Tablet, 1 MG PO HS, (Reported) Dimethicone 92 Gm Cream..g., TP UD PRN for GAULDING, (Reported) TO PERINEAL REGION, APPLY THINLY TO ALL REDDENED AREAS NEEDED FOR GAULDING Docusate Sodium 100 Mg Capsule, 100 MG PO HS, (Reported) Hydrocodone Bit/Acetaminophen 1 Each Tablet, 1 TAB PO 1000,2000, (Reported) Hydrocortisone 30 Gm Cream..g., TOP 0900,1500,2100, (Reported) APPLY TO PERINEAL AREA (VAGINAL FOLDS) Insulin Determir 1,000 Units/10 Ml Soln, 10 UNITS SQ BID, (Reported) Insulin Regular, Human 1,000 Units/10 Ml Soln, 10 UNITS SC 1130,1630, (Reported) L. Acidophilus/L.bulgaricus 1 Each Tablet, 1 TAB PO DAILY, (Reported) Loperamide HCl 2 Mg Tablet, 2 MG PO QID PRN for DIARRHEA, (Reported) Loratadine 10 Mg Tablet, 10 MG PO DAILY PRN for ALLERGIES, (Reported) Magnesium Hydroxide 400 Mg/5 Ml Oral.susp, 30 ML PO DAILY PRN for CONSTIPATION- 7TH LINE, (Reported) Multivitamin with Minerals 1 Each Tablet, 1 TAB PO DAILY, (Reported) Mupirocin 22 Gm Oint...g., TP DAILY, (Reported) CLEANSE LEFT ELBOW WOUNDS WITH CLEANSER, PAT DRY, APPLY MUPIROCIN TO WOUND BED DAILY Nystatin 1 Each Powder.ea., TOP BID, (Reported) FOR GAULDING TO NECK AND UNDER BILAT BREASTS, BILAT GROIN CREASES AND BUTTOCKS. Prednisone 20 Mg Tab, 20 MG PO DAILY, (Reported) Risperidone 0.25 Mg Tablet, 0.25 MG PO 0600,1200,1800, (Reported) Whey Protein Isolate 1 Each Powd.pack, 1 PACKET PO TIDWM, (Reported) Patient Home Medication List Home Medication List Reviewed: Yes Past Azyhnyw-Iauehl-Riicna Hx Patient Social History Marrital Status: Alcohol Use: Denies Use Recreational Drug Use: No Smoking Status: Former Smoker Former Smoker, Quit: February 20, 2016 Type Used: Cigarettes Recent Foreign Travel: No Contact w/other who traveled: No Recent Hopitalizations: Yes Recent Infectious Disease Expo: No Immunizations Up To Date Tetanus Booster (TDap): Unknown Pediatric: No Date of Pneumonia Vaccine: Jun 24, 2016 Date of Influenza Vaccine: Jun 05, 2019 Seasonal Allergies Seasonal Allergies: No Surgeries Yes (BOWEL OBSTRUCTIONS) Abdominal, Bowel Surgery, Coronary Stent, Gallbladder, Hysterectomy, Orthopedic Respiratory Yes Currently Using CPAP: No Currently Using BIPAP: No Cardiovascular Yes Hypertension Neurological Yes (alzheimers) Dementia Reproductive System Hx Reproductive Disorders: No Sexually Transmitted Disease: No HIV/AIDS: No DUST [employer]OR O[employer] CRUSHING History: Menopausal Genitourinary Yes Bladder Infection Gastrointestinal Yes Gastroesophageal Reflux Musculoskeletal Yes (PT IS NON-AMBULATORY) Arthritis, Gout Endocrine History of Endocrine Disorders: Yes (OBESITY) Endocrine Disorders: Diabetes, Non-Insulin dep HEENT History of HEENT Disorders: No Cancer No Psychosocial History of Psychiatric Problem: Yes Behavioral Health Disorders: Anxiety, Depression Integumentary History of Skin or Integumenta: Yes (DECUBITUS ULCERS ON BUTTOCKS) Blood Transfusions History of Blood Disorders: Yes (anemia) Adverse Reaction to a Blood Tr: No Family Medical History Significant Family History: Cancer, CAD Over 55 Years Old Family Hx: Abdominal aortic aneurysm Myocardial infarction G8 SISTER, Review of Systems Constitutional: see HPI Physical Exam Vital Signs Vital Signs - First Documented 11/04/19 11/04/19 11/04/19 07:10 07:22 11:15 Temp 40.0 Pulse 103 Resp 40 B/P (MAP) 135/61 (85) Pulse Ox 100 O2 Delivery Room Air O2 Flow Rate 50.00 Capillary Refill : Less Than 3 Seconds Height, Weight, BMI Height: 5'5.00" Weight: 220lbs. 3.5oz. 99.359721ix; 37.00 BMI Method:Estimated General Appearance: No Apparent Distress (But she does appear pale) HEENT: No Moist Mucous Membranes Neck: Supple; No JVD Respiratory: Chest Non Tender, Lungs Clear, No Accessory Muscle Use, Decreased Breath Sounds; No Rales, No Respiratory Distress, No Rhonci Cardiovascular: Regular Rate, Rhythm; No Bradycardia Gastrointestinal: Soft; No Distended, No Guarding Rectal: Deferred Back: Normal Inspection (Except for skin lesions of healing pemphigoid) Extremity: No No Pedal Edema; Slow Capillary Refill Neurologic/Psychiatric: No Alert, No Oriented x3 Skin: Cool Comments [facility] [place] NAME: CHOCOLILY D [facility] REC#: [id number] PT STATUS: ADM IN : 1935 PHYSICIAN: MERLIN SUMMERS MD ADMIT DATE: 11/04/19/ICU Signed Date of Exam:11/04/19 CHEST 1 VIEW, AP/PA ONLY INDICATION: Respiratory distress, fever, hypotension. Compared 10/04/2019 FINDINGS: The lungs are clear. The heart and vessels normal. There is no effusion or pneumothorax. IMPRESSION: No acute appearing abnormality Dictated by: Dictated on workstation # [id number] Dict: 11/04/19 0727 Trans: 11/04/19 1155 MELISSA [id number] Interpreted by: BETTY IQBAL Electronically signed by: BETTY IQBAL 11/04/19 1155 Assessment/Plan Assessment and Plan 1. Urosepsis and most likely this is Escherichia coli since she has had multiple Escherichia coli urinary tract infections in the past -Patient has received cefepime as well as vancomycin in the emergency department. She has also been continued on cefepime on a daily basis. -We will continue to monitor her CBC and overall hydration status. She is currently at 175 mL/h on IV fluids -Blood and urine cultures pending 2. Elevated troponin and this may be related to sepsis but must consider cardiac as well -Cardiology consultation was obtained through emergency room doctor. -She apparently has undergone echocardiogram 3. Diabetes mellituscontrol needs improvement -Sliding-scale insulin currently with 4 times a day checks of glucose Admission Diagnosis 1. Urosepsis and most likely this is Escherichia coli since she has had multiple Escherichia coli urinary tract infections in the past 2. Elevated troponin and this may be related to sepsis but must consider cardiac as well 3. Diabetes mellituscontrol needs improvement Admission Status: Inpatient Order (span 2 midnights) Reason for Inpatient Admission: Patient in intensive care unit for IV fluids and IV antibiotics due to urosepsis. Clinical Quality Measures DVT/VTE Risk/Contraindication: Risk Factor Score Per Nursin RFS Level Per Nursing on Admit: 4+=Very High AZEEM HIDALGO MD Nov 04, 2019 17:11
[2019-11-04] MEDS ORDERED: ZINC OXIDE 16% OINT (BUTT PASTE) 113 GM TUBE TOP PRN (17:15)
[2019-11-04] MEDS: FUROSEMIDE 40 MG/4 ML INJ (LASIX) IVP SCH (17:37)
[2019-11-04] MEDS: meTOprolol 5 MG/5 ML (LOPRESSOR) VIAL IV SCH (17:37)
[2019-11-04] MEDS: inSUlin ASPART (NovoLOG) 1 UNIT/0.01 ML (CHARGE PER UNIT) SC SCH (17:48)
--- NOTE | 2019-11-04 18:29 | NUR ---
DR HIDALGO NOTIFED AT 1500 AND AT 1815 OF PT'S DECREASED URINE OUTPUT, NO NEW ORDERS RECEIVED.
--- NOTE | 2019-11-04 18:30 | NUR ---
[address] [employer] TRAVIS IN TO SEE PT, ARELY DRESSING APPLIED TO MULTIPLE AREAS.
--- NOTE | 2019-11-04 18:33 | NUR ---
ALL SEPSIS VITAL SIGNS CHARTED UNDER INTERVENTION FOR VITAL SIGNS.
--- NOTE | 2019-11-04 18:44 | NUR ---
PT'S HEART RATE NOTED TO BE SUSTAINING IN THE 140'S- 170'S, EKG COMPLETED AND DR DAY NOTIFIED NEW ORDERS RECEIVED TO START CARDIZEM DRIP AND D/C ANY FURTHER TROPONIN LAB DRAWS.
[2019-11-04] MEDS ORDERED: HYDROcodone/APAP 5 MG/325 MG (LORTAB) TAB PO PRN (19:15)
--- NOTE | 2019-11-04 19:27 | NUR ---
1900 PT MOANING OUT WHEN ASKED BY THIS JIVE DEVELOPER IF SHE IS IN PAIN, PT REPLIES "YES", DR HIDALGO NOTIFIED NEW ORDERS RECEIVED SEE ORDER HX.
--- NOTE | 2019-11-04 20:16 | NUR ---
THIS RN CRUSHED HYDROCODONE 6/325MG AND MIXED WITH ONE TABLESPOON APPLE SAUCE. PT UNABLE TO SWALLOW. APPLESAUCE/MEDICATION MIXTURE REMOVED FROM PT'S MOUTH, REMAINING MIXTURE WASTED BY THIS RN.
--- NOTE | 2019-11-04 20:22 | NUR ---
PT CONVERTED FROM A.FIB TO NSR WITH HR 80BPM AT THIS TIME.
[2019-11-04] MEDS: fentaNYL INJECTION 100 MCG/2 ML AMP IVP PRN (20:24)
--- NOTE | 2019-11-04 21:40 | NUR ---
PT CONVERTED TO A.FIB WITH RVR.
[2019-11-04] MEDS ORDERED: ENOXAPARIN 100 MG/1 ML (LOVENOX) SYR SC SCH (22:00)
[2019-11-05] VITALS (13 sets, daily range): BP systolic 91–122; BP diastolic 47–81
[2019-11-05] MEDS: meTOprolol 5 MG/5 ML (LOPRESSOR) VIAL IV SCH ×3 (00:14→13:28)
[2019-11-05 00:39] LABS: CREATININE SERUM 0.96 MG/DL (0.60-1.30); MAGNESIUM 1.6 MG/DL (1.6-2.4)
[2019-11-05 00:40] LABS: CALCIUM 7.8 MG/DL (8.5-10.1); POTASSIUM 4.6 MMOL/L (3.6-5.0)
[2019-11-05] MEDS ORDERED: MAGNESIUM 1 GM/100 ML IVPB 200 ML IV ONE (00:49)
[2019-11-05] MEDS: MAGNESIUM 1 GM/D5W 100 ML IVPB IV SCH ×2 (00:57→01:58)
[2019-11-05] MEDS: fentaNYL INJECTION 100 MCG/2 ML AMP IVP PRN ×2 (01:12→13:27)
[2019-11-05] MEDS: CEFEPIME 1,000 MG/SWFI 10 ML IV PUSH IV SCH ×4 (01:51→09:19)
[2019-11-05] MEDS ORDERED: AMIODARONE 150 MG/D5W 100 ML BOLUS IV ONE ×2 (02:00)
[2019-11-05] MEDS ORDERED: AMIODARONE 450 MG/250 ML D5W EXCEL IV SCH ×2 (02:00)
[2019-11-05 02:31] LABS: BASOPHILS % (AUTO) 0 % (0-10); EOSINOPHILS % (AUTO) 0 % (0-10); HEMATOCRIT 25 % (35-52); HEMOGLOBIN 7.8 G/DL (11.5-16.0); LYMPHOCYTES # (AUTO) 1.1 X 10^3 (1.0-4.0); LYMPHOCYTES % (AUTO) 4 % (12-44); MEAN CORPUSCULAR HEMOGLOBIN 31 PG (25-34); MEAN CORPUSCULAR HGB CONC 31 G/DL (32-36); MEAN CORPUSCULAR VOLUME 100 FL (80-99); MEAN PLATELET VOLUME 9.8 FL (7.4-10.4); MONOCYTES # (AUTO) 0.6 X 10^3 (0.0-1.0); MONOCYTES % (AUTO) 2 % (0-12); NEUTROPHILS # (AUTO) 24.2 X 10^3 (1.8-7.8); NEUTROPHILS % (AUTO) 93 % (42-75); PLATELET COUNT 252 10^3/uL (130-400); RED CELL DISTRIBUTION WIDTH 15.5 % (10.0-14.5); WHITE BLOOD COUNT 25.9 10^3/uL (4.3-11.0)
[2019-11-05 02:50] LABS: CREATININE SERUM 0.97 MG/DL (0.60-1.30); MAGNESIUM 2.1 MG/DL (1.6-2.4); PHOSPHORUS 3.4 MG/DL (2.3-4.7); POTASSIUM 4.2 MMOL/L (3.6-5.0)
[2019-11-05] MEDS: POTASSIUM CHLORIDE INJ 40 MEQ in 1/2 NS IV SOLUTION 1,000 ML IV SCH ×2 (05:46→07:40)
[2019-11-05] MEDS: inSUlin ASPART (NovoLOG) 1 UNIT/0.01 ML (CHARGE PER UNIT) SQ SCH ×2 (05:47→13:28)
[2019-11-05] MEDS: inSUlin ASPART (NovoLOG) 1 UNIT/0.01 ML (CHARGE PER UNIT) SC SCH ×2 (05:47→13:27)
[2019-11-05] MEDS ORDERED: KCL 20 MEQ TAB (K-DUR) PO SCH (06:00)
[2019-11-05] MEDS ORDERED: MAGNESIUM 1 GM/100 ML IVPB 100 ML IV SCH (06:00)
[2019-11-05] MEDS ORDERED: POTASSIUM CL 10MEQ/50ML IVPB 50 ML IV SCH (06:00)
[2019-11-05] MEDS: FUROSEMIDE 40 MG/4 ML INJ (LASIX) IVP SCH (06:10)
--- NOTE | 2019-11-05 07:54 | Progress Note ---
Subjective Date Seen by a Provider: Nov 05, 2019 Time Seen by a Provider: 07:30 Subjective/Events-last exam patient was sleeping initially upon entering room. She did arouse with her name. With eyes open she was able to answer no regarding pain and no regarding being hungry. I also spoke today with her daughter Aubrie regarding her condition. Aubrie informs me that she spoke with her sister today re Chio's condition. They do not want any heroic measures They are receptive to having hospice care involved as well. They would like to continue with given her I and IV antibiotics due to the urosepsis Focused Exam Lactate Level 11/04/19 09:49: Lactic Acid Level 2.92*H 11/04/19 11:30: Lactic Acid Level 2.82*H 11/04/19 15:00: Lactic Acid Level 2.36*H Objective Exam Vital Signs Date Time Temp Pulse Resp B/P (MAP) Pulse Ox O2 Delivery O2 Flow Rate FiO2 11/05/19 07:20 131 114/54 11/05/19 06:00 134 31 106/74 (85) 95 Room Air 11/05/19 05:00 151 23 109/72 (84) 96 Room Air 11/05/19 04:00 Room Air 11/05/19 04:00 37.0 11/05/19 03:00 144 29 96/70 (79) 95 Room Air 11/05/19 02:00 151 34 117/81 (93) 94 Room Air 11/05/19 01:18 144 11/05/19 01:00 149 26 97/81 (86) 95 Room Air 11/05/19 00:30 147 30 91/71 (78) 95 Room Air 11/05/19 00:00 151 106/70 (82) Room Air 11/04/19 23:25 Room Air 11/04/19 23:17 36.6 11/04/19 23:00 154 11 97/52 (67) 98 Room Air 11/04/19 22:00 144 31 73/66 (68) 96 Room Air 11/04/19 21:40 156 11/04/19 21:00 87 24 151/73 (99) 98 Room Air 11/04/19 20:22 85 32 102/52 (69) 97 Room Air 11/04/19 20:22 90 11/04/19 20:00 36.2 2/11/20 20:00 152 25 103/73 (83) 98 Room Air 11/04/19 19:45 Room Air 11/04/19 19:03 156 11/04/19 19:00 138 23 106/73 (84) 96 Room Air 11/04/19 19:00 138 11/04/19 18:56 [id number] 163 25 106/55 97 Room Air 11/04/19 17:00 87 25 109/53 (71) 97 Room Air 11/04/19 16:20 36.4 11/04/19 16:00 86 31 113/53 (73) 97 Room Air 11/04/19 16:00 96 Room Air 11/04/19 15:40 36.4 11/04/19 15:05 37.8 11/04/19 15:00 84 27 106/63 (77) 97 Room Air 11/04/19 14:25 93 11/04/19 14:00 80 26 109/52 (71) 96 Room Air 11/04/19 13:00 86 27 109/54 (72) 95 Room Air 11/04/19 12:30 37.8 11/04/19 12:00 88 26 122/56 (78) 95 Room Air 11/04/19 11:15 95 Room Air 11/04/19 11:15 89 27 90/36 (54) 95 Room Air 11/04/19 10:45 37.7 87 33 111/43 (85) 95 I & O 11/05/19 07:00 Intake Total 4607.4 ml Output Total 865 ml Balance 3742.4 ml Capillary Refill : Less Than 3 Seconds General Appearance: No Apparent Distress Respiratory: Lungs Clear Cardiovascular: Regular Rate, Rhythm (with rate at 130-140) Gastrointestinal: soft Skin: Normal Color, Other (pale) Results Lab Laboratory Tests 11/04/19 09:49: Lactic Acid Level 2.92*H 11/04/19 11:20: Urine Color ORANGE, Urine Clarity TURBID, Urine pH 5.5, Urine Specific [place] >=1.030, Urine Protein 2+H, Urine Glucose (UA) NEGATIVE, Urine Ketones TRACEH, Urine Nitrite POSITIVEH, Urine Bilirubin 1+H, Urine Urobilinogen 0.2, Urine Leukocyte Esterase 2+H, Urine RBC (Auto) 3+H, Urine RBC >100H, Urine WBC >100H, Urine Squamous Epithelial Cells 10-25H, Urine Renal Epithelial Cells 2-5, Urine Crystals PRESENTH, Urine Amorphous Sediment MOD GENA URATESH, Urine Bacteria LARGEH, Urine Casts PRESENT, Urine Granular Casts 2-5H, Urine Mucus NEGATIVE, Urine Yeast MODERATEH, Urine Culture Indicated CULTURE PENDING 11/04/19 11:30: Lactic Acid Level 2.82*H 11/04/19 12:49: Glucometer 138H 11/04/19 14:10: Troponin I 1.699*H 11/04/19 15:00: Lactic Acid Level 2.36*H 11/04/19 18:23: Glucometer 161H 11/04/19 23:22: Glucometer 153H 11/05/19 00:08: Sodium Level 146H, Potassium Level 4.6, Chloride Level 116H, Carbon Dioxide Level 21, Anion Gap 9, Blood Urea Nitrogen 29H, Creatinine 0.96, Estimat Glomerular Filtration Rate 56, BUN/Creatinine Ratio 30, Glucose Level 159H, Calcium Level 7.8L, Magnesium Level 1.6 11/05/19 02:27: Sodium Level 145, Potassium Level 4.2, Chloride Level 116H, Carbon Dioxide Level 21, Anion Gap 8, Blood Urea Nitrogen 30H, Creatinine 0.97, Estimat Glomerular Filtration Rate 55, BUN/Creatinine Ratio 31, Glucose Level 181H, Calcium Level 8.0L, Magnesium Level 2.1, White Blood Count 25.9H, Red Blood Count 2.52L, Hemoglobin 7.8L, Hematocrit 25L, Mean Corpuscular Volume 100H, Mean Corpuscular Hemoglobin 31, Mean Corpuscular Hemoglobin Concent 31L, Red Cell Distribution Width 15.5H, Platelet Count 252, Mean Platelet Volume 9.8, Neutrophils (%) (Auto) 93H, Lymphocytes (%) (Auto) 4L, Monocytes (%) (Auto) 2, Eosinophils (%) (Auto) 0, Basophils (%) (Auto) 0, Neutrophils # (Auto) 24.2H, Lymphocytes # (Auto) 1.1, Monocytes # (Auto) 0.6, Eosinophils # (Auto) 0.0, Basophils # (Auto) 0.0, Phosphorus Level 3.4 11/05/19 05:41: Glucometer 174H 11/05/19 06:27: Stool Occult Blood Immunoassay NEGATIVE Microbiology 11/04/19 Influenza Types A,B Antigen (BRUNILDA) - Final, Complete Assessment/Plan Assessment/Plan Assess & Plan/Chief Complaint 1. Urosepsis and most likely this is Escherichia coli since she has had multiple Escherichia coli urinary tract infections in the past -Patient has received cefepime as well as vancomycin in the emergency department . She has also been continued on cefepime on a daily basis. -We will continue to monitor her CBC and overall hydration status. She is currently at 175 mL/h on IV fluids -Blood and urine cultures pending 11/05 -patient open eyes this morning and gave yesterday no answers but rather slowly -today I spoke with patient's daughter who was also in communication with her that they would like to not see their mother suffer. I informed him we would consult hospice care. -Will continue with IV fluids as well as IV antibiotic cefepime 2. Elevated troponin and this may be related to sepsis but must consider cardiac as well -Cardiology consultation was obtained through emergency room doctor. -She apparently has undergone echocardiogram 3. Diabetes mellituscontrol needs improvement -Sliding-scale insulin currently with 4 times a day checks of glucose Clinical Quality Measures Admission Status Admission Dx 1. Urosepsis and most likely this is Escherichia coli since she has had multiple Escherichia coli urinary tract infections in the past 2. Elevated troponin and this may be related to sepsis but must consider cardiac as well 3. Diabetes mellituscontrol needs improvement DVT/VTE Risk/Contraindication: Risk Factor Score Per Nursin RFS Level Per Nursing on Admit: 4+=Very High EFRAIN HIDALGO MD Nov 05, 2019 07:54
--- NOTE | 2019-11-05 08:12 | Progress Note - Cardiology ---
Cardiology SOAP Progress Note Subjective: Verbally unresponsive Does not provide any history Objective: I&O/Vital Signs 11/04/19 11/04/19 11/04/19 11/04/19 20:22 20:22 21:00 21:40 Pulse 90 85 87 156 Resp 32 24 B/P (MAP) 102/52 (69) 151/73 (99) Pulse Ox 97 98 O2 Delivery Room Air Room Air 11/04/19 11/04/19 11/04/19 11/04/19 22:00 23:00 23:17 23:25 Temp 36.6 Pulse 144 154 Resp 31 11 B/P (MAP) 73/66 (68) 97/52 (67) Pulse Ox 96 98 O2 Delivery Room Air Room Air Room Air 11/05/19 11/05/19 11/05/19 11/05/19 00:00 00:30 01:00 01:18 Pulse 151 147 149 144 Resp 30 26 B/P (MAP) 106/70 (82) 91/71 (78) 97/81 (86) Pulse Ox 95 95 O2 Delivery Room Air Room Air Room Air 11/05/19 11/05/19 11/05/19 11/05/19 02:00 03:00 04:00 04:00 Temp 37.0 Pulse 151 144 Resp 34 29 B/P (MAP) 117/81 (93) 96/70 (79) Pulse Ox 94 95 O2 Delivery Room Air Room Air Room Air 11/05/19 11/05/19 11/05/19 05:00 06:00 07:20 Pulse 151 134 131 Resp 23 31 B/P (MAP) 109/72 (84) 106/74 (85) 114/54 Pulse Ox 96 95 O2 Delivery Room Air Room Air 11/05/19 00:00 Intake Total 2044.4 ml Output Total 640 ml Balance 1404.4 ml Weight (Pounds): 220 Weight (Ounces): 3.5 Weight (Calculated Kilograms): 99.189301 Constitutional: other (opens eyes; moaning) Respiratory: No accessory muscle use, No respiratory distress; chest expansion is symmetric, chest is bilaterally symmetric, other (fair air entry) Cardiovascular: regular rate-rhythm, S1 and S2, systolic murmur Gastrointestional: round, audible bowel sounds Extremities: other (pitting edema to LE bilat) Neurologic/Psychiatric: other (does not follow commands) Skin: ulcerations on exposed areas (multiple lesions to arms, legs and back; multiple brusises to upper torso) Results/Procedures: Labs Laboratory Tests 11/04/19 09:49: Lactic Acid Level 2.92*H 11/04/19 11:20: Urine Color ORANGE, Urine Clarity TURBID, Urine pH 5.5, Urine Specific [place] >=1.030, Urine Protein 2+H, Urine Glucose (UA) NEGATIVE, Urine Ketones TRACEH, Urine Nitrite POSITIVEH, Urine Bilirubin 1+H, Urine Urobilinogen 0.2, Urine L eukocyte Esterase 2+H, Urine RBC (Auto) 3+H, Urine RBC >100H, Urine WBC >100H, Urine Squamous Epithelial Cells 10-25H, Urine Renal Epithelial Cells 2-5, Urine Crystals PRESENTH, Urine Amorphous Sediment MOD GENA URATESH, Urine Bacteria L ARGEH, Urine Casts PRESENT, Urine Granular Casts 2-5H, Urine Mucus NEGATIVE, Urine Yeast MODERATEH, Urine Culture Indicated CULTURE PENDING 11/04/19 11:30: Lactic Acid Level 2.82*H 11/04/19 12:49: Glucometer 138H 11/04/19 14:10: Troponin I 1.699*H 11/04/19 15:00: Lactic Acid Level 2.36*H 11/04/19 18:23: Glucometer 161H 11/04/19 23:22: Glucometer 153H 11/05/19 00:08: Sodium Level 146H, Potassium Level 4.6, Chloride Level 116H, Carbon Dioxide Level 21, Anion Gap 9, Blood Urea Nitrogen 29H, Creatinine 0.96, Estimat Glomerular Filtration Rate 56, BUN/Creatinine Ratio 30, Glucose Level 159H, Calcium Level 7.8L, Magnesium Level 1.6 11/05/19 02:27: Sodium Level 145, Potassium Level 4.2, Chloride Level 116H, Carbon Dioxide Level 21, Anion Gap 8, Blood Urea Nitrogen 30H, Creatinine 0.97, Estimat Glomerular F iltration Rate 55, BUN/Creatinine Ratio 31, Glucose Level 181H, Calcium Level 8.0L, Magnesium Level 2.1, White Blood Count 25.9H, Red Blood Count 2.52L, Hemoglobin 7.8L, Hematocrit 25L, Mean Corpuscular Volume 100H, Mean Corpuscular Hemoglobin 31, Mean Corpuscular Hemoglobin Concent 31L, Red Cell Distribution Width 15.5H, Platelet Count 252, Mean Platelet Volume 9.8, Neutrophils (%) (Auto) 93H, Lymphocytes (%) (Auto) 4L, Monocytes (%) (Auto) 2, Eosinophils (%) (Auto) 0, Basophils (%) (Auto) 0, Neutrophils # (Auto) 24.2H, Lymphocytes # (Auto) 1.1, Monocytes # (Auto) 0.6, Eosinophils # (Auto) 0.0, Basophils # (Auto) 0.0, Phosphorus Level 3.4 11/05/19 05:41: Glucometer 174H 11/05/19 06:27: Stool Occult Blood Immunoassay NEGATIVE Microbiology 11/04/19 Influenza Types A,B Antigen (BRUNILDA) - Final, Complete A/P: Assessment: New onset of A Fib at approx 6:30 pm on 11/04/19 Sepsis with assoc hypotension, likely secondary to UTI Acute resp insufficiency with hypoxia Marked anemia of undetermined etiology, being managed by the Med Svce Elevated troponin - likely Type 2 [place] - d/t transient hypoxia and hypotension Echo on 11/04/19: LVEF 60-65%, grade 2 pimentel dysfunction, mild LA dilation, RVSP 26 mmHg Hypokalemia H/o dementia DM 2 Multiple skin lesions (bullous pemphigoid, by history) - following with dermatology Non-ambulatory - bed bound - h/o pressure ulcers Plan: * iv dilt for vent rate control * EICU started her on iv amio last night * Change enoxaparin to oral apixaban (for stroke prophylaxis) * Monitor labs closely * Consider blood transfusion if hgb falls further KIAN DAY MD FACP FACC CCDS Nov 05, 2019 08:11
--- NOTE | 2019-11-05 08:26 | Diagnostic Imaging Report ---
INDICATION: Dyspnea. COMPARISON: 1120. FINDINGS: There is currently mentally. Lungs are clear. No pleural effusion or pneumothorax. Mediastinum is unremarkable. The right internal jugular central venous catheter has its tip in superior vena cava. IMPRESSION: No acute cardiopulmonary abnormality. Cardiomegaly. Dictated by: Dictated on workstation # [id number]
[2019-11-05] MEDS ORDERED: APIXABAN 5 MG (ELIQUIS) TABLET PO SCH (09:00)
[2019-11-05] MEDS ORDERED: ENOXAPARIN 40 MG/0.4 ML (LOVENOX) SYR SC SCH (09:00)
[2019-11-05] MEDS ORDERED: ASPIRIN 81 MG CHEW (CHILDREN'S ASA) PO SCH (09:00)
[2019-11-05] MEDS: NOREPINEPHRINE 4 MG/250 ML 250 ML IV SCH (09:19)
--- NOTE | 2019-11-05 10:03 | NUR ---
Initial visit: pt with steady gaze, looked at me throughout our visit and did not respond verbally. Offered prayer and calming presence.
--- NOTE | 2019-11-05 11:24 | NUR ---
PALLIATIVE CARE RN: Spoke to patient bedside RN and gotten the history on this patient. Patient has severe dementia and a skin disorder that causes blisters and open sores. She is now with NSTEMI/sepsis and UTI. Errol GLYNN indicated that the daughter is leaning toward [facility] in the hospital...and then hospice if she does not pass. Dr. Perrin has spoken with the family to my understanding. Upon arrival to room patient is laying reclined in bed with waxy appearance with eyes open and a blank stair. She did direct eyes in my direction when spoken too. her right hand and feet are edematous, wounds noted on her right hand. She did verbalize once spoken too but it was sounded more like a cry without the facial expression to match. Called Dr. Perrin to hear from him what he wants me to do.
[2019-11-05] MEDS ORDERED: SALIVA STIMULANT MOUTH SPRAY (BIOTENE) 1.5 OZ MM PRN (13:45)
[2019-11-05] MEDS ORDERED: ONDANSETRON 4 MG/2 ML (SDV) Z0FRAN IVP PRN (13:45)
[2019-11-05] MEDS ORDERED: ACETAMINOPHEN 650 MG SUPP (TYLENOL) PR PRN (13:45)
[2019-11-05] MEDS ORDERED: BISACODYL 10 MG SUPP (DULCOLAX) PR PRN (13:45)
[2019-11-05] MEDS ORDERED: GLYCOPYRROLATE 0.2 MG/ML (ROBINUL) 2 ML VIAL IV PRN (13:45)
[2019-11-05] MEDS ORDERED: PROMETHAZINE INJ 25 MG/ML (PHENERGAN) AMP IVP PRN (13:45)
--- NOTE | 2019-11-05 14:01 | NUR ---
PALLIATIVE CARE RN HAS HAD THE OPPORTUNITY TO SPEAK WITH PATIENTS DAUGHTER AND SON IN LAW. THEY ARE IN SUPPORT OF COMFORT CARE AND UNDERSTAND WHAT THIS MEANS. I SPENT SEVERAL MINUTES EDUCATING THEM ON THE PROCESS. I CALLED AND SPOKE WITH DR. HIDALGO AND NITO RN . RECEIVED ORDERS FOR COMFORT CARE MEASURES ONLY WHICH HAVE BEEN ENTERED. TREMAINE SOLISIN HAS BEEN CONTACTED AT THE FAMILY REQUEST.
--- NOTE | 2019-11-05 14:38 | NUR ---
REPORT TAKEN AT THIS TIME FROM GRETTA FORTE IN ICU. THIS RN WILL ASSUME CARE OF THIS PATIENT WHEN SHE ARRIVES TO ROOM 424-1.
[2019-11-05] MEDS: SCOPOLAMINE 1.5 MG (TRANSDERM-SCOP) PATCH TOP SCH (14:42)
--- NOTE | 2019-11-05 14:55 | NUR ---
Called by Harpreet at 1400 relaying family request for a visit from this barrel stave inspector. Offered prayer at the bedside and provided caregiver support. Pt's daughter, Aubrie, was tearful at times and requested prayer. This barrel stave inspector has known the pt several years and has established rapport with her and her family.
--- NOTE | 2019-11-05 15:05 | NUR ---
PATIENT TO FLOOR AT THIS TIME VIA CART, ACCOMPANIED BY GRETTA FORTE. THIS RN WILL ASSUME CARE OF THIS PATIENT AT THIS TIME.
--- NOTE | 2019-11-05 17:00 | NUR ---
This RN took over patient care at this time. patient resting with eyes closed
[2019-11-05] MEDS: morphine INJ 4 MG/ML 1 ML (VIAL/SYRINGE) IV PRN ×2 (18:16→21:02)
[2019-11-06] MEDS: morphine INJ 4 MG/ML 1 ML (VIAL/SYRINGE) IV PRN ×2 (04:16→19:52)
--- NOTE | 2019-11-06 07:05 | Progress Note ---
Subjective Date Seen by a Provider: Nov 06, 2019 Time Seen by a Provider: 07:15 Subjective/Events-last exam Patient now transferred to [facility]. She is resting comfortably. She is receiving hospice care. Focused Exam Lactate Level 11/04/19 09:49: Lactic Acid Level 2.92*H 11/04/19 11:30: Lactic Acid Level 2.82*H 11/04/19 15:00: Lactic Acid Level 2.36*H Objective Exam Vital Signs Date Time Temp Pulse Resp B/P (MAP) Pulse Ox O2 Delivery O2 Flow Rate FiO2 11/06/19 05:18 36.7 11/06/19 04:16 36.7 11/05/19 21:32 36.7 11/05/19 21:02 36.7 11/05/19 13:00 36.7 11/05/19 12:41 67 11/05/19 12:00 65 33 119/53 (75) 96 Room Air 11/05/19 12:00 Room Air 11/05/19 11:00 64 34 122/47 (72) 95 Room Air 11/05/19 10:00 60 34 115/65 (82) 96 Room Air 11/05/19 09:00 53 35 99/61 (74) 96 Room Air 11/05/19 08:00 Room Air 11/05/19 08:00 141 30 95/48 (64) 95 Room Air 11/05/19 08:00 36.5 11/05/19 07:20 131 114/54 I & O 11/06/19 07:00 Intake Total 125 ml Output Total 650 ml Balance -525 ml Capillary Refill : Less Than 3 Seconds General Appearance: No Apparent Distress Results Lab Laboratory Tests 11/05/19 13:00: Glucometer 171H Microbiology 11/04/19 Urine Culture - Preliminary, Resulted Escherichia coli Enterococcus faecalis 11/04/19 MRSA Screen - Final, Complete MRSA not isolated 11/04/19 Blood Culture - Preliminary, Resulted No growth Assessment/Plan Assessment/Plan Assess & Plan/Chief Complaint 1. Urosepsis and most likely this is Escherichia coli since she has had multiple Escherichia coli urinary tract infections in the past -Patient has received cefepime as well as vancomycin in the emergency department. She has also been continued on cefepime on a daily basis. -We will continue to monitor her CBC and overall hydration status. She is currently at 175 mL/h on IV fluids -Blood and urine cultures pending 11/05 -patient open eyes this morning and gave yesterday no answers but rather slowly -today I spoke with patient's daughter who was also in communication with her that they would like to not see their mother suffer. I informed him we would consult hospice care. -Will continue with IV fluids as well as IV antibiotic cefepime 11/06 -Urine culture reveals Escherichia coli and enterococcus -Hospice care initiated yesterday afternoon at family's request 2. Elevated troponin and this may be related to sepsis but must consider car diac as well -Cardiology consultation was obtained through emergency room doctor. -She apparently has undergone echocardiogram 3. Diabetes mellituscontrol needs improvement -Sliding-scale insulin currently with 4 times a day checks of glucose Clinical Quality Measures Admission Status Admission Dx 1. Urosepsis and most likely this is Escherichia coli since she has had multiple Escherichia coli urinary tract infections in the past 2. Elevated troponin and this may be related to sepsis but must consider cardiac as well 3. Diabetes mellituscontrol needs improvement DVT/VTE Risk/Contraindication: Risk Factor Score Per Nursin RFS Level Per Nursing on Admit: 4+=Very High EFRAIN HIDALGO MD Nov 06, 2019 07:04
--- NOTE | 2019-11-06 15:25 | NUR ---
Family has been declining to have patient turned every two hours. PCT's have been documenting this under interventions.
--- NOTE | 2019-11-06 19:41 | Progress Note - Cardiology ---
Cardiology SOAP Progress Note Subjective: She is not able to provide any history Daughter and son-in-law by bedside Objective: I&O/Vital Signs 11/06/19 09:00 Pulse Ox 96 O2 Delivery Room Air 11/06/19 00:00 Intake Total 0 ml Output Total 300 ml Balance -300 ml Weight (Pounds): 220 Weight (Ounces): 3.5 Weight (Calculated Kilograms): 99.139922 Constitutional: other (opens eyes; moaning) Respiratory: No accessory muscle use, No respiratory distress; chest expansion is symmetric, chest is bilaterally symmetric, other (fair air entry) Cardiovascular: regular rate-rhythm, S1 and S2, systolic murmur Gastrointestional: round, audible bowel sounds Extremities: other (pitting edema to LE bilat) Neurologic/Psychiatric: other (does not follow commands) Skin: ulcerations on exposed areas (multiple lesions to arms, legs and back; multiple brusises to upper torso) Results/Procedures: Labs Microbiology 11/04/19 Urine Culture - Preliminary, Resulted Escherichia coli Enterococcus faecalis 11/04/19 MRSA Screen - Final, Complete MRSA not isolated 11/04/19 Blood Culture - Preliminary, Resulted No growth A/P: Assessment: Demential and verbal unresponsiveness New onset of A Fib at approx 6:30 pm on 11/04/19 Sepsis with assoc hypotension, likely secondary to UTI Acute resp insufficiency with hypoxia Marked anemia of undetermined etiology, being managed by the Med Svce Elevated troponin - likely Type 2 [place] - d/t transient hypoxia and hypotension Echo on 11/04/19: LVEF 60-65%, grade 2 pimentel dysfunction, mild LA dilation, RVSP 26 mmHg Hypokalemia H/o dementia DM 2 Multiple skin lesions (bullous pemphigoid, by history) - following with dermatology Non-ambulatory - bed bound - h/o pressure ulcers Plan: * I had a detailed conversation with her daughter regarding pt's CV issues * Family has decided on comfort care only Clinical Quality Measures Type of Care: Type of Care: Comfort Measures KIAN DAY MD FACP FAC CCDS Nov 06, 2019 19:41
[2019-11-07] MEDS: morphine INJ 4 MG/ML 1 ML (VIAL/SYRINGE) IV PRN ×2 (00:48→09:49)
[2019-11-07] MEDS: LORazepam INJ 2 MG/ML (ATIVAN) VIAL IVP PRN ×4 (01:49→20:11)
[2019-11-07] MEDS: fentaNYL INJECTION 100 MCG/2 ML AMP IVP PRN ×3 (02:30→17:41)
--- NOTE | 2019-11-07 07:00 | Progress Note ---
Subjective Date Seen by a Provider: Nov 07, 2019 Time Seen by a Provider: 07:05 Subjective/Events-last exam Patient is resting comfortably this morning. She is not responsive. Her daughter and son-in-law are at bedside. They currently do not have any questions. Focused Exam Lactate Level 11/04/19 09:49: Lactic Acid Level 2.92*H 11/04/19 11:30: Lactic Acid Level 2.82*H 11/04/19 15:00: Lactic Acid Level 2.36*H Objective Exam Vital Signs Date Time Temp Pulse Resp B/P (MAP) Pulse Ox O2 Delivery O2 Flow Rate FiO2 11/07/19 02:30 36.7 11/07/19 00:48 36.7 11/06/19 20:30 96 Room Air 11/06/19 20:22 36.7 11/06/19 09:00 96 Room Air I & O 11/07/19 07:00 Intake Total 0 ml Output Total 700 ml Balance -700 ml Capillary Refill : Less Than 3 SecondsLess Than 3 Seconds General Appearance: No Apparent Distress Respiratory: Lungs Clear Cardiovascular: Regular Rate, Rhythm; No Tachycardia Gastrointestinal: soft Skin: Other (Pale) Results Lab Microbiology 11/04/19 Urine Culture - Preliminary, Resulted Escherichia coli Enterococcus faecalis 11/04/19 MRSA Screen - Final, Complete MRSA not isolated 11/04/19 Blood Culture - Preliminary, Resulted No growth Assessment/Plan Assessment/Plan Assess & Plan/Chief Complaint 1. Urosepsis and most likely this is Escherichia coli since she has had multiple Escherichia coli urinary tract infections in the past -Patient has received cefepime as well as vancomycin in the emergency depar tment. She has also been continued on cefepime on a daily basis. -We will continue to monitor her CBC and overall hydration status. She is currently at 175 mL/h on IV fluids -Blood and urine cultures pending 11/05 -patient open eyes this morning and gave yesterday no answers but rather slowly -today I spoke with patient's daughter who was also in communication with her that they would like to not see their mother suffer. I informed him we would consult hospice care. -Will continue with IV fluids as well as IV antibiotic cefepime 11/06 -Urine culture reveals Escherichia coli and enterococcus -Hospice care initiated yesterday afternoon at family's request 11/07 -comfort care continues 2. Elevated troponin and this may be related to sepsis but must consider cardiac as well -Cardiology consultation was obtained through emergency room doctor. -She apparently has undergone echocardiogram 3. Diabetes mellituscontrol needs improvement -Sliding-scale insulin currently with 4 times a day checks of glucose 11/07 -Glucose checks discontinued Clinical Quality Measures Admission Status Admission Dx 1. Urosepsis and most likely this is Escherichia coli since she has had multiple Escherichia coli urinary tract infections in the past 2. Elevated troponin and this may be related to sepsis but must consider cardiac as well 3. Diabetes mellituscontrol needs improvement DVT/VTE Risk/Contraindication: Risk Factor Score Per Nursin RFS Level Per Nursing on Admit: 4+=Very High EFRAIN HIDALGO MD Nov 07, 2019 07:00
--- NOTE | 2019-11-07 12:00 | NUR ---
CONTINUE ON COMFORT CARE, HEEL PROTECTORS ON, MULTIPLE DRESSING OVER BODY WITH BLISTERS, TRIPLE LUMEN WITHOUT REDNESS OR SWELLING, PATIENT TURNED WHEN FAMILY WILL ALLOW, DRESSING ON COCCXY, SMALL AMOUNT BLEEDING FROM DRESSING, ORAL CARE GIVEN, PATIENT, FAMILY AT BEDSIDE, MEDICATED WITH PRN FENTANYL AND ATIVAN FOR COMFORT, WILL CONTINUE TO MONITOR
--- NOTE | 2019-11-07 12:34 | NUR ---
PALLIATIVE CARE RN in to see patient and talk with family. Patient has declined since yesterday, noting a more fluid depleted look to her face. Her right hand/arm is swollen and uncomfortable according to family. Patient is less responsive today noticed when she did not "mean mug" me and grab my hand when I gave oral care. She did allow me to clean her teeth and the dried oral secretions that were caked on her lips. Patient ears are thinning but have yet to start turning in. It is anticipated that she will continue to decline and pass in the next 24-48 hours. I have spoken to the family and discussed that if she does not pass we would need to look at discharge back to [facility] with hospice(or other SNF of choice). They family had previously been under the miss understanding that they could be here for [address] Perrin updated on the above.
--- NOTE | 2019-11-07 13:49 | NUR ---
Extended visit offering comforting presence and empathic listening for pt's daughter Aubrie and sons. Offered gentle direction as they make end of life arrangements. The family said they will work with [facility] in [place].
--- NOTE | 2019-11-07 20:10 | NUR ---
unable to do thorough assessment at this time. comfort care pt family asked to let pt rest at this time.
[2019-11-08] MEDS: morphine INJ 4 MG/ML 1 ML (VIAL/SYRINGE) IV PRN ×3 (01:50→06:40)
[2019-11-08] MEDS: LORazepam INJ 2 MG/ML (ATIVAN) VIAL IVP PRN ×2 (02:24→07:50)
[2019-11-08] MEDS: fentaNYL INJECTION 100 MCG/2 ML AMP IVP PRN ×2 (02:58→07:32)
--- NOTE | 2019-11-08 07:30 | NUR ---
MOANING AND GRIMACING AND APPEARS VERY UNCOMFORTABLE. DTR REQUESTING MS. NOT TIME FOR MS. FENTANYL 25MCG IV FOR DISCOMFORT. DTR. REQUESTING MS BE CHANGED TO Q1H.
--- NOTE | 2019-11-08 07:50 | NUR ---
ATIVAN 1MG IV PER DTR REQUEST PT CONT TO MOAN AND APPEARS VERY RESTLESS.
[2019-11-08] MEDS: morphine PCA 100 MG/100 ML BAG IV PRN (10:45)
[2019-11-08] MEDS: NS IV 1000 ML 1,000 ML IV SCH (10:50)
--- NOTE | 2019-11-08 11:00 | NUR ---
SPOKE WITH DR. BARRY (COVERING FOR DR. HIDALGO) AND [facility] MS ORDERED.
[2019-11-08] MEDS ORDERED: SCOPOLAMINE PATCH REMOVAL TP SCH (13:44)
--- NOTE | 2019-11-08 13:52 | Progress Note - Hospitalist ---
Subjective HPI/CC On Admission Date Seen by Provider: Nov 08, 2019 Time Seen by Provider: 13:00 Subjective/Events-last exam Patient is on comfort care. She is poorly responsive with very dry oral mucosa resting comfortably. She was placed on a morphine drip this morning with great improvement in her agitation and her pain control Objective Exam Vital Signs Vital Signs Date Time Temp Pulse Resp B/P (MAP) Pulse Ox O2 Delivery O2 Flow Rate FiO2 11/08/19 09:00 Room Air 11/07/19 09:00 95 11/07/19 02:30 36.7 11/05/19 12:41 67 11/05/19 12:00 33 119/53 (75) 11/04/19 07:22 50.00 Capillary Refill : Less Than 3 SecondsLess Than 3 Seconds General Appearance: Other (And responsive) Respiratory: Lungs Clear Cardiovascular: Regular Rate, Rhythm Gastrointestinal: Normal Bowel Sounds, Soft Skin: Other (Scabbed over ulcerations from bullous pemphigoid) Results/Procedures Lab Patient resulted labs reviewed. Assessment/Plan Assessment and Plan Assess & Plan/Chief Complaint Sepsis Bullous pemphigoid End-of-life care with comfort care measures Clinical Quality Measures DVT/VTE Risk/Contraindication: Risk Factor Score Per Nursin RFS Level Per Nursing on Admit: 4+=Very High LISSETH BARRY MD Nov 08, 2019 13:52
--- NOTE | 2019-11-08 14:00 | NUR ---
RESTING COMFORTABLY AT THIS TIME. DTR STATES SHE IS PLEASED WITH MOTHER'S COMFORT LEVEL.
[2019-11-08] MEDS: SCOPOLAMINE 1.5 MG (TRANSDERM-SCOP) PATCH TOP SCH (15:09)
[2019-11-09] MEDS: ARTIFICAL TEARS 0.4 ML UNIT DOSE (REFRESH PLUS) OU PRN (10:52)
[2019-11-09] MEDS: NS IV 1000 ML 1,000 ML IV SCH (10:56)
--- NOTE | 2019-11-09 13:08 | Progress Note - Hospitalist ---
Subjective HPI/CC On Admission Date Seen by Provider: Nov 09, 2019 Time Seen by Provider: 12:30 Subjective/Events-last exam Patient remains unresponsive on a morphine drip. Family is in the room. They have no concerns and are pleased with her care Objective Exam Vital Signs Vital Signs Date Time Temp Pulse Resp B/P (MAP) Pulse Ox O2 Delivery O2 Flow Rate FiO2 11/09/19 09:00 Room Air 11/09/19 08:20 28 11/07/19 09:00 95 11/07/19 02:30 36.7 11/05/19 12:41 67 11/05/19 12:00 119/53 (75) 11/04/19 07:22 50.00 Capillary Refill : Less Than 3 SecondsLess Than 3 Seconds General Appearance: Chronically ill Respiratory: Decreased Breath Sounds Cardiovascular: Regular Rate, Rhythm Gastrointestinal: Soft Results/Procedures Lab Patient resulted labs reviewed. Assessment/Plan Assessment and Plan Assess & Plan/Chief Complaint Sepsis Bullous pemphigoid End-of-life care with comfort care measures Clinical Quality Measures DVT/VTE Risk/Contraindication: Risk Factor Score Per Nursin RFS Level Per Nursing on Admit: 4+=Very High LISSETH BARRY MD Nov 09, 2019 13:08
[2019-11-09] MEDS: morphine PCA 100 MG/100 ML BAG IV PRN (14:50)
--- NOTE | 2019-11-09 15:16 | NUR ---
new morphine bag hung, 21ml wasted by Nelly GLYNN
[2019-11-09] MEDS: LORazepam INJ 2 MG/ML (ATIVAN) VIAL IVP PRN (16:38)
[2019-11-10] MEDS: ARTIFICAL TEARS 0.4 ML UNIT DOSE (REFRESH PLUS) OU PRN (04:50)
--- NOTE | 2019-11-10 07:24 | Progress Note ---
Subjective Date Seen by a Provider: Nov 10, 2019 Time Seen by a Provider: 07:15 Subjective/Events-last exam Daughter and son-in-law at bedside. They report that Chio started having respiratory gurgling sounds in early a.m. She is not producing urine. Objective Exam Vital Signs Date Time Temp Pulse Resp B/P (MAP) Pulse Ox O2 Delivery O2 Flow Rate FiO2 11/09/19 21:00 32 11/09/19 20:10 Room Air 11/09/19 19:33 28 11/09/19 14:53 36.7 28 11/09/19 09:00 Room Air 11/09/19 08:20 28 I & O 11/10/19 07:00 Intake Total 720 ml Output Total 175 ml Balance 545 ml Capillary Refill : Less Than 3 SecondsLess Than 3 Seconds General Appearance: No Apparent Distress (With respiratory rattle) Respiratory: Rhonci Cardiovascular: Regular Rate, Rhythm Results Lab Microbiology 11/04/19 Urine Culture - Final, Complete Escherichia coli Enterococcus faecalis 11/04/19 MRSA Screen - Final, Complete MRSA not isolated 11/04/19 Blood Culture - Final, Complete No growth Assessment/Plan Assessment/Plan Assess & Plan/Chief Complaint 1. Urosepsis and most likely this is Escherichia coli since she has had multiple Escherichia coli urinary tract infections in the past -Patient has received cefepime as well as vancomycin in the emergency dep artment. She has also been continued on cefepime on a daily basis. -We will continue to monitor her CBC and overall hydration status. She is currently at 175 mL/h on IV fluids -Blood and urine cultures pending 11/05 -patient open eyes this morning and gave yesterday no answers but rather slowly -today I spoke with patient's daughter who was also in communication with her that they would like to not see their mother suffer. I informed him we would consult hospice care. -Will continue with IV fluids as well as IV antibiotic cefepime 11/06 -Urine culture reveals Escherichia coli and enterococcus -Hospice care initiated yesterday afternoon at family's request 11/07 -comfort care continues 11/10 -end of life near. rattle today 2. Elevated troponin and this may be related to sepsis but must consider cardiac as well -Cardiology consultation was obtained through emergency room doctor. -She apparently has undergone echocardiogram 3. Diabetes mellituscontrol needs improvement -Sliding-scale insulin currently with 4 times a day checks of glucose 11/07 -Glucose checks discontinued Clinical Quality Measures Admission Status Admission Dx 1. Urosepsis and most likely this is Escherichia coli since she has had multiple Escherichia coli urinary tract infections in the past 2. Elevated troponin and this may be related to sepsis but must consider cardiac as well 3. Diabetes mellituscontrol needs improvement DVT/VTE Risk/Contraindication: Risk Factor Score Per Nursin RFS Level Per Nursing on Admit: 4+=Very High EFRAIN HIDALGO MD Nov 10, 2019 07:24
== END 2019-11-10 12:20 | disposition expired | DRG 871 ==
LOC: EDUNIT# 07:04 → ER 07:04 → ICU 09:39 → 4TH 11-05 14:58
PROVIDERS: ADMIT Family Medicine; ATTEND Family Medicine
PROC: 02HV33Z Insertion of Infusion Device into Superior Vena Cava, Percutaneous Approach (ICD-10-PCS; principal; 2019-11-04)
DX: A41.51 Sepsis due to Escherichia coli [E. coli] (principal); I21.A1 Myocardial infarction type 2; N39.0 Urinary tract infection, site not specified; L12.0 Bullous pemphigoid; Z66 Do not resuscitate; J44.9 Chronic obstructive pulmonary disease, unspecified; I10 Essential (primary) hypertension; G30.9 Alzheimer's disease, unspecified; F02.80 Dementia in other diseases classified elsewhere, unspecified severity, without behavioral disturbance, psychotic disturbance, mood disturbance, and anxiety; K21.9 Gastro-esophageal reflux disease without esophagitis; M10.9 Gout, unspecified; M19.90 Unspecified osteoarthritis, unspecified site; E66.9 Obesity, unspecified; E11.9 Type 2 diabetes mellitus without complications; F41.9 Anxiety disorder, unspecified; F32.9 Major depressive disorder, single episode, unspecified; D64.9 Anemia, unspecified; E87.6 Hypokalemia; I48.91 Unspecified atrial fibrillation; R09.02 Hypoxemia; Z87.440 Personal history of urinary (tract) infections; Z79.82 Long term (current) use of aspirin; Z87.891 Personal history of nicotine dependence; Z95.5 Presence of coronary angioplasty implant and graft; Z90.710 Acquired absence of both cervix and uterus; Z68.37 Body mass index [BMI] 37.0-37.9, adult; Z79.4 Long term (current) use of insulin
CPT/HCPCS: 36415; 36556; 36600; 71045; 80048; 80053; 81000; 82274; 82805; 82962; 83605; 83735; 83880; 84100; 84484; 85007; 85025; 85027; 85610; 85730; 86850; 86900; 86901; 87040; 87077; 87081; 87088; 87186; 87804; 93005; 93306; 96361; 96365; 96367; 96372; 96375